=== PATIENT | female | born 1935 | race Caucasian/White ===

== ENCOUNTER → 2016-05-18 | Outpatient (REF) | payer MEDICARE ==
[~2016-05-18] MED LIST: ACET500T2; ACET65TA; AFRI0.65; AMLO10TA; AMLO10TA2 PO; ASPI1TAB24 PO; ASPI81TA63; BABY81CH; BENETAB; BISA5TA; CARB1TAB20 PO; COLA100C2; COUM2.5T11 PO; DIOV80TA; DRIS50002 PO; FERR325T3 PO; MAALOX; MILKSUS; MYLICON; NORV5TAB; OMEP40CA2 PO; PRIL20CA; PROBCAP4 PO; SENOKOT; TEGR200T; TRAM50TA2; TUMS500C; TYLE325T5 PO; ULTR50TA PO; VALS160T PO; VIACTIN; VITAMIN D50000 UNT; [UNRECOGNIZED DRUG - OTHER]; lactaid OR; vitamin B12 INJ
[2016-05-18 12:56] LABS: CARBAMAZEPINE (TEGRETOL) LEVEL 6.3 UG/ML (4.0-10.0)
== END ==
LOC: M LAB REF 11:51
PROVIDERS: ATTEND Family Medicine
DX: G50.0 Trigeminal neuralgia (principal); D51.9 Vitamin B12 deficiency anemia, unspecified

== ENCOUNTER → 2016-08-23 | Outpatient (CLI) | payer MEDICARE ==
--- NOTE | 2016-08-23 10:19 | REPMRS ---
Patient History The patient states she had a clinical breast exam in 12/25 Patient is postmenopausal and has history of other cancer. No known family history of cancer. Took hormonal contraceptives for 1 year. Digital Woman Screen Mammo: August 23, 2016 - Exam #: [id number] Bilateral CC and MLO view(s) were taken. Technologist: Kimmy mAes, Technologist Prior study comparison: August 14, 2015, digital woman screen mammo performed at [facility]. July 29, 2014, digital woman screen mammo performed at [facility]. July 26, 2013, bilateral bilat screen digital mammo, performed at [facility] ([facility]). FINDINGS: There are scattered fibroglandular densities. There has been no change in the appearance of the mammogram from the prior studies. There is a mild amount of scattered fibroglandular density which is fairly symmetric. There is no interval development of dominant mass, architectural distortion, or clustered microcalcification suggestive of malignancy. ASSESSMENT: BI-RADS/ACR category 1 mammogram. Negative. Recommendation Routine screening mammogram in 1 year (for women over age 40). This mammogram was interpreted with the aid of an FDA-approved computer-aided dectection system. Electronically Signed By: Shiv Guerra MD 08/23/16 [id number]
== END ==
LOC: M WHC 09:09
PROVIDERS: ATTEND Family Medicine
DX: Z12.31 Encounter for screening mammogram for malignant neoplasm of breast (principal)

== ENCOUNTER → 2016-08-31 | Outpatient (REF) | payer MEDICARE | LOC: M LAB REF 12:52 | PROVIDERS: ATTEND Physician Assistant | DX: J02.9 Acute pharyngitis, unspecified (principal) ==

== ENCOUNTER → 2016-10-08 | Outpatient (RCR) | payer MEDICARE ==
[~2016-10-08] MED LIST changes: +ASPI-161 PO; -ASPI1TAB24 PO; -COUM2.5T11 PO; +COUM2.5T17 PO; -ULTR50TA PO; +ULTR50TA8 PO
== END | disposition home or self-care (01) ==
LOC: M PT 09-29 08:16 → M OT 10-06 07:18 → M PT 08:15
PROVIDERS: ATTEND Physician Assistant
DX: Z51.89 Encounter for other specified aftercare (principal); M76.829 Posterior tibial tendinitis, unspecified leg
CPT/HCPCS: 97110; 97161; 97165; G8978; G8979; G8984; G8985; G8986

== ENCOUNTER 2016-10-13 08:01 | Outpatient (RCR) | payer MEDICARE | END 2016-11-08 | LOC: M OT 08:01 | PROVIDERS: ATTEND Physician Assistant | DX: M76.821 Posterior tibial tendinitis, right leg (principal); M19.031 Primary osteoarthritis, right wrist | CPT/HCPCS: 97110; 97112; 97162; 97530; G8978; G8979; G8980; G8990; G8991 ==

== ENCOUNTER 2016-11-01 08:05 | Outpatient (RCR) | payer MEDICARE | END 2016-11-08 | LOC: M PT 08:05 | PROVIDERS: ATTEND Physician Assistant | DX: H81.13 Benign paroxysmal vertigo, bilateral (principal) ==

== ENCOUNTER 2016-11-16 08:09 | Outpatient (RCR) | payer MEDICARE | END 2016-12-09 | disposition home or self-care (01) | LOC: M PT 08:09 | PROVIDERS: ATTEND Physician Assistant | DX: Z51.89 Encounter for other specified aftercare (principal); H81.13 Benign paroxysmal vertigo, bilateral | CPT/HCPCS: 97530; G8978; G8979 ==

== ENCOUNTER → 2016-11-25 | Outpatient (REF) | payer MEDICARE ==
[2016-11-30 14:14] LABS: HEMOGLOBIN A 89.6 % (94.0-98.0); HEMOGLOBIN F (FETAL) 8.3 % (0.0-2.0)
== END ==
LOC: M LAB REF 15:32
PROVIDERS: ATTEND Family Medicine
DX: D64.9 Anemia, unspecified (principal); G50.0 Trigeminal neuralgia; Z51.81 Encounter for therapeutic drug level monitoring

== ENCOUNTER → 2017-03-07 | Outpatient (REF) | payer MEDICARE | LOC: M LAB REF 13:20 | PROVIDERS: ATTEND Physician Assistant | DX: J02.9 Acute pharyngitis, unspecified (principal) ==

== ENCOUNTER 2017-05-02 11:12 | Outpatient (RCR) | payer MEDICARE | END 2017-05-11 | LOC: M PT 11:12 | DX: Z51.89 Encounter for other specified aftercare (principal); R42 Dizziness and giddiness | CPT/HCPCS: 97162 ==

== ENCOUNTER 2017-05-17 08:13 | Outpatient (RCR) | payer MEDICARE | END 2017-06-08 | LOC: M PT 08:13 | DX: Z51.89 Encounter for other specified aftercare (principal); H81.13 Benign paroxysmal vertigo, bilateral | CPT/HCPCS: 97112 ==

== ENCOUNTER → 2017-06-07 | Outpatient (REF) | payer MEDICARE ==
[2017-06-07 13:22] LABS: VITAMIN B12 LEVEL 374 PG/ML (247-911)
[2017-06-07 13:25] LABS: CARBAMAZEPINE (TEGRETOL) LEVEL 6.9 UG/ML (4.0-10.0)
== END ==
LOC: M LAB REF 12:19
DX: G50.0 Trigeminal neuralgia (principal); D51.9 Vitamin B12 deficiency anemia, unspecified; Z51.81 Encounter for therapeutic drug level monitoring
CPT/HCPCS: 82607

== ENCOUNTER 2017-06-14 08:18 | Outpatient (RCR) | payer MEDICARE | END 2017-07-09 | LOC: M PT 08:18 | DX: Z51.89 Encounter for other specified aftercare (principal); R42 Dizziness and giddiness | CPT/HCPCS: 97112 ==

== ENCOUNTER → 2017-08-16 | Outpatient (CLI) | payer MEDICARE | LOC: M WHC 09:01 | DX: Z12.31 Encounter for screening mammogram for malignant neoplasm of breast (principal); M85.80 Other specified disorders of bone density and structure, unspecified site | CPT/HCPCS: 77067 ==

== ENCOUNTER → 2017-12-14 | Outpatient (CLI) | payer MEDICARE | LOC: M WUC 09:56 | DX: R06.02 Shortness of breath (principal) | CPT/HCPCS: 71046 ==

== ENCOUNTER → 2018-01-19 | Outpatient (REF) | payer MEDICARE ==
[2018-01-19 14:53] LABS: ALBUMIN 3.2 GM/DL (3.2-5.2); ALBUMIN/GLOBULIN RATIO 0.82 (1.00-1.93); ALKALINE PHOSPHATASE 103 U/L (45-117); ALT/SGPT 11 U/L (12-78); ANION GAP 6 MEQ/L (8-16); AST/SGOT 14 U/L (7-37); BILIRUBIN,TOTAL 0.4 MG/DL (0.2-1.0); BLOOD UREA NITROGEN 20 MG/DL (7-18); CALCIUM LEVEL 9.1 MG/DL (8.8-10.2); CARBON DIOXIDE LEVEL 32 MEQ/L (21-32); CHLORIDE LEVEL 103 MEQ/L (98-107); CREATININE FOR GFR 0.56 MG/DL (0.55-1.30); GLOMERULAR FILTRATION RATE > 60.0 (>32); GLUCOSE, FASTING 98 MG/DL (70-100); POTASSIUM SERUM 4.2 MEQ/L (3.5-5.1); RHEUMATOID FACTOR QUANT < 10.0 IU/ML (<15.0); SODIUM LEVEL 141 MEQ/L (136-145); TOTAL PROTEIN 7.1 GM/DL (6.4-8.2)
[2018-01-19 14:59] LABS: FOLATE > 24.0 NG/ML
[2018-01-19 15:00] LABS: ESTIMATED AVERAGE GLUCOSE 100 MG/DL (60-110); HEMOGLOBIN A1c 5.1 %
[2018-01-19 15:24] LABS: BASO # 0.1 10^3/uL (0.0-0.2); BASO % 0.9 % (0.0-1.0); EOS # 0.3 10^3/uL (0.0-0.50); EOS % 3.6 % (0.0-3.0); HEMATOCRIT 34.7 % (36.0-47.0); HEMOGLOBIN 10.6 g/dl (12.0-15.5); IMMATURE GRANULOCYTE % 0.3 % (0-3.0); LYMPH # 1.5 10^3/uL (1.5-4.5); MEAN CORPUSCULAR HEMOGLOBIN 21.1 pg (27.0-33.0); MEAN CORPUSCULAR HGB CONC 30.5 g/dl (32.0-36.5); MEAN CORPUSCULAR VOLUME 69.1 fl (80.0-96.0); MONO # 0.9 10^3/uL (0.0-0.8); MONO % 10.3 % (0.0-5.0); NEUTROPHILS # 5.9 10^3/uL (1.8-7.7); NEUTROPHILS % 67.9 % (36.0-66.0); PLATELET COUNT, AUTOMATED 203 10^3/uL (150-450); RED BLOOD COUNT 5.02 10^6/uL (4.00-5.40); RED CELL DISTRIBUTION WIDTH 20.1 % (11.5-14.5); WHITE BLOOD COUNT 8.6 10^3/uL (4.0-10.0)
[2018-01-19 16:05] LABS: ERYTHROCYTE SEDIMENTATION RATE 30 mm/hr (0-30)
[2018-01-23 00:07] LABS: ANTI DOUBLE STRAND-DNA AB 12 IU/mL (0-9); ANTINUCLEAR ANTIBODIES DIRECT Positive (Negative); RNP ANTIBODIES <0.2 AI (0.0-0.9); SJOGREN'S ANTI SS-A <0.2 AI (0.0-0.9); SJOGREN'S ANTI SS-B <0.2 AI (0.0-0.9); SMITH ANTIBODIES <0.2 AI (0.0-0.9); VITAMIN B1 LEVEL WHOLE BLOOD 139.2 nmol/L (66.5-200.0); VITAMIN B6,PYRIDOXAL PHOSPHATE 5.9 ug/L (2.0-32.8); VITAMIN E(ALPHA TOCOPHEROL) 30.8 mg/L (9.0-29.0); VITAMIN E(GAMMA TOCOPHEROL) 0.8 mg/L (0.5-4.9)
[2018-01-24 10:27] LABS: DRVV SCREEN 38.8 SEC
[2018-01-24 10:33] LABS: PTT LUPUS TYPE ANTICOAG SCREEN 0.9 (0-1.2)
[2018-01-24 12:33] LABS: ALBUMIN 3.48 GM/DL (3.29-5.55); ALPHA-1-GLOBULIN % 5.1 % (2.9-4.9); ALPHA-1-GLOBULINS 0.36 GM/DL (0.17-0.41); ALPHA-2-GLOBULINS 0.78 GM/DL (0.42-0.99); BETA-1-GLOBULINS 0.45 GM/DL (0.28-0.60); BETA-1-GLOBULINS % 6.4 % (4.7-7.2); BETA-2-GLOBULINS % 7.2 % (3.2-6.5); GAMMA GLOBULIN % 21.3 % (11.1-18.8)
[2018-01-24 12:34] LABS: BETA-2-GLOBULINS 0.51 GM/DL (0.19-0.55); GAMMA GLOBULINS 1.51 GM/DL (0.65-1.58)
== END ==
LOC: M LABNEURO 10:26
DX: R42 Dizziness and giddiness (principal); G62.9 Polyneuropathy, unspecified
CPT/HCPCS: 82746

== ENCOUNTER → 2018-07-03 | Outpatient (REF) | payer MEDICARE ==
[~2018-07-03] MED LIST changes: -AMLO10TA2 PO; +AMLO10TA5 PO; -DRIS50002 PO; +DRIS50003 PO
[2018-07-03 18:20] LABS: FERRITIN 38 NG/ML (8-252)
[2018-07-03 18:28] LABS: FOLATE > 24.0 NG/ML; VITAMIN B12 LEVEL 477 PG/ML
== END ==
LOC: M LAB REF 16:45
PROVIDERS: ATTEND Family Medicine
DX: D56.8 Other thalassemias (principal)

== ENCOUNTER → 2018-08-23 | Outpatient (CLI) | payer MEDICARE ==
--- NOTE | 2018-08-23 11:36 | REPMRS ---
Patient History The patient states she has not had a clinical breast exam in over a year. No known family history of cancer. Took hormonal contraceptives for 1 year. Digital Woman Screen Mammo: August 23, 2018 - Exam #: [id number] Bilateral CC and MLO view(s) were taken. Technologist: Kimmy Ames, Technologist Prior study comparison: August 16, 2017, digital woman screen mammo performed at [facility]. August 23, 2016, digital woman screen mammo performed at [facility]. August 14, 2015, digital woman screen mammo performed at [facility]. FINDINGS: There are scattered fibroglandular densities. There has been no change in the appearance of the mammogram from the prior studies. There is a mild amount of scattered fibroglandular density which is fairly symmetric. There is no interval development of dominant mass, architectural distortion, or clustered microcalcification suggestive of malignancy. 3-D tomosynthesis shows no additional findings. Assessment: BI-RADS/ACR category 1 mammogram. Negative Mammogram. Recommendation Routine screening mammogram of both breasts in 1 year (for women over age 40). This patient's Lifetime Breast Cancer RIsk is estimated at 0.7 %. This mammogram was interpreted with the aid of an FDA-approved computer-aided dectection system. Electronically Signed By: Shiv Guerra MD 08/23/18 [id number]
== END ==
LOC: M WHC 08:44
PROVIDERS: ATTEND Family Medicine
DX: Z12.31 Encounter for screening mammogram for malignant neoplasm of breast (principal); Z78.0 Asymptomatic menopausal state

== ENCOUNTER → 2018-10-20 | Outpatient (CLI) | payer MEDICARE ==
--- NOTE | 2018-10-20 10:03 | REP ---
CHEST, TWO VIEWS: Two views of the chest are performed and compared to a prior study of 12/14/2017. There is mild cardiomegaly. There is mild bibasilar fibroatelectatic change. There is mild elevation of the right hemidiaphragm. No new infiltrate is seen. There is calcification and tortuosity of the thoracic aorta. The mediastinal silhouette is unchanged. There are mild degenerative changes of the spine. IMPRESSION: Mild cardiomegaly and stable chronic findings. No evidence of acute infiltrate. Electronically Signed by Justyn Tamayo MD 10/21/2018 10:49 A
== END ==
LOC: M WUC 09:12
PROVIDERS: ATTEND Physician Assistant
DX: I51.7 Cardiomegaly (principal); R05 Cough

== ENCOUNTER → 2018-12-15 | Outpatient (REF) | payer MEDICARE | LOC: M LAB REF 16:36 | PROVIDERS: ATTEND Family Medicine | DX: G50.0 Trigeminal neuralgia (principal) ==

== ENCOUNTER → 2019-11-01 | Outpatient (CLI) | payer MEDICARE ==
[~2019-11-01] MED LIST changes: +ACET-683 PO; +ACET1TAB55 PO; -AMLO10TA5 PO; +AMLO1TAB25 PO; +ASPI-312 PO; +ASPI81TA86 PO; +ASPI81TAEC PO; +CARB20TA PO; +GABA-843 PO; +IBUP1TAB6 PO; -OMEP40CA2 PO; +OMEP40CA97 PO; +TRAM50TA2 PO; -VALS160T PO; +VALS160T2 PO; +VITA50005 PO; +VITMTA PO; +XARE10TA PO
--- NOTE | 2020-01-15 12:03 | DEXA ---
AP SPINE L1 - L4 1.018 -1.4 0.5 LT FEMUR TOTAL 0.753 -2.0 0.2 LT NECK 0.689 -2.5 -0.2 RT FEMUR TOTAL 0.752 -2.0 0.2 RT NECK 0.660 -2.7 -0.4 TOTAL BODY TOTAL OTHER COMMENTS: There is low bone density of the spine. 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 The density of the spine is increased 7.3% since the initial exam on 04/14/2000. The increased 3.7% since most recent exam on 08/16/2017. The density of the left hip has decreased 20.3% since the initial exam on 05/24/2002. The density of the left hip has decreased 2.5% since the most recent exam on 08/16/2017. The density of the right hip has decreased 19.8% since the initial exam on 04/14/2000. The density of the right hip has increased 1.6% since the most recent exam on 08/16/2017. FOLLOW-UP: Recommendation for the next bone density exam: 2 years. BRYANT
== END ==
LOC: M WHC 13:16
PROVIDERS: ATTEND Family Medicine
DX: Z13.820 Encounter for screening for osteoporosis (principal); M85.88 Other specified disorders of bone density and structure, other site; M81.0 Age-related osteoporosis without current pathological fracture

== ENCOUNTER → 2019-11-27 | Outpatient (CLI) | payer MEDICARE ==
--- NOTE | 2020-01-04 07:44 | REP ---
CHEST X-RAY: 2-VIEWS COMPARISON: 10/20/2018. HISTORY: Shortness of breath. FINDINGS: There is elevation of the right hemidiaphragm unchanged due to a large anterior eventration. There is chronic atelectasis versus linear fibrosis in the right middle lobe above the elevated right hemidiaphragm also unchanged. The lung romero are otherwise clear. Pleural angles are sharp. Heart size is borderline unchanged. The thoracic aorta is somewhat tortuous. Pulmonary vasculature is not increased. No acute bony abnormality is seen. There are clips in the right hemidiaphragm. IMPRESSION: Large eventration elevating right hemidiaphragm. Plate-like atelectasis versus scarring right base. Otherwise, no acute disease. MTDD
== END ==
LOC: M WUC 10:17
PROVIDERS: ATTEND Family Medicine
DX: J98.6 Disorders of diaphragm (principal)

== ENCOUNTER 2019-12-25 08:33 | Inpatient (IN) | payer MEDICARE ==
[~2019-12-25] VITALS: Ht 157.5 cm; Wt 73.6 kg
[~2019-12-25 08:33] MED LIST changes: -ACET-683 PO; -ACET1TAB55 PO; -ASPI-312 PO; -ASPI81TA86 PO; -ASPI81TAEC PO; -CARB20TA PO; -GABA-843 PO; -IBUP1TAB6 PO; -TRAM50TA2 PO; -VITA50005 PO; -VITMTA PO; -XARE10TA PO
[2019-12-25] MEDS ORDERED: MORPHINE 4 MG/ML 1ML VIAL/SYRINGE (J2270) IV ONE (09:00)
[2019-12-25] MEDS ORDERED: NS 1,000 ML IV SCH (09:00)
[2019-12-25] MEDS ORDERED: ONDANSETRON 4MG/2ML VIAL IV ONE (09:00)
[2019-12-25 09:29] LABS: BASO # 0.1 10^3/uL (0.0-0.2); BASO % 0.9 % (0.0-1.0); EOS # 0.3 10^3/uL (0.0-0.5); EOS % 3.3 % (0.0-3.0); HEMOGLOBIN 10.5 g/dl (12.0-15.5); LYMPH # 1.1 10^3/uL (1.5-5.0); LYMPH % 12.2 % (24.0-44.0); MEAN CORPUSCULAR HGB CONC 30.9 g/dl (32.0-36.5); MONO # 0.6 10^3/uL (0.0-0.8); MONO % 7.1 % (0.0-5.0); NEUTROPHILS # 6.6 10^3/uL (1.5-8.5); NEUTROPHILS % 75.6 % (36.0-66.0); PLATELET COUNT, AUTOMATED 270 10^3/uL (150-450); WHITE BLOOD COUNT 8.7 10^3/uL (4.0-10.0)
[2019-12-25 09:44] LABS: INR 0.95; PROTHROMBIN TIME 12.9 SECONDS (11.8-14.0)
[2019-12-25 10:19] LABS: BLOOD UREA NITROGEN 19 MG/DL (7-18); CALCIUM LEVEL 8.4 MG/DL (8.8-10.2); CARBON DIOXIDE LEVEL 32 MEQ/L (21-32); CHLORIDE LEVEL 105 MEQ/L (98-107); CK-MB VALUE MASS 1.9 NG/ML (<3.6); CPK CREATINE PHOSPHOKINASE 74 U/L (26-192); GLOMERULAR FILTRATION RATE > 60.0 (>32); GLUCOSE, FASTING 105 MG/DL (70-100); MB/CK RELATIVE INDEX 2.57 (< OR =4); POTASSIUM SERUM 4.1 MEQ/L (3.5-5.1); SODIUM LEVEL 141 MEQ/L (136-145)
--- NOTE | 2019-12-25 10:35 | REPVR ---
PROCEDURE INFORMATION: Exam: XR Chest, 1 View Exam date and time: 12/25/2019 10:16 AM Age: 84 years old Clinical indication: Pain; Other: Broken hip; Additional info: Preop TECHNIQUE: Imaging protocol: XR of the chest Views: 1 view. COMPARISON: CR CHEST 2 VIEW 11/27/2019 10:17 AM (report not provided) FINDINGS: Tubes, catheters and devices: Surgical clips again overlie the right upper quadrant. Lungs: There is mild atelectasis/scarring at the right base. The lungs are otherwise clear. Pleural space: Unremarkable. No pleural effusion. No pneumothorax. Heart/Mediastinum: The cardiomediastinal silhouette is fairly stable in appearance, allowing for differences in technique. Diaphragm: The right hemidiaphragm is again elevated. Bones/joints: Degenerative changes again involve the spine and shoulders. IMPRESSION: No evidence for acute pulmonary disease. Electronically signed by: Juan Francisco Obrien On 12/25/2019 10:35:56 AM
--- NOTE | 2019-12-25 10:38 | REPVR ---
PROCEDURE INFORMATION: Exam: XR Left Hip with Pelvis when Performed Exam date and time: 12/25/2019 10:16 AM Age: 84 years old Clinical indication: Pain and injury or trauma; Fall; Initial encounter; Fracture of pelvis & hip; Not specified; Neck of femur; Hip pain and pelvic pain; Left hip; Patient HX: PT fell; Additional info: Include pelvis trauma TECHNIQUE: Imaging protocol: XR Left hip with pelvis when performed. Views: 2 or 3 views. COMPARISON: No relevant prior studies available. FINDINGS: Bones/joints: There is an acute, comminuted fracture through the intertrochanteric left femur, with fracture lines extending between the greater and lesser trochanters. The lesser trochanter is fractured and displaced in a comminuted fashion, with individual fragments measuring up to 3.6 cm. No fracture is identified elsewhere. The left hip joint is normally aligned. Right hip joint alignment cannot be confirmed without a lateral view. The femoral head articular contours are maintained, and the femoral heads appear to be of normal density. There is very mild osteophyte formation about the bilateral hip and sacroiliac joints. Lower lumbar spondylosis is noted. Mild productive change is present along the greater trochanter on the right. No focal lytic or blastic lesion is identified. Soft tissues: The soft tissues appear grossly unremarkable. IMPRESSION: 1. Acute proximal left femoral fracture. 2. Degenerative changes as described. Electronically signed by: Juan Francisco Obrien On 12/25/2019 10:37:34 AM
[2019-12-25] MEDS ORDERED: ACETAMINOPHEN TAB 650MG DOSE (2X325MG) PO PRN ×2 (11:00→19:30)
[2019-12-25] MEDS ORDERED: IBUP1TAB6 PO (11:11)
[2019-12-25] MEDS ORDERED: VITA50005 PO (11:11)
[2019-12-25] MEDS ORDERED: ASPI81TA86 PO (11:11)
[2019-12-25] MEDS ORDERED: ACET1TAB55 PO (11:11)
[2019-12-25] MEDS ORDERED: VITMTA PO (11:11)
[2019-12-25] MEDS ORDERED: MORPHINE 2 MG/ML 1ML VIAL (J2270) IV PRN (11:15)
--- NOTE | 2019-12-25 11:18 | HPEPDOC ---
General Date of Admission Dec 25, 2019 at 11:00 Date of Service: Dec 25, 2019 Chief Complaint The patient is a 84-year-old female admitted with a reason for visit of Closed Intertrochanteric Fx Of Left Femur. Source: Patient Exam Limitations: No limitations Timing/Duration: 4-6 hours Severity: Moderate History of Present Illness Patient is 84 years old female with past history of hypertension, vitamin D de ficiency, hyperlipidemia, trigeminal neuralgia, aortic stenosis presented hospital with left hip pain. Patient stated that she developed mechanical fall when she moved furniture. In ER patient was found to have Acute proximal left femoral fracture on the x-ray. Orthopedic surgeon Dr. Garcia was contacted by phone, he will evaluate patient today. Home Medications Scheduled Amlodipine Besylate (Amlodipine Besylate) 10 Mg Tab, 10 MG PO DAILY, (Reported) Carbamazepine (Carbamazepine) 200 Mg Tab, 200 MG PO DAILY, (Reported) Ergocalciferol (Vitamin D2) (Drisdol) 50,000 Unit Cap, 50,000 UNIT PO QWEEK, (Reported) Ferrous Sulfate (Ferrous Sulfate) 325 Mg Tab, 325 MG PO BID, (Reported) Lactobacillus Acidophilus (Probiotic) 1 Cap Cap, 1 CAP PO DAILY, (Reported) Omeprazole (Omeprazole) 40 Mg Cap, 40 MG PO DAILY, (Reported) Valsartan/Hydrochlorothiazide (Valsartan-Hctz 160-12.5 mg Tab) 1 Tab Tab, 1 TAB PO DAILY, (Reported) Warfarin Sodium (Coumadin) 2.5 Mg Tab, 2.5 MG PO 1T, (Reported) [lactaid] , OR PRN, (Reported) [vitamin B12] , INJ QMONTH, (Reported) Scheduled PRN Acetaminophen (Tylenol) 325 Mg Tab, 650 MG PO Q4HP PRN for TEMP > 100, (Reported) Tramadol HCl (Ultram) 50 Mg Tab, 50 MG PO Q4HP PRN for MODERATE PAIN (PS 5-7), (Reported) Allergies Coded Allergies: Penicillins (Verified Allergy, Unknown, 12/25/19) Quinolones (Verified Allergy, Unknown, 12/25/19) codeine (Verified Allergy, Unknown, 12/25/19) Past Medical History Medical History Osteoarthritis Hypertension Vitamin D deficiency Dyslipidemia Lactose intolerance Trigeminal neuralgia Gastroesophageal reflux disease De Quervain's tenosynovitis Aortic stenosis. Surgical History Right total knee replacement Family History I personally reviewed family history and found not pertinent Social History * Smoker: Denies Alcohol: Denies Drugs: denies A-FIB/CHADSVASC A-FIB History Current/History of A-Fib/PAF?: No Current PO Anticoag Therapy: No Review of Systems Constitutional: Denies: Chills Eyes: Denies: Pain ENT: Denies: Head Aches Skin: Denies: Rash, Lesions Pulmonary: Denies: Dyspnea Cardiovascular: Denies: Chest Pain, Palpitations Gastrointestinal: Denies: Nausea Hematologic: Denies: Bruising Endocrine: Denies: Polydipsia Musculoskeletal: Reports: Leg Pain Neurological: Denies: Weakness, Numbness Psych: Reports: Mood Normal Physical Examination General Exam: Positive: Alert Eye Exam: Positive: PERRLA ENT Exam: Positive: Atraumatic Neck Exam: Positive: Supple; Negative: JVD Chest Exam: Positive: Clear to auscultation Heart Exam: Positive: Rate Normal Telemetry: Positive: No significant arrhythmia Abdomen Exam: Positive: Normal bowel sounds Extremity Exam: Positive: Tenderness ( left hip); Negative: Clubbing, Cyanosis Skin Exam: Positive: Nl turgor and temperature Neuro Exam: Positive: Strength at 5/5 X4 ext, Cranial Nerves 3-12 NL Psych Exam: Positive: Mental status NL Vital Signs Vital Signs Date Time Temp Pulse Resp B/P (MAP) Pulse Ox O2 Delivery O2 Flow Rate FiO2 12/25/19 09:23 18 Room Air 12/25/19 08:44 97.3 67 133/63 (86) 95 Laboratory Data Labs 24H Laboratory Tests 2 12/25/19 08:15: Anion Gap 4L, Glomerular Filtration Rate > 60.0, Calcium Level 8.4L, Total Creatine Kinase 74, Creatine Kinase MB 1.9, Creatine Kinase MB Relative Index 2.57 12/25/19 08:51: Immature Granulocyte % (Auto) 0.9, Neutrophils (%) (Auto) 75.6H, Lymphocytes (%) (Auto) 12.2L, Monocytes (%) (Auto) 7.1H, Eosinophils (%) (Auto) 3.3H, Basophils (%) (Auto) 0.9, Neutrophils # (Auto) 6.6, Lymphocytes # (Auto) 1.1L, Monocytes # (Auto) 0.6, Eosinophils # (Auto) 0.3, Basophils # (Auto) 0.1, Nucleated Red Blood Cells % (auto) 0.0, Prothrombin Time 12.9, Prothromb Time International Ratio 0.95, Activated Partial Thromboplast Time 23.0L CBC/BMP Laboratory Tests 12/25/19 08:15 12/25/19 08:51 Assessment/Plan Patient is 84 years old female with past history of hypertension, vitamin D deficiency, hyperlipidemia, trigeminal neuralgia, aortic stenosis presented hospital with left hip pain. Patient stated that she developed mechanical fall when she moved furniture. In ER patient was found to have Acute proximal left femoral fracture on the x-ray. Orthopedic surgeon Dr. Garcia was contacted by phone, he will evaluate patient today. Problems (1) Closed intertrochanteric fracture of left femur Status: Acute Problem Text: Appreciate/agree with orthopedic team consult patient medically clear for surgery Pain management (2) GERD (gastroesophageal reflux disease) Status: Chronic Problem Text: Continue PPI (3) Hyperlipidemia Status: Chronic Problem Text: Continue statin (4) Hypertension Status: Chronic Problem Text: Blood pressures under control continue home meds Plan / VTE VTE Prophylaxis Ordered?: Yes RODRIGUEZ GARCIA DO Dec 25, 2019 11:17
[2019-12-25] MEDS ORDERED: hydroCHLOROthiazide 12.5 MG CAPSULE PO ONE (11:30)
[2019-12-25] MEDS ORDERED: VALSARTAN 80 MG TAB (DIOVAN) PO ONE (11:30)
[2019-12-25] MEDS ORDERED: IBUPROFEN 600MG TAB PO PRN (11:30)
[2019-12-25 11:45] VITALS: BP 112/57
[2019-12-25] MEDS ORDERED: fentaNYL 100 MCG/2 ML INJECTION (J3010) As Ordered ONE ×2 (16:32→19:18)
[2019-12-25] MEDS ORDERED: propofoL 200 MG/20 ML VIAL As Ordered ONE ×2 (16:33→17:00)
[2019-12-25] MEDS ORDERED: ONDANSETRON 4MG/2ML VIAL As Ordered ONE (16:34)
[2019-12-25] MEDS ORDERED: TRANEXAMIC ACID 100 MG/ML 10ML VIAL As Ordered ONE (16:50)
[2019-12-25] MEDS ORDERED: CLINDAMYCIN 600 MG/50 ML PREMIX BAG As Ordered ONE (16:50)
[2019-12-25] MEDS ORDERED: CLINDAMYCIN INJ 900MG/6ML VIAL As Ordered ONE (16:52)
[2019-12-25] MEDS ORDERED: MIDAZOLAM INJ 2MG/2ML VIAL (J2250 PER 1MG) As Ordered ONE (16:59)
[2019-12-25] MEDS ORDERED: GLYCOPYRROLATE INJ 0.2 MG/ML 2 ML VIAL As Ordered ONE (17:53)
[2019-12-25] MEDS ORDERED: PHENYLephrine HCL 500 MCG/5 ML (100MCG/ML) SYRINGE (J2370) As Ordered ONE (17:53)
[2019-12-25] MEDS ORDERED: ePHEDrine SULFATE 25 MG/5 ML(5MG/ML) SYRINGE As Ordered ONE (17:53)
[2019-12-25] MEDS ORDERED: NORCO, ANEXSIA 5/325MG TABLET (HYDROcodone/ACETAMINOPHEN) As Ordered ONE ×2 (19:19→19:55)
[2019-12-25] MEDS: fentaNYL 100 MCG/2 ML INJECTION (J3010) IV PRN ×3 (19:20→20:00)
[2019-12-25] MEDS: NORCO, ANEXSIA 5/325MG TABLET (HYDROcodone/ACETAMINOPHEN) PO PRN ×2 (19:20→19:55)
[2019-12-25] MEDS ORDERED: PERCOCET 5MG/325MG TAB PO PRN (19:30)
[2019-12-25] MEDS ORDERED: LR 1,000 ML IV SCH ×2 (19:30→19:45)
[2019-12-25] MEDS ORDERED: ONDANSETRON 4MG/2ML VIAL IV PRN (19:45)
[2019-12-25] MEDS ORDERED: METOCLOPRAMIDE INJ 10MG/2ML VIAL (J2765 PER 1) IV PRN (19:45)
[2019-12-25 20:50] VITALS: BP 108/61
[2019-12-25] MEDS: MULTIVITAMINS/MINERALS THERAP 1 TAB PO SCH (21:00)
[2019-12-25] MEDS ORDERED: HEPARIN SOD (PORCINE) 5000UNITS/ML 1ML VIAL/SYRINGE SC SCH (21:00)
[2019-12-25] MEDS: MORPHINE 2 MG/ML 1ML VIAL (J2270) IV PRN (21:07)
[2019-12-25 21:20] VITALS: BP 110/56
[2019-12-25 21:50] VITALS: BP 108/51
[2019-12-25 22:50] VITALS: BP 113/53
[2019-12-26] VITALS (10 sets, daily range): BP systolic 93–129; BP diastolic 46–58
[2019-12-26] MEDS: MORPHINE 2 MG/ML 1ML VIAL (J2270) IV PRN (04:52)
[2019-12-26] MEDS: ACETAMINOPHEN 500 MG TAB PO SCH ×3 (06:00→21:45)
[2019-12-26 07:40] LABS: HEMATOCRIT 25.5 % (36.0-47.0); MEAN CORPUSCULAR HEMOGLOBIN 20.5 pg (27.0-33.0); MEAN CORPUSCULAR HGB CONC 29.8 g/dl (32.0-36.5); MEAN CORPUSCULAR VOLUME 68.9 fl (80.0-96.0); PLATELET COUNT, AUTOMATED 218 10^3/uL (150-450)
[2019-12-26 07:46] LABS: HEMOGLOBIN 7.6 g/dl (12.0-15.5)
[2019-12-26 08:00] LABS: CALCIUM LEVEL 7.9 MG/DL (8.8-10.2); CREATININE FOR GFR 1.1 MG/DL (0.55-1.30); GLOMERULAR FILTRATION RATE 50.5 (>32); MAGNESIUM LEVEL 1.9 MG/DL (1.8-2.4); POTASSIUM SERUM 4.9 MEQ/L (3.5-5.1)
[2019-12-26] MEDS: OMEPRAZOLE 20 MG CAP PO SCH (08:09)
[2019-12-26] MEDS: carBAMazepine 200 MG TAB PO SCH (08:09)
[2019-12-26] MEDS: traMADol 50 MG TAB PO PRN ×2 (08:12→21:46)
--- NOTE | 2019-12-26 08:18 | CR ---
DATE OF CONSULTATION: 12/25/2019 CHIEF COMPLAINT: Left hip fracture. HISTORY OF PRESENT ILLNESS: This is an 84-year-old female who had a mechanical fall at home. She was in the basement. She tripped over a 2 x 4 that was underneath the freezer. She had a mechanical fall, no head injury. She was unable to ambulate afterwards. She has left hip pain. She had prior, what sounds like, pubic rami fracture treated nonoperatively. She has had a right total knee arthroplasty. I was called by the Emergency Department, Dr. Almaraz, to assess the patient. PAST MEDICAL HISTORY: Per the Hospitalist report, Dr. Fagan. This includes: 1. Osteoarthritis. 2. Hypertension. 3. Vitamin D deficiency. 4. Dyslipidemia. 5. Lactose intolerance. 6. Trigeminal neuralgia. 7. Gastroesophageal reflux disease. 8. De Quervain tenosynovitis. 9. Aortic stenosis. MEDICATIONS: - Amlodipine. - Carbamazepine. - Vitamin D2. - Ferrous sulfate. - Probiotic. - Omeprazole. - Valsartan. - Coumadin 2.5 mg. ALLERGIES: PENICILLIN, QUINOLONES, CODEINE. SURGICAL HISTORY: Right total knee arthroplasty. SOCIAL HISTORY: She lives alone. She has good family supports. Her son is a surgical rep at [employer]. She is here with Kristen today. She uses a walker outside the house, nothing inside the house. No cigarettes or tobacco use. PHYSICAL EXAMINATION: This is a well-appearing fit 84-year-old female in no acute distress. The left lower extremity is closed, neurologically intact. Vital signs are stable. She is alert and oriented x3. Normal sensation and motor function in her foot. The foot is warm and well perfused. Strong dorsalis pedis pulses. She can wiggle her toes, dorsiflex and plantarflex the foot. LABORATORY: White blood cell count 8.7, hemoglobin 10.5. PT 12.9, INR 0.958, PTT 23. Chemistries overall are normal. IMAGING DATA: Radiographs were taken of the left hip. This shows an at least three part comminuted intratrochanteric hip fracture on the left side. There are mild degenerative changes to the left hip. No other obvious abnormalities. ASSESSMENT AND PLAN: This 84-year-old female has a left-sided intertrochanteric hip fracture. The treatment for this is a TFN-A open reduction and internal fixation with intramedullary nail. She has been cleared by the Hospitalist. However, upon speaking with anesthesiologist time motion analyst, Dr. Stone, due to the history of aortic stenosis and likely preference for spinal anesthetic, we are trying to track down an echocardiogram that was performed as recent as two years ago. The patient states that this is extremely mild aortic stenosis; however, anesthesia is wishing to put the case on hold until either the report can be obtained or a new echocardiogram can be obtained. I have let the patient, as well as Kristen her next of kin, know about this. However, I did consent them for the left hip open reduction and internal fixation after a discussion of the pros, cons, risks, benefits, and nonsurgical risks of surgical intervention for her left hip fracture. Specific surgical risks include, but are not limited to infection, pain, stiffness, damage to surrounding structures, bleeding, weakness, limp, delayed malunion or nonunion, anesthetic complications, blood clots, , other risks, and need for further surgery. She signed the consent form for the surgery, as well as the possible need for blood products and I joaquina the left lower extremity. I asked her to remain fasting in preparation for the case either tonight or tomorrow if the echocardiogram is not able to be obtained. BRYANT
[2019-12-26] MEDS: MIRALAX *UNIT DOSE* 17GM PACKET PO SCH (09:00)
[2019-12-26] MEDS: amLODIPine 10 MG TAB PO SCH (09:00)
[2019-12-26] MEDS ORDERED: ASPIRIN 81 MG ENTERIC TAB PO SCH (09:00)
[2019-12-26] MEDS: MOM 30ML SUSPENSION UDC PO SCH (09:00)
--- NOTE | 2019-12-26 14:31 | IPNPDOC ---
Text Note Date of Service The patient was seen on 12/26/19. NOTE Subjective: Patient developed lightheadedness in the morning with hypotension. Patient denies fever, chills, nausea, vomiting, diarrhea or dysuria Objective: GENERAL APPEARANCE: NAD HEENT: no scleral icterus, no JVD, EOMI CARDIOVASCULAR: S1S2 LUNGS: CTA ABDOMEN: soft & not tender w palpitation MUSCULOSKELETAL: no cyanosis, no swelling, tenderness over left hip INTEGUMENT: no generalized palor NEUROLOGICAL: cranial nerve function from 2-12 intact intact, follows commands, speech not dysarthric Assessment/Plan Patient is 84 years old female with past history of hypertension, vitamin D deficiency, hyperlipidemia, trigeminal neuralgia, aortic stenosis presented hospital with left hip pain. Patient stated that she developed mechanical fall when she moved furniture. In ER patient was found to have Acute proximal left femoral fracture on the x-ray. Orthopedic surgeon Dr. Garcia was contacted by phone, he will evaluate patient today. Problems (1) Closed intertrochanteric fracture of left femur orthopedic team follows patient Patient tolerated surgery well Pain management (2) GERD (gastroesophageal reflux disease) Continue PPI (3) Hyperlipidemia Continue statin (4) Hypertension Blood pressures under control continue home meds Acute blood loss anemia Due to surgery 2 units of blood transfusion H&H every 6 hours VS,Fishbone, I+O VS, Fishbone, I+O Laboratory Tests 12/26/19 06:49 Vital Signs Date Time Temp Pulse Resp B/P (MAP) Pulse Ox O2 Delivery O2 Flow Rate FiO2 12/26/19 12:55 98.3 81 16 104/49 95 Nasal Cannula 2.0 I&O- Last 24 Hours up to 6 AM 12/26/19 06:00 Intake Total 1920 ml Output Total 375 ml Balance 1545 ml RODRIGUEZ GARCIA DO Dec 26, 2019 14:31
[2019-12-26] MEDS: POLYVINYL ALCOHOL OPHTH SOLN 15 ML(LIQUITEARS) OU SCH ×2 (17:00→21:44)
[2019-12-26] MEDS ORDERED: RIVAROXABAN 10 MG TAB (XARELTO) PO SCH (18:00)
[2019-12-26 19:19] LABS: HEMATOCRIT 27.6 % (36.0-47.0); HEMOGLOBIN 8.8 g/dl (12.0-15.5)
[2019-12-26] MEDS: MULTIVITAMINS/MINERALS THERAP 1 TAB PO SCH (21:00)
[2019-12-27 02:09] LABS: HEMATOCRIT 29.1 % (36.0-47.0); HEMOGLOBIN 9.2 g/dl (12.0-15.5)
[2019-12-27] MEDS: traMADol 50 MG TAB PO PRN ×2 (04:55→11:39)
[2019-12-27 06:00] VITALS: BP 142/54
[2019-12-27] MEDS: ACETAMINOPHEN 500 MG TAB PO SCH ×2 (06:14→14:24)
[2019-12-27] MEDS ORDERED: NS 1,000 ML IV SCH (08:15)
[2019-12-27 08:35] LABS: HEMATOCRIT 29.6 % (36.0-47.0); HEMOGLOBIN 9.5 g/dl (12.0-15.5)
[2019-12-27 09:00] VITALS: BP 106/45
[2019-12-27] MEDS: MOM 30ML SUSPENSION UDC PO SCH ×3 (09:00→10:19)
[2019-12-27] MEDS: MIRALAX *UNIT DOSE* 17GM PACKET PO SCH (09:00)
[2019-12-27] MEDS: amLODIPine 10 MG TAB PO SCH ×2 (09:00→10:08)
[2019-12-27] MEDS ORDERED: FLUBLOK(EGG FREE)(QUAD)INFLUENZA VACC 0.5ML SYRINGE 18YRS & OLDER IM ONE (09:00)
[2019-12-27 10:00] VITALS: BP 106/45
[2019-12-27] MEDS: OMEPRAZOLE 20 MG CAP PO SCH (10:08)
[2019-12-27] MEDS: carBAMazepine 200 MG TAB PO SCH (10:08)
[2019-12-27] MEDS: POLYVINYL ALCOHOL OPHTH SOLN 15 ML(LIQUITEARS) OU SCH ×2 (10:10→12:58)
[2019-12-27] MEDS ORDERED: XARE10TA PO (12:08)
[2019-12-27 14:00] VITALS: BP 124/70
--- NOTE | 2019-12-27 16:41 | DS.PDOC ---
Discharge Summary General Date of Admission Dec 25, 2019 at 11:00 Date of Discharge 12/27/19 Discharge Summary PROCEDURES PERFORMED DURING STAY: Left hip fixation ADMITTING DIAGNOSES: Closed intertrochanteric fracture of left femur GERD (gastroesophageal reflux disease) Hyperlipidemia Hypertension Acute blood loss anemia DISCHARGE DIAGNOSES: Closed intertrochanteric fracture of left femur GERD (gastroesophageal reflux disease) Hyperlipidemia Hypertension Acute blood loss anemia COMPLICATIONS/CHIEF COMPLAINT: Closed Intertrochanteric Fx Of Left Femur. HISTORY OF PRESENT ILLNESS: Patient is 84 years old female with past history of hypertension, vitamin D deficiency, hyperlipidemia, trigeminal neuralgia, aortic stenosis presented hospital with left hip pain. Patient stated that she developed mechanical fall when she moved furniture. In ER patient was found to have Acute proximal left femoral fracture on the x-ray. Orthopedic surgeon Dr. Garcia was contacted by phone, he will evaluate patient today. HOSPITAL COURSE: During hospital stay following issue addressed (1) Closed intertrochanteric fracture of left femur orthopedic team follows patient Patient tolerated surgery well Pain management (2) GERD (gastroesophageal reflux disease) Continue PPI (3) Hyperlipidemia Continue statin (4) Hypertension Blood pressures under control continue home meds Acute blood loss anemia Due to surgery 2 units of blood transfusion H&H every 6 hours DISCHARGE MEDICATIONS: Please see below. ALLERGIES: Please see below. PHYSICAL EXAMINATION ON DISCHARGE: VITAL SIGNS: Please see below. GENERAL APPEARANCE: NAD HEENT: no scleral icterus, no JVD, EOMI CARDIOVASCULAR: S1S2 LUNGS: CTA ABDOMEN: soft & not tender w palpitation MUSCULOSKELETAL: no cyanosis, no swelling, tenderness over left hip INTEGUMENT: no generalized palor NEUROLOGICAL: cranial nerve function from 2-12 intact intact, follows commands, speech not dysarthric LABORATORY DATA: Please see below. IMAGING: [facility] NAME: SUE RIVAS DATE OF : 1935 BUSINESS NUMBER: [id number] AGE: 84 SEX: F REPORT #: [id number] ROOM: M ED TECHNOLOGIST: GLORIA DOCTOR: Clark Almaraz M.D. Ordered for Date&Time: 12/25/19 0851 cc: [~ rep ct ivnm] Service Date&Time: 12/25/19 1016 This report is in Signed status. Interpretation performed by [facility]. Thank you for having your radiology procedures performed at [facility] RADIOLOGY REPORT Date&Time printed: [~ rep prt dt last] [~ rep prt tm last] Page 2 of 2 [place] [id number] RADIOLOGY REPORT This report is in Signed status. Interpretation performed by [facility]. Thank you for having your radiology procedures performed at [facility] RADIOLOGY REPORT Date&Time printed: [~ rep prt dt last] [~ rep prt tm last] Page 1 of 1 PROCEDURE INFORMATION: Exam: XR Left Hip with Pelvis when Performed Exam date and time: 12/25/2019 10:16 AM Age: 84 years old Clinical indication: Pain and injury or trauma; Fall; Initial encounter; Fracture of pelvis & hip; Not specified; Neck of femur; Hip pain and pelvic pain; Left hip; Patient HX: PT fell; Additional info: Include pelvis trauma TECHNIQUE: Imaging protocol: XR Left hip with pelvis when performed. Views: 2 or 3 views. COMPARISON: No relevant prior studies available. FINDINGS: Bones/joints: There is an acute, comminuted fracture through the intertrochanteric left femur, with fracture lines extending between the greater and lesser trochanters. The lesser trochanter is fractured and displaced in a comminuted fashion, with individual fragments measuring up to 3.6 cm. No fracture is identified elsewhere. The left hip joint is normally aligned. Right hip joint alignment cannot be confirmed without a lateral view. The femoral head articular contours are maintained, and the femoral heads appear to be of normal density. There is very mild osteophyte formation about the bilateral hip and sacroiliac joints. Lower lumbar spondylosis is noted. Mild productive change is present along the greater trochanter on the right. No focal lytic or blastic lesion is identified. Soft tissues: The soft tissues appear grossly unremarkable. IMPRESSION: 1. Acute proximal left femoral fracture. 2. Degenerative changes as described. Electronically signed by: Juan Francisco Finn On 12/25/2019 10:37:34 AM DD: JUAN FRANCISCO FINN MD 12/25/19 1016 DT: MACARENA 12/25/19 1037 DS: SERGIO 12/25/19 1037 [~ rep ct labl] PROGNOSIS: Fair ACTIVITY: [As tolerated]. DIET: cardiac DISPOSITION: 62 D/T Rehab Facility. ITEMS TO FOLLOWUP ON ON OUTPATIENT: f/u with orthopedic team DISCHARGE CONDITION: [Stable]. TIME SPENT ON DISCHARGE: Greater than 20 minutes. Vital Signs/I&Os Vital Signs Date Time Temp Pulse Resp B/P (MAP) Pulse Ox O2 Delivery O2 Flow Rate FiO2 12/27/19 15:10 98.9 12/27/19 14:00 93 17 124/70 (88) 94 Nasal Cannula 1.0 I&O- Last 24 Hours up to 6 AM 12/27/19 06:00 Intake Total 1010 ml Output Total 300 ml Balance 710 ml Laboratory Data CBC/BMP Laboratory Tests 12/26/19 19:02 12/27/19 01:47 12/27/19 08:12 Microbiology Microbiology 12/25/19 Respiratory Virus Panel (PCR) (CHANTE) - Final, Complete Discharge Medications Scheduled Amlodipine Besylate (Amlodipine Besylate) 10 Mg Tab, 10 MG PO DAILY, (Reported) Aspirin (Aspir 81) 81 Mg Tablet.dr, 81 MG PO DAILY, (Reported) Carbamazepine (Carbamazepine) 200 Mg Tab, 200 MG PO DAILY, (Reported) Ergocalciferol (Vitamin D2) (Vitamin D2) 50,000 Units Cap, 50,000 UNITS PO QWEEK, (Reported) FRIDAYS Multivitamins (Thera M Plus Tablet) 1 Each Tablet, 1 TAB PO QHS, (Reported) Omeprazole (Omeprazole) 40 Mg Cap, 40 MG PO DAILY, (Reported) Rivaroxaban (Xarelto) 10 Mg Tablet, 10 MG PO DAILY@18 Valsartan/Hydrochlorothiazide (Valsartan-Hctz 160-12.5 mg Tab) 1 Tab Tab, 1 TAB PO DAILY, (Reported) Scheduled PRN Acetaminophen (Acetaminophen) 325 Mg Tablet, 650 MG PO Q4H PRN for PAIN, (Reported) Ibuprofen (Ibuprofen) 600 Mg Tablet, 600 MG PO Q8H PRN for PAIN, (Reported) Allergies Coded Allergies: Penicillins (Verified Allergy, Severe, TONGUE SWELLING, DIZINESS, 12/25/19) Quinolones (Verified Allergy, Severe, TONGUE SWELLING,DIZINESS, 12/25/19) codeine (Verified Adverse Reaction, Mild, N/V, 12/25/19) oxycodone (Verified Adverse Reaction, Mild, "KNOCKED OUT", 12/25/19) RODRIGUEZ GARCIA DO Dec 27, 2019 16:41
--- NOTE | 2019-12-29 09:48 | ECGEPIP ---
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
--- NOTE | 2020-01-07 14:01 | RO ---
DATE OF OPERATION: PREOPERATIVE DIAGNOSIS: Left hip intertrochanteric fracture. POSTOPERATIVE DIAGNOSIS: Left hip intertrochanteric fracture. PLANNED PROCEDURE: Left hip open reduction and internal fixation (TFN-A Synthes). PROCEDURE PERFORMED: Left hip open reduction and internal fixation (TFN-A Synthes). SURGEON: Dr. Fernando Garcia ASSIST: Dr. Susan Esteban TYPE OF ANESTHETIC: Spinal anesthetic. OPERATIVE PREAMBLE: This 84-year-old female had a mechanical fall. She sustained a left comminuted intertrochanteric hip fracture. We talked about the pros and cons, risks and benefits of going ahead with left hip intramedullary nailing. Surgical risks were discussed with her as well as Kristen, her next-of-kin and her grandson. These ere reiterated in preoperative holding and the left lower extremity was marked and we proceeded to surgery after ensuring that an echocardiogram simply showed aortic sclerosis rather than aortic stenosis. OPERATIVE REPORT: The patient was brought to the operating theater. She was administered 600 mg IV Clindamycin due to Penicillin allergy. She was administered 2 gm tranexamic acid. Spinal anesthetic was placed by anesthesia team. The patient was placed in the traction setup with left leg in traction and internal rotation, the right leg scissoring down attached to the mid post of the bed and peroneal nerve appropriately padded. Bear hugger was used; right arm was positioned across the body on the left side. Left lower extremity was prepped and draped in usual sterile fashion with Chlorhexidine based prep solution, allowed to thoroughly dry for 3 minutes prior to application of iodine based prep shower curtain style drape. Preoperative time out was performed confirming site, patient and surgery. I began by making a small incision centered 3 fingersbreadth proximal to the level of the greater trochanter. I carried the dissection down through skin and subcutaneous tissue, achieving meticulous hemostasis. I then inserted the 3.2 mm partially threaded guidewire at the greater trochanter aiming to the lesser trochanter on both AP and lateral radiographs. I used the entry reamer with soft tissue protecting device. I then inserted the ball-tip guidewire down from appropriate lengths centered on both AP and lateral radiographs distally. This measured 340 mm and as such this was the length of the nail that was chosen. I used the radiopaque guide; this neck-shaft angle appeared to be 125 degrees appropriate. I reamed down to 12.5 and inserted the 340 mm long 125 degree neck shaft angle, Synthes TFN-8 implant, size 11 mm in diameter. In inserted this to appropriate depth. This slightly now reduced the fracture. As such I made an accessory percutaneous incision using bone hook to fix slight amount of valgus of the fracture site and reduce the fracture. I held this in place. I used a drop down 125 degree guide with percutaneous technique again to insert the 3.2 mm guidewire after removing the ball-tipped guidewire. I inserted this to the center of femoral head and neck on both AP and lateral radiographs to the subchondral bone. This measured 103 mm. The guide was slightly off the bone and as such I downsized by 1 size to 95 reamer and 95 mm helical blade. I impacted this into place and then used gentle compression with the nail system. The nail was locked proximally. The nail compressed nicely. The tip to apex distance I estimated at 20 mm. I removed the drop down guide. I took AP and lateral radiographs to ensure no penetration as well as live fluoroscopy near-far technique to ensure no subchondral penetration of the helical blade. I turned my attention distally. I used perfect grand traverse technique to insert two percutaneous 5.0 mm screws in the oblong hole in the proximal distal locking hole. Final radiographs, AP and lateral radiographs were saved onto the system proximally and distally. The guide was removed. The wounds were thoroughly irrigated with normal saline. The subcutaneous tissue was closed with interrupted 2-0 Vicryl sutures and skin leena. Skin was cleaned with wet-to-dry dressing followed by application of Adaptic, 4 x 8 gauze and cloth tape dressing, ABD pads. The patient was transferred off the operating table and taken to the postanesthesia care unit in stable condition. All sponge, needle, clamps and instrument counts were correct. No complications. Estimated blood loss: 100 cc. Plan for the patient is to be weightbearing as tolerated. She will be under Hospitalist Service. Follow up in the office in two weeks' time to discontinue the leena. She will have OT/PT as soon as possible to ensure safety for mobilization upon discharge home. DVT prophylaxis will be achieved with Xarelto 10 mg PO once daily for the next 35 days starting postoperative day one. Did communicate these findings to Ms. Brayan Broderick and asked to communicate to Kristen as well. BRYANT
--- NOTE | 2020-01-10 12:38 | REP ---
LEFT FEMUR: 5-VIEWS INTRAOPERATIVE IMAGING HISTORY: Left hip fracture. FLUOROSCOPY TIME: Reported at 4 minutes 13 seconds. FINDINGS: A sequence of five [id number] fluoroscopically obtained spot radiographs of the left hip and femur document open reduction internal fixation for intertrochanteric fracture. BRYANT
== END 2019-12-27 15:25 | DRG 481 ==
LOC: EDBD 08:33 → M ED 08:33 → M ED INP 11:00 → M MS5PR 11:40 → M PM&R 12-27 15:10
PROVIDERS: ADMIT Internal Medicine; ATTEND Internal Medicine
PROC: 0QS706Z Reposition Left Upper Femur with Intramedullary Internal Fixation Device, Open Approach (ICD-10-PCS; principal; 2019-12-25 13:54)
PROC: 30233N1 Transfusion of Nonautologous Red Blood Cells into Peripheral Vein, Percutaneous Approach (ICD-10-PCS; 2019-12-26)
DX: S72.142A Displaced intertrochanteric fracture of left femur, initial encounter for closed fracture (principal); D62 Acute posthemorrhagic anemia; I10 Essential (primary) hypertension; K21.9 Gastro-esophageal reflux disease without esophagitis; E78.5 Hyperlipidemia, unspecified; E55.9 Vitamin D deficiency, unspecified; G50.0 Trigeminal neuralgia; I35.0 Nonrheumatic aortic (valve) stenosis; W18.30XA Fall on same level, unspecified, initial encounter; Y92.009 Unspecified place in unspecified non-institutional (private) residence as the place of occurrence of the external cause; Z79.899 Other long term (current) drug therapy; Z79.82 Long term (current) use of aspirin; Z88.0 Allergy status to penicillin; Z88.8 Allergy status to other drugs, medicaments and biological substances; Z88.5 Allergy status to narcotic agent

== ENCOUNTER 2019-12-27 12:03 | Inpatient (IN) | payer MEDICARE ==
[~2019-12-27] VITALS: Ht 157.5 cm; Wt 70.5 kg
[~2019-12-27 12:03] MED LIST changes: +ACET1TAB55 PO; +ASPI81TA86 PO; +IBUP1TAB6 PO; +VITA50005 PO; +VITMTA PO
[2019-12-27] MEDS ORDERED: XARE10TA PO (12:08)
[2019-12-27] MEDS ORDERED: traMADol 50 MG TAB PO PRN (12:30)
--- NOTE | 2019-12-27 13:10 | HPEPDOC ---
Research Quality Assurance Specialist Note DATE OF ADMISSION: 12-27-19 DATE OF SERVICE: 12-27-19 TIME OF ADMISSION: Please refer to physician's admission order. SOURCE OF ADMISSION INFORMATION: [facility] record and patient CHIEF COMPLAINT: left hip fracture HISTORY OF PRESENT ILLNESS: 84F pmh OA, HTN, HLD, trigeminal neuralgia, Aortic stenosis, GERD who fell at home without syncopal symptom and presented to [facility] ED on 12-25-19 complaining of pain and difficulty walking. Hip Xray showed, Acute proximal left femoral fracture for which she was evaluated by orthopedics who performed an ORIF on 12-26-19 complicated by post-op anemia requiring 2 prbc blood transfusion. She also had soft BPs requiring IVF and difficulty with pain control. She was evaluated by therapy, found to have significant impairments in mobility and ADLs deemed to be medically appropriate for discharge to ARU on 12-27-19. On initial eval patient reports she has a prolapsed rectum and blader and that she has the urge to urinate often and wants to be able to use the bedpan. She was encouraged to begin working on bedside transfers to a commode in therapy in order improve her safety and efficiency for toileting. REVIEW OF SYSTEMS: The following is a completed review of systems and has been reviewed. Review of systems otherwise unremarkable. PAIN: Patient self reports left hip pain EYES: No recent vision changes EARS, NOSE, & THROAT: No throat pain, or dysphagia, or rhinorrhea CARDIOVASCULAR: Denies chest pain or palpitations PULMONARY: Denies shortness of breath GASTROINTESTINAL: Denies constipation/diarrhea GENITOURINARY: +urinary incontinence (chronic) MUSCULOSKELETAL: left hip fracture NEUROLOGICAL:denies tremor or paresthesias HEMATOLOGICAL: +anemia SKIN: left hip incision PSYCHIATRIC: Unremarkable All other review of systems found to be negative. PAST MEDICAL HISTORY: as per HPI PAST SURGICAL HISTORY: Right TKR ALLERGIES: Please see below. MEDICATIONS: Please see below. SOCIAL HISTORY:No etoh/illicit drugs/smoking DIET: low sodium PHYSICAL EXAMINATION: VITAL SIGNS: Please see below. GENERAL: Pleasant and cooperative. No acute distress. HEENT: PERRL. Extraocular movements intact. Clear conjunctiva CARDIOVASCULAR: Regular rate and rhythm. No murmurs, rubs, or gallops LUNGS: Clear to auscultation bilaterally. No wheezes. No rhonchi ABDOMEN: Soft, nontender, nondistended. Positive bowel sounds. Normal active bowel sounds NEUROLOGICAL: Alert and oriented times three. Cranial nerves II through XII grossly intact. Sensation grossly intact including 1st web space left foot EXTREMITIES: 5\\5 strength bilateral upper extremities. 5\\5 strength right lower extremity. 5/5 strength in left ankle DF/EHL/PF (limited due to surgery) (-) Mane's SKIN: left hip incision with mild swelling/erythema, no induration, scant serous drainage LABORATORY DATA: Please see below. IMAGING:Imaging documentation personally reviewed by record. FUNCTIONAL STATUS: Premorbid: Mod-Independent with all activities of daily life as well as mobility with RW On Admission: Min-Mod assist for functional mobility, ambulation, dressing, toileting GOALS: Mod-I for ambulation community distances, dressing, toileting, functional transfers ASSESSMENT:84-year-old F with past medical history of htn and aortic stenosis who presents status post left hip fracture PLAN: 1. Rehab- PT/OT advance agit and ADLs, strengthen/stretch/maintain ROM all 4 limbs 2. Cardiac- hx of aortic stenosis and HTN, will c/u to hold home Valsartan-HCTZ due to recent soft BPs, c/u Amlodipine and ASA -medicine consulted to assist in overall management 3. Ortho- s/p let hip fracture with ORIF, ortho consulted, WBAT 4. Resp- encourage incentive spirometry, monitor for infection 5. Neuro- hx of trigeminal neural c/u Tegretol 6. Heme- s/p 2 units prbc for post-op anemia, will c/u to monitor and transfuse if Hgb <8 or if becomes symptomatic 7. Pain- Tylenol and tramadol, gabapentin 200mg qHS 8. GI ppx- omeprazole 9. DVT ppx- Xarelto 10. - monitor PVRs, will consider bladder relaxant to help relieve incontinence 11. Dispo- TBD POST ADMISSION PHYSICIAN EVALUATION: Medical and functional status: Description of medical status, medical assessment: As above. Rehabilitation diagnosis and current and prior cold morbid medical conditions as above. Risk of complications and plans to mitigate them as above. Description of functional status current status is as above. Prior status as above. Status compared to preadmission: There are no clinically significant differences between the patient's current status and the information described on the preadmission screening document. Treatment plan anticipated: Treatment plan is as described above. Required disciplines including physical therapy, occupational therapy, others as noted above. Intensity of services: 3 hours a day, 6 days a week. Special considerations: There are no specific special or safety considerations that would likely preclude immediate implementation of an intensive rehabilitation program or subsequently influence the plan of care. ATTESTATION: Considering all the information above, it is my best judgment that this patient requires intensive rehabilitation therapy as described above and an inpatient hospital environment due to the complexity of nursing, medical, and rehabilitation needs required by the patient. Furthermore, this patient can reasonably be expected to participate in an benefit from an inpatient rehabilitation stay with an interdisciplinary team approach to the delivery of rehabilitation care under the direction and supervision of rehabilitation physician. PROGNOSIS: Excellent ESTIMATED LENGTH OF STAY:12-14 days. PROJECTED DISCHARGE DESTINATION: Home with family support and any durable medical equipment required to increase functional safety and mobility. TIME SPENT COUNSELING AND COORDINATING INITIAL CARE: Greater than 70 minutes. Vital Signs Vital Signs Date Time Temp Pulse Resp B/P (MAP) Pulse Ox O2 Delivery O2 Flow Rate FiO2 12/27/19 15:15 99.0 88 20 130/61 (84) 91 Room Air 1.0 Home Medications Scheduled Amlodipine Besylate (Amlodipine Besylate) 10 Mg Tab, 10 MG PO DAILY, (Reported) Aspirin (Aspir 81) 81 Mg Tablet.dr, 81 MG PO DAILY, (Reported) Carbamazepine (Carbamazepine) 200 Mg Tab, 200 MG PO DAILY, (Reported) Ergocalciferol (Vitamin D2) (Vitamin D2) 50,000 Units Cap, 50,000 UNITS PO QWEEK, (Reported) FRIDAYS Multivitamins (Thera M Plus Tablet) 1 Each Tablet, 1 TAB PO QHS, (Reported) Omeprazole (Omeprazole) 40 Mg Cap, 40 MG PO DAILY, (Reported) Rivaroxaban (Xarelto) 10 Mg Tablet, 10 MG PO DAILY@18 Valsartan/Hydrochlorothiazide (Valsartan-Hctz 160-12.5 mg Tab) 1 Tab Tab, 1 TAB PO DAILY, (Reported) Scheduled PRN Acetaminophen (Acetaminophen) 325 Mg Tablet, 650 MG PO Q4H PRN for PAIN, (Reported) Ibuprofen (Ibuprofen) 600 Mg Tablet, 600 MG PO Q8H PRN for PAIN, (Reported) Allergies Coded Allergies: Penicillins (Verified Allergy, Severe, TONGUE SWELLING, DIZINESS, 12/25/19) Quinolones (Verified Allergy, Severe, TONGUE SWELLING,DIZINESS, 12/25/19) codeine (Verified Adverse Reaction, Mild, N/V, 12/25/19) oxycodone (Verified Adverse Reaction, Mild, "KNOCKED OUT", 12/25/19) A-FIB/CHADSVASC A-FIB History Current/History of A-Fib/PAF?: No DESIRAE BRUCE MD Dec 27, 2019 13:10
[2019-12-27 15:15] VITALS: BP 130/61
[2019-12-27] MEDS: REMEDY PHYTOPLEX Z-GUARD PASTE 113GM TUBE (FROM STOREROOM PRODUCT) TOP SCH ×2 (16:00→19:51)
[2019-12-27] MEDS: POLYVINYL ALCOHOL OPHTH SOLN 15 ML(LIQUITEARS) OU SCH ×2 (17:00→20:02)
[2019-12-27] MEDS: RIVAROXABAN 10 MG TAB (XARELTO) PO SCH (18:15)
[2019-12-27] MEDS: SENNA 8.6 MG TAB (SENOKOT) PO SCH (19:51)
[2019-12-27] MEDS: FERROUS GLUCONATE 324 MG TAB PO SCH (19:52)
[2019-12-27 20:00] VITALS: BP 140/66
[2019-12-27] MEDS: DOCUSATE SODIUM 100 MG CAP PO SCH (20:01)
[2019-12-27] MEDS: ACETAMINOPHEN 500 MG TAB PO SCH (20:02)
[2019-12-27] MEDS: ONDANSETRON 4 MG ORAL DISINTEGRATING TAB PO PRN (20:38)
[2019-12-27] MEDS ORDERED: GABAPENTIN 100 MG CAP PO SCH (21:00)
[2019-12-28 06:00] VITALS: BP 138/63
[2019-12-28 07:00] LABS: BASO # 0.1 10^3/uL (0.0-0.2); BASO % 0.4 % (0.0-1.0); EOS # 0.3 10^3/uL (0.0-0.5); EOS % 2.9 % (0.0-3.0); HEMATOCRIT 28.4 % (36.0-47.0); HEMOGLOBIN 8.8 g/dl (12.0-15.5); LYMPH # 1.1 10^3/uL (1.5-5.0); LYMPH % 9.1 % (24.0-44.0); MEAN CORPUSCULAR HEMOGLOBIN 22.7 pg (27.0-33.0); MEAN CORPUSCULAR VOLUME 73.4 fl (80.0-96.0); MONO # 1.2 10^3/uL (0.0-0.8); MONO % 9.9 % (0.0-5.0); NEUTROPHILS % 77.4 % (36.0-66.0); PLATELET COUNT, AUTOMATED 188 10^3/uL (150-450); RED BLOOD COUNT 3.87 10^6/uL (4.00-5.40); WHITE BLOOD COUNT 11.6 10^3/uL (4.0-10.0)
[2019-12-28 07:25] LABS: ALT/SGPT 14 U/L (12-78); BILIRUBIN,TOTAL 0.8 MG/DL (0.2-1.0); BLOOD UREA NITROGEN 20 MG/DL (7-18); CALCIUM LEVEL 8.4 MG/DL (8.8-10.2); CARBON DIOXIDE LEVEL 30 MEQ/L (21-32); CHLORIDE LEVEL 105 MEQ/L (98-107); CREATININE FOR GFR 0.55 MG/DL (0.55-1.30); GLOMERULAR FILTRATION RATE > 60.0 (>32); GLUCOSE, FASTING 95 MG/DL (70-100); POTASSIUM SERUM 4.2 MEQ/L (3.5-5.1); SODIUM LEVEL 137 MEQ/L (136-145)
[2019-12-28] MEDS: ACETAMINOPHEN 500 MG TAB PO SCH ×3 (07:47→20:35)
[2019-12-28] MEDS: OMEPRAZOLE 20 MG CAP PO SCH (07:47)
[2019-12-28] MEDS: ASPIRIN 81 MG ENTERIC TAB PO SCH (07:47)
[2019-12-28] MEDS: POLYVINYL ALCOHOL OPHTH SOLN 15 ML(LIQUITEARS) OU SCH ×4 (07:48→20:37)
[2019-12-28] MEDS: carBAMazepine 200 MG TAB PO SCH (07:48)
[2019-12-28] MEDS: DOCUSATE SODIUM 100 MG CAP PO SCH ×2 (07:48→20:34)
[2019-12-28] MEDS: REMEDY PHYTOPLEX Z-GUARD PASTE 113GM TUBE (FROM STOREROOM PRODUCT) TOP SCH ×3 (07:48→20:38)
[2019-12-28] MEDS: MULTIVITAMINS/MINERALS THERAP 1 TAB PO SCH (07:48)
[2019-12-28] MEDS: FERROUS GLUCONATE 324 MG TAB PO SCH ×2 (07:49→20:35)
[2019-12-28] MEDS ORDERED: amLODIPine 5 MG TAB PO SCH (09:00)
[2019-12-28] MEDS ORDERED: amLODIPine 10 MG TAB PO SCH (09:00)
--- NOTE | 2019-12-28 11:07 | IPNPDOC ---
PM&R Progress Note DATE OF SERVICE: Dec 28, 2019 Physician/Ophthalmologist Progress Note Subjective: Patient reporting she feels well today and is interested in trying the nerve pain medication during the day to to help with her overall pain. 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 SHe reports she does not feel short of breath and that she has had low oxygen levels for years and has been worked up by her PMD. REVIEW OF SYSTEMS: The following is a completed review of systems and has been reviewed. Review of systems otherwise unremarkable. PAIN: Patient self reports left hip pain EYES: No recent vision changes EARS, NOSE, & THROAT: No throat pain, or dysphagia, or rhinorrhea CARDIOVASCULAR: Denies chest pain or palpitations PULMONARY: Denies shortness of breath GASTROINTESTINAL: Denies constipation/diarrhea GENITOURINARY: +urinary incontinence (chronic) MUSCULOSKELETAL: left hip fracture NEUROLOGICAL:denies tremor or paresthesias HEMATOLOGICAL: +anemia SKIN: left hip incision PSYCHIATRIC: Unremarkable All other review of systems found to be negative. PHYSICAL EXAMINATION: VITAL SIGNS: Please see below. GENERAL: Pleasant and cooperative. No acute distress. HEENT: PERRL. Extraocular movements intact. Clear conjunctiva CARDIOVASCULAR: Regular rate and rhythm. No murmurs, rubs, or gallops LUNGS: Clear to auscultation bilaterally. No wheezes. No rhonchi ABDOMEN: Soft, nontender, nondistended. Positive bowel sounds. Normal active bowel sounds NEUROLOGICAL: Alert and oriented times three. Cranial nerves II through XII grossly intact. Sensation grossly intact including 1st web space left foot EXTREMITIES: 5\\5 strength bilateral upper extremities. 5\\5 strength right lower extremity. 5/5 strength in left ankle DF/EHL/PF (limited due to surgery) (-) Mane's SKIN: left hip incision with mild swelling/erythema, no induration, scant serous drainage ASSESSMENT:84-year-old F with past medical history of htn and aortic stenosis who presents status post left hip fracture PLAN: 1. Rehab- PT/OT advance agit and ADLs, strengthen/stretch/maintain ROM all 4 limbs 2. Cardiac- hx of aortic stenosis and HTN, will c/u to hold home Valsartan-HCTZ due to recent soft BPs, c/u Amlodipine and ASA -medicine consulted to assist in overall management 3. Ortho- s/p let hip fracture with ORIF, ortho consulted, WBAT 4. Resp- encourage incentive spirometry, monitor for infection 5. Neuro- hx of trigeminal neural c/u Tegretol 6. Heme- s/p 2 units prbc for post-op anemia, will c/u to monitor and transfuse if Hgb <8 or if becomes symptomatic 7. Pain- Tylenol and tramadol, gabapentin 200mg TID 8. GI ppx- omeprazole 9. DVT ppx- Xarelto -Dopplers negative 10. - monitor PVRs, will consider bladder relaxant to help relieve incontinence 11. Dispo- TBD Allergies Coded Allergies: Penicillins (Verified Allergy, Severe, TONGUE SWELLING, DIZINESS, 12/25/19) Quinolones (Verified Allergy, Severe, TONGUE SWELLING,DIZINESS, 12/25/19) codeine (Verified Adverse Reaction, Mild, N/V, 12/25/19) oxycodone (Verified Adverse Reaction, Mild, "KNOCKED OUT", 12/25/19) Vital Signs Vital Signs Date Time Temp Pulse Resp B/P (MAP) Pulse Ox O2 Delivery O2 Flow Rate FiO2 12/28/19 08:00 1.0 12/28/19 07:47 91 138/63 12/28/19 06:00 98.6 18 93 Room Air Laboratory Data CBC/BMP Laboratory Tests 12/28/19 06:22 Labs 24H Laboratory Tests 2 12/28/19 06:22: Immature Granulocyte % (Auto) 0.3, Neutrophils (%) (Auto) 77.4H, Lymphocytes (%) (Auto) 9.1L, Monocytes (%) (Auto) 9.9H, Eosinophils (%) (Auto) 2.9, Basophils (%) (Auto) 0.4, Neutrophils # (Auto) 9.0H, Lymphocytes # (Auto) 1.1L, Monocytes # (Auto) 1.2H, Eosinophils # (Auto) 0.3, Basophils # (Auto) 0.1, Nucleated Red Blood Cells % (auto) 0.3H, Anion Gap 2L, Glomerular Filtration Rate > 60.0, Calcium Level 8.4L, Total Bilirubin 0.8, Aspartate Amino Transf (AST/SGOT) 23, Alanine Aminotransferase (ALT/SGPT) 14, Alkaline Phosphatase 63, Total Protein 6.0L, Albumin 2.0L, Albumin/Globulin Ratio 0.5L Current Medications Current Medications Current Medications Medications (Trade) Dose Ordered Sig/Kareem Route PRN Reason Start Time Stop Time Status Last Admin Dose Admin Acetaminophen (Tylenol Tab) 1,000 mg TID PO 12/27/19 21:00 12/28/19 07:47 Amlodipine Besylate (Norvasc) 5 mg DAILY PO 12/28/19 09:00 12/28/19 07:47 Amlodipine Besylate (Norvasc) 10 mg DAILY PO 12/28/19 09:00 12/27/19 16:45 DC Artificial Tears (Akwa Tears) 2 drop QID OU 12/27/19 17:00 12/28/19 07:48 Aspirin (Ecotrin) 81 mg DAILY PO 12/28/19 09:00 12/28/19 07:47 Carbamazepine (TEGretol) 200 mg DAILY PO 12/28/19 09:00 12/28/19 07:48 Docusate Sodium (Colace) 100 mg BID PO 12/27/19 21:00 12/28/19 07:48 Ferrous Gluconate (Fergon) 324 mg BID PO 12/27/19 21:00 Gabapentin (Neurontin) 200 mg QHS PO 12/27/19 21:00 12/27/19 20:02 Multivitamins (Theragram-M) 1 tab DAILY PO 12/28/19 09:00 12/28/19 07:48 Omeprazole (PriLOSEC) 40 mg DAILY PO 12/28/19 09:00 12/28/19 07:47 Ondansetron HCl (Zofran Odt) 4 mg Q6HP PRN PO NAUSEA OR VOMITING 12/27/19 20:30 12/27/19 20:38 Rivaroxaban (Xarelto) 10 mg DAILY@1800 PO 12/27/19 18:00 12/27/19 18:15 Senna (Senokot) 1 tab QHS PO 12/27/19 21:00 Tramadol HCl (Ultram) 50 mg Q4HP PRN PO MODERATE PAIN (PS 5-7) 12/27/19 12:30 DESIRAE BRUCE MD Dec 28, 2019 11:07
--- NOTE | 2019-12-28 11:51 | REPVR ---
PROCEDURE INFORMATION: Exam: US Duplex Lower Extremity Veins, Bilateral Exam date and time: 12/28/2019 11:32 AM Age: 84 years old Clinical indication: Screening exam; Immobility, R/O dct; Prior surgery; Surgery date: 3-7 days post-operative; Surgery type: Left hip surgery; Additional info: R/O dvt, immobility TECHNIQUE: Imaging protocol: Real-time duplex ultrasound of the extremities with 2-D talbot scale, color Doppler flow and spectral waveform analysis with image documentation. Complete exam focused on the bilateral lower extremity veins. COMPARISON: No relevant prior studies available. FINDINGS: Right deep veins: The right common femoral, femoral, proximal profunda femoral and popliteal veins are patent without thrombus. Normal Doppler waveforms. Normal compressibility and/or augmentation response. Right superficial veins: Saphenofemoral junction is patent without thrombus. Left deep veins: The left common femoral, femoral, proximal profunda femoral and popliteal veins are patent without thrombus. Normal Doppler waveforms. Normal compressibility and/or augmentation response. Left superficial veins: Saphenofemoral junction is patent without thrombus. Soft tissues: Unremarkable. IMPRESSION: No evidence of deep vein thrombosis. Electronically signed by: Sami Mitchell On 12/28/2019 11:50:53 AM
[2019-12-28] MEDS: IPRATROPIUM 0.5MG/ALBUTEROL 2.5MG INH SOL UD 3ML (DUONEB) NEB SCH ×2 (13:17→20:44)
[2019-12-28] MEDS: GABAPENTIN 100 MG CAP PO SCH ×2 (13:57→20:36)
[2019-12-28 14:00] VITALS: BP 133/61
[2019-12-28] MEDS: traMADol 50 MG TAB PO SCH (16:06)
[2019-12-28] MEDS: RIVAROXABAN 10 MG TAB (XARELTO) PO SCH (17:07)
[2019-12-28 20:00] VITALS: BP 121/59
[2019-12-28] MEDS: SENNA 8.6 MG TAB (SENOKOT) PO SCH (20:34)
[2019-12-28] MEDS: ONDANSETRON 4 MG ORAL DISINTEGRATING TAB PO PRN (20:54)
[2019-12-29 06:31] VITALS: BP 150/68
[2019-12-29] MEDS: IPRATROPIUM 0.5MG/ALBUTEROL 2.5MG INH SOL UD 3ML (DUONEB) NEB SCH ×3 (07:27→19:36)
[2019-12-29] MEDS: GABAPENTIN 100 MG CAP PO SCH ×3 (08:14→20:05)
[2019-12-29] MEDS: traMADol 50 MG TAB PO SCH ×3 (08:14→16:54)
[2019-12-29] MEDS: carBAMazepine 200 MG TAB PO SCH (08:15)
[2019-12-29] MEDS: OMEPRAZOLE 20 MG CAP PO SCH (08:15)
[2019-12-29] MEDS: ACETAMINOPHEN 500 MG TAB PO SCH ×3 (08:15→20:05)
[2019-12-29] MEDS: amLODIPine 10 MG TAB PO SCH (08:15)
[2019-12-29] MEDS: ASPIRIN 81 MG ENTERIC TAB PO SCH (08:15)
[2019-12-29] MEDS: DOCUSATE SODIUM 100 MG CAP PO SCH ×2 (08:15→20:06)
[2019-12-29] MEDS: POLYVINYL ALCOHOL OPHTH SOLN 15 ML(LIQUITEARS) OU SCH ×4 (08:16→20:06)
[2019-12-29] MEDS: MULTIVITAMINS/MINERALS THERAP 1 TAB PO SCH (08:16)
[2019-12-29] MEDS: REMEDY PHYTOPLEX Z-GUARD PASTE 113GM TUBE (FROM STOREROOM PRODUCT) TOP SCH ×3 (08:16→20:06)
[2019-12-29] MEDS: FERROUS GLUCONATE 324 MG TAB PO SCH ×2 (08:16→20:38)
[2019-12-29 08:34] LABS: BASO # 0.1 10^3/uL (0.0-0.2); BASO % 0.5 % (0.0-1.0); EOS # 0.4 10^3/uL (0.0-0.5); EOS % 3.7 % (0.0-3.0); HEMATOCRIT 26.3 % (36.0-47.0); HEMOGLOBIN 8.1 g/dl (12.0-15.5); LYMPH # 0.8 10^3/uL (1.5-5.0); LYMPH % 7.7 % (24.0-44.0); MEAN CORPUSCULAR HEMOGLOBIN 23.1 pg (27.0-33.0); MEAN CORPUSCULAR HGB CONC 30.8 g/dl (32.0-36.5); MEAN CORPUSCULAR VOLUME 74.9 fl (80.0-96.0); MONO # 0.9 10^3/uL (0.0-0.8); MONO % 8.3 % (0.0-5.0); NEUTROPHILS # 8.2 10^3/uL (1.5-8.5); NEUTROPHILS % 79.3 % (36.0-66.0); PLATELET COUNT, AUTOMATED 187 10^3/uL (150-450); RED BLOOD COUNT 3.51 10^6/uL (4.00-5.40); WHITE BLOOD COUNT 10.3 10^3/uL (4.0-10.0)
[2019-12-29 08:50] LABS: BLOOD UREA NITROGEN 26 MG/DL (7-18); CALCIUM LEVEL 8.2 MG/DL (8.8-10.2); CARBON DIOXIDE LEVEL 31 MEQ/L (21-32); CHLORIDE LEVEL 105 MEQ/L (98-107); CREATININE FOR GFR 0.73 MG/DL (0.55-1.30); GLOMERULAR FILTRATION RATE > 60.0 (>32); GLUCOSE, FASTING 135 MG/DL (70-100); SODIUM LEVEL 140 MEQ/L (136-145)
[2019-12-29 14:00] VITALS: BP 126/58
[2019-12-29] MEDS: RIVAROXABAN 10 MG TAB (XARELTO) PO SCH (16:54)
[2019-12-29] MEDS: ONDANSETRON 4 MG ORAL DISINTEGRATING TAB PO PRN (20:06)
[2019-12-29] MEDS: SENNA 8.6 MG TAB (SENOKOT) PO SCH (20:38)
[2019-12-29 21:14] VITALS: BP 149/65
[2019-12-30 05:41] VITALS: BP 139/64
[2019-12-30] MEDS: IPRATROPIUM 0.5MG/ALBUTEROL 2.5MG INH SOL UD 3ML (DUONEB) NEB SCH ×3 (07:44→18:02)
[2019-12-30] MEDS: DOCUSATE SODIUM 100 MG CAP PO SCH ×2 (08:09→21:54)
[2019-12-30] MEDS: ASPIRIN 81 MG ENTERIC TAB PO SCH (08:10)
[2019-12-30] MEDS: GABAPENTIN 100 MG CAP PO SCH ×3 (08:10→21:54)
[2019-12-30] MEDS: amLODIPine 10 MG TAB PO SCH (08:10)
[2019-12-30] MEDS: traMADol 50 MG TAB PO SCH ×4 (08:10→21:57)
[2019-12-30] MEDS: OMEPRAZOLE 20 MG CAP PO SCH (08:10)
[2019-12-30] MEDS: ACETAMINOPHEN 500 MG TAB PO SCH ×3 (08:10→21:58)
[2019-12-30] MEDS: POLYVINYL ALCOHOL OPHTH SOLN 15 ML(LIQUITEARS) OU SCH ×4 (08:11→21:58)
[2019-12-30] MEDS: MULTIVITAMINS/MINERALS THERAP 1 TAB PO SCH (08:11)
[2019-12-30] MEDS: FERROUS GLUCONATE 324 MG TAB PO SCH ×2 (08:11→21:00)
[2019-12-30] MEDS: REMEDY PHYTOPLEX Z-GUARD PASTE 113GM TUBE (FROM STOREROOM PRODUCT) TOP SCH ×3 (08:11→21:00)
[2019-12-30] MEDS: carBAMazepine 200 MG TAB PO SCH (08:11)
[2019-12-30 14:00] VITALS: BP 112/56
[2019-12-30] MEDS: RIVAROXABAN 10 MG TAB (XARELTO) PO SCH (17:19)
[2019-12-30 19:50] VITALS: BP 122/58
[2019-12-30] MEDS: SENNA 8.6 MG TAB (SENOKOT) PO SCH (21:54)
[2019-12-31 06:00] VITALS: BP 129/58
[2019-12-31 07:07] LABS: BASO # 0.1 10^3/uL (0.0-0.2); BASO % 0.6 % (0.0-1.0); EOS # 0.6 10^3/uL (0.0-0.5); EOS % 6.6 % (0.0-3.0); HEMATOCRIT 26.2 % (36.0-47.0); HEMOGLOBIN 8.3 g/dl (12.0-15.5); LYMPH % 11.2 % (24.0-44.0); MEAN CORPUSCULAR HEMOGLOBIN 23.3 pg (27.0-33.0); MEAN CORPUSCULAR HGB CONC 31.7 g/dl (32.0-36.5); MEAN CORPUSCULAR VOLUME 73.6 fl (80.0-96.0); MONO # 0.9 10^3/uL (0.0-0.8); MONO % 10.7 % (0.0-5.0); NEUTROPHILS # 6.1 10^3/uL (1.5-8.5); NEUTROPHILS % 70.2 % (36.0-66.0); PLATELET COUNT, AUTOMATED 239 10^3/uL (150-450); RED BLOOD COUNT 3.56 10^6/uL (4.00-5.40); WHITE BLOOD COUNT 8.6 10^3/uL (4.0-10.0)
[2019-12-31] MEDS: traMADol 50 MG TAB PO SCH ×2 (07:20→18:16)
[2019-12-31 07:37] LABS: BLOOD UREA NITROGEN 31 MG/DL (7-18); CARBON DIOXIDE LEVEL 31 MEQ/L (21-32); CHLORIDE LEVEL 107 MEQ/L (98-107); CREATININE FOR GFR 0.61 MG/DL (0.55-1.30); GLOMERULAR FILTRATION RATE > 60.0 (>32); GLUCOSE, FASTING 102 MG/DL (70-100); SODIUM LEVEL 141 MEQ/L (136-145)
[2019-12-31] MEDS: carBAMazepine 200 MG TAB PO SCH (07:45)
[2019-12-31] MEDS: ASPIRIN 81 MG ENTERIC TAB PO SCH (07:45)
[2019-12-31] MEDS: DOCUSATE SODIUM 100 MG CAP PO SCH ×2 (07:45→21:53)
[2019-12-31] MEDS: ACETAMINOPHEN 500 MG TAB PO SCH ×3 (07:46→21:54)
[2019-12-31] MEDS: OMEPRAZOLE 20 MG CAP PO SCH (07:46)
[2019-12-31] MEDS: amLODIPine 10 MG TAB PO SCH (07:46)
[2019-12-31] MEDS: FERROUS GLUCONATE 324 MG TAB PO SCH (07:47)
[2019-12-31] MEDS: GABAPENTIN 100 MG CAP PO SCH (07:47)
[2019-12-31] MEDS: POLYVINYL ALCOHOL OPHTH SOLN 15 ML(LIQUITEARS) OU SCH ×4 (07:47→21:56)
[2019-12-31] MEDS: MULTIVITAMINS/MINERALS THERAP 1 TAB PO SCH (07:47)
[2019-12-31] MEDS: REMEDY PHYTOPLEX Z-GUARD PASTE 113GM TUBE (FROM STOREROOM PRODUCT) TOP SCH ×3 (07:48→21:00)
[2019-12-31] MEDS: IPRATROPIUM 0.5MG/ALBUTEROL 2.5MG INH SOL UD 3ML (DUONEB) NEB SCH (08:00)
[2019-12-31] MEDS ORDERED: traMADol 50 MG TAB PO PRN ×2 (11:00→13:30)
--- NOTE | 2019-12-31 11:01 | IPNPDOC ---
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 REVIEW OF SYSTEMS: The following is a completed review of systems and has been reviewed. Review of systems otherwise unremarkable. PAIN: Patient self reports left hip pain EYES: No recent vision changes EARS, NOSE, & THROAT: No throat pain, or dysphagia, or rhinorrhea CARDIOVASCULAR: Denies chest pain or palpitations PULMONARY: Denies shortness of breath GASTROINTESTINAL: Denies constipation/diarrhea GENITOURINARY: +urinary incontinence (chronic) MUSCULOSKELETAL: left hip fracture NEUROLOGICAL:denies tremor or paresthesias HEMATOLOGICAL: +anemia SKIN: left hip incision PSYCHIATRIC: Unremarkable All other review of systems found to be negative. PHYSICAL EXAMINATION: VITAL SIGNS: Please see below. GENERAL: Pleasant and cooperative. No acute distress. HEENT: PERRL. Extraocular movements intact. Clear conjunctiva CARDIOVASCULAR: Regular rate and rhythm. No murmurs, rubs, or gallops LUNGS: Clear to auscultation bilaterally. No wheezes. No rhonchi ABDOMEN: Soft, nontender, nondistended. Positive bowel sounds. Normal active bowel sounds NEUROLOGICAL: Alert and oriented times three. Cranial nerves II through XII gr ossly intact. Sensation grossly intact including 1st web space left foot EXTREMITIES: 5\\5 strength bilateral upper extremities. 5\\5 strength right lower extremity. 5/5 strength in left ankle DF/EHL/PF (limited due to surgery) (-) Mane's SKIN: left hip incision with mild swelling/erythema, no induration, scant serous drainage ASSESSMENT:84-year-old F with past medical history of htn and aortic stenosis who presents status post left hip fracture PLAN: 1. Rehab- PT/OT advance agit and ADLs, strengthen/stretch/maintain ROM all 4 limbs, ambulating with RW 2. Cardiac- hx of aortic stenosis and HTN, will c/u to hold home Valsartan-HCTZ due to recent soft BPs, c/u Amlodipine and ASA -medicine consulted to assist in overall management 3. Ortho- s/p let hip fracture with ORIF, ortho consulted, WBAT 4. Resp- encourage incentive spirometry, monitor for infection -patient does not feel DUonebs are helpful and would like to discontinue breathing treatments, she states she does not feel more short of breath than usual. 5. Neuro- hx of trigeminal neural c/u Tegretol 6. Heme- s/p 2 units prbc for post-op anemia, will c/u to monitor and transfuse if Hgb <8 or if becomes symptomatic 7. Pain- Tylenol and tramadol, will increase daytime gabapentin dosing to 300mg BID and evening dose to 600mg- additional prn tramadol dosing ordered as well 8. GI ppx- omeprazole 9. DVT ppx- Xarelto -Dopplers negative 10. - voiding well with some chronic incontinence will consider bladder relaxant to help relieve incontinence at later date 11. Dispo- TBD Allergies Coded Allergies: Penicillins (Verified Allergy, Severe, TONGUE SWELLING, DIZINESS, 12/25/19) Quinolones (Verified Allergy, Severe, TONGUE SWELLING,DIZINESS, 12/25/19) codeine (Verified Adverse Reaction, Mild, N/V, 12/25/19) oxycodone (Verified Adverse Reaction, Mild, "KNOCKED OUT", 12/25/19) Vital Signs Vital Signs Date Time Temp Pulse Resp B/P (MAP) Pulse Ox O2 Delivery O2 Flow Rate FiO2 12/31/19 08:43 1.0 12/31/19 07:46 75 129/58 12/31/19 07:20 20 Nasal Cannula 12/31/19 06:00 97.8 97 Laboratory Data CBC/BMP Laboratory Tests 12/31/19 06:50 Labs 24H Laboratory Tests 2 12/31/19 06:50: Immature Granulocyte % (Auto) 0.7, Neutrophils (%) (Auto) 70.2H, Lymphocytes (%) (Auto) 11.2L, Monocytes (%) (Auto) 10.7H, Eosinophils (%) (Auto) 6.6H, Basophils (%) (Auto) 0.6, Neutrophils # (Auto) 6.1, Lymphocytes # (Auto) 1.0L, Monocytes # (Auto) 0.9H, Eosinophils # (Auto) 0.6H, Basophils # (Auto) 0.1, Nucleated Red Blood Cells % (auto) 0.0, Anion Gap 3L, Glomerular Filtration Rate > 60.0, Calcium Level 8.0L Current Medications Current Medications Current Medications Medications (Trade) Dose Ordered Sig/Kareem Route PRN Reason Start Time Stop Time Status Last Admin Dose Admin Acetaminophen (Tylenol Tab) 1,000 mg TID PO 12/27/19 21:00 12/31/19 07:46 Albuterol/ Ipratropium (Duoneb (Ipr 0.5mg/Alb 2.5mg)) 3 ml RTID NEB 12/28/19 14:00 12/30/19 18:02 Amlodipine Besylate (Norvasc) 5 mg DAILY PO 12/28/19 09:00 12/28/19 13:47 DC 12/28/19 07:47 Amlodipine Besylate (Norvasc) 10 mg DAILY PO 12/28/19 09:00 12/27/19 16:45 DC Amlodipine Besylate (Norvasc) 10 mg DAILY PO 12/29/19 09:00 12/31/19 07:46 Artificial Tears (Akwa Tears) 2 drop QID OU 12/27/19 17:00 12/31/19 07:47 Aspirin (Ecotrin) 81 mg DAILY PO 12/28/19 09:00 12/31/19 07:45 Carbamazepine (TEGretol) 200 mg DAILY PO 12/28/19 09:00 12/31/19 07:45 Docusate Sodium (Colace) 100 mg BID PO 12/27/19 21:00 12/31/19 07:45 Ferrous Gluconate (Fergon) 324 mg BID PO 12/27/19 21:00 Gabapentin (Neurontin) 200 mg QHS PO 12/27/19 21:00 12/28/19 13:47 DC 12/27/19 20:02 Gabapentin (Neurontin) 200 mg TID PO 12/28/19 14:00 12/31/19 07:47 Multivitamins (Theragram-M) 1 tab DAILY PO 12/28/19 09:00 12/28/19 07:48 Omeprazole (PriLOSEC) 40 mg DAILY PO 12/28/19 09:00 12/31/19 07:46 Ondansetron HCl (Zofran Odt) 4 mg Q6HP PRN PO NAUSEA OR VOMITING 12/27/19 20:30 12/29/19 20:06 Rivaroxaban (Xarelto) 10 mg DAILY@1800 PO 12/27/19 18:00 12/30/19 17:19 Senna (Senokot) 1 tab QHS PO 12/27/19 21:00 12/30/19 21:54 Tramadol HCl (Ultram) 50 mg 0800,1200,1600,2100 PO 12/30/19 21:00 12/31/19 07:20 Tramadol HCl (Ultram) 50 mg Q4HP PRN PO MODERATE PAIN (PS 5-7) 12/27/19 12:30 12/28/19 13:47 DC Tramadol HCl (Ultram) 50 mg TID@0800,1200,1600 PO 12/28/19 16:00 12/30/19 18:06 DC 12/30/19 17:20 DSEIRAE BRUCE MD Dec 31, 2019 11:01
[2019-12-31] MEDS: SODIUM CHLORIDE NASAL 0.65% SPRAY BTL (OCEAN) SCH ×3 (11:57→21:56)
[2019-12-31] MEDS: GABAPENTIN 300 MG CAP PO SCH ×2 (13:13→21:53)
[2019-12-31 14:00] VITALS: BP 127/58
[2019-12-31] MEDS ORDERED: traMADol 50 MG TAB PO ONE (14:00)
[2019-12-31] MEDS ORDERED: CALCIUM CARBONATE 500 MG CHEW U/D PO PRN (15:00)
[2019-12-31] MEDS: RIVAROXABAN 10 MG TAB (XARELTO) PO SCH (16:51)
[2019-12-31 20:00] VITALS: BP 153/68
[2019-12-31] MEDS: SENNA 8.6 MG TAB (SENOKOT) PO SCH (21:53)
[2020-01-01 06:00] VITALS: BP 140/64
[2020-01-01] MEDS: traMADol 50 MG TAB PO SCH ×2 (07:42→12:25)
[2020-01-01] MEDS: DOCUSATE SODIUM 100 MG CAP PO SCH ×2 (09:00→20:22)
[2020-01-01] MEDS: MULTIVITAMINS/MINERALS THERAP 1 TAB PO SCH (09:00)
[2020-01-01] MEDS: REMEDY PHYTOPLEX Z-GUARD PASTE 113GM TUBE (FROM STOREROOM PRODUCT) TOP SCH ×3 (09:00→20:22)
[2020-01-01] MEDS: OMEPRAZOLE 20 MG CAP PO SCH (09:47)
[2020-01-01] MEDS: carBAMazepine 200 MG TAB PO SCH (09:47)
[2020-01-01] MEDS: ASPIRIN 81 MG ENTERIC TAB PO SCH (09:47)
[2020-01-01] MEDS: ACETAMINOPHEN 500 MG TAB PO SCH ×3 (09:48→20:21)
[2020-01-01] MEDS: GABAPENTIN 300 MG CAP PO SCH ×3 (09:49→20:21)
[2020-01-01] MEDS: POLYVINYL ALCOHOL OPHTH SOLN 15 ML(LIQUITEARS) OU SCH ×4 (09:50→20:22)
[2020-01-01] MEDS: SODIUM CHLORIDE NASAL 0.65% SPRAY BTL (OCEAN) SCH ×3 (09:50→20:22)
[2020-01-01] MEDS: amLODIPine 10 MG TAB PO SCH (09:52)
[2020-01-01] MEDS ORDERED: LOPERAMIDE 2 MG CAPLET PO PRN (11:00)
[2020-01-01] MEDS ORDERED: LOPERAMIDE 2 MG CAPLET PO ONE (11:00)
[2020-01-01 14:00] VITALS: BP 132/70
--- NOTE | 2020-01-01 14:56 | IPNPDOC ---
PM&R Progress Note DATE OF SERVICE: Jan 01, 2020 Entry Level Administrative Assistant Progress Note Subjective: Patient seen in her room with her son present, asking about being able ot take tramadol later than 3 o'clock am because she woke up just after3 in pain last night and was not able to take pain medication. REVIEW OF SYSTEMS: The following is a completed review of systems and has been reviewed. Review of systems otherwise unremarkable. PAIN: Patient self reports left hip pain EYES: No recent vision changes EARS, NOSE, & THROAT: No throat pain, or dysphagia, or rhinorrhea CARDIOVASCULAR: Denies chest pain or palpitations PULMONARY: Denies shortness of breath GASTROINTESTINAL: Denies constipation/diarrhea GENITOURINARY: +urinary incontinence (chronic) MUSCULOSKELETAL: left hip fracture NEUROLOGICAL:denies tremor or paresthesias HEMATOLOGICAL: +anemia SKIN: left hip incision PSYCHIATRIC: Unremarkable All other review of systems found to be negative. PHYSICAL EXAMINATION: VITAL SIGNS: Please see below. GENERAL: Pleasant and cooperative. No acute distress. HEENT: PERRL. Extraocular movements intact. Clear conjunctiva CARDIOVASCULAR: Regular rate and rhythm. No murmurs, rubs, or gallops LUNGS: Clear to auscultation bilaterally. No wheezes. No rhonchi ABDOMEN: Soft, nontender, nondistended. Positive bowel sounds. Normal active bowel sounds NEUROLOGICAL: Alert and oriented times three. Cranial nerves II through XII grossly intact. Sensation grossly intact including 1st web space left foot EXTREMITIES: 5\\5 strength bilateral upper extremities. 5\\5 strength right lower extremity. 5/5 strength in left ankle DF/EHL/PF (limited due to surgery) (-) Mane's SKIN: left hip incision (not examined today) ASSESSMENT:84-year-old F with past medical history of htn and aortic stenosis who presents status post left hip fracture PLAN: 1. Rehab- PT/OT advance agit and ADLs, strengthen/stretch/maintain ROM all 4 limbs, ambulating with RW, beginning to work on stairs 2. Cardiac- hx of aortic stenosis and HTN, will c/u to hold home Valsartan-HCTZ due to recent soft BPs, c/u Amlodipine and ASA-BPs well controlled -medicine consulted to assist in overall management 3. Ortho- s/p let hip fracture with ORIF, ortho consulted, WBAT 4. Resp- encourage incentive spirometry, monitor for infection 5. Neuro- hx of trigeminal neural c/u Tegretol 6. Heme- s/p 2 units prbc for post-op anemia, will c/u to monitor and transfuse if Hgb <8 or if becomes symptomatic 7. Pain- Tylenol and tramadol- patient reporting she has minimal pain during the day, but would like to be nuris to take tramadol between 3-4 am will adjust order, c/u increased daytime gabapentin dosing to 300mg BID and evening dose to 600mg- 8. GI ppx- omeprazole 9. DVT ppx- Xarelto -Dopplers negative 10. - voiding well with some chronic incontinence 11. Dispo- 01/11/20 Allergies Coded Allergies: Penicillins (Verified Allergy, Severe, TONGUE SWELLING, DIZINESS, 12/25/19) Quinolones (Verified Allergy, Severe, TONGUE SWELLING,DIZINESS, 12/25/19) codeine (Verified Adverse Reaction, Mild, N/V, 12/25/19) oxycodone (Verified Adverse Reaction, Mild, "KNOCKED OUT", 12/25/19) Vital Signs Vital Signs Date Time Temp Pulse Resp B/P (MAP) Pulse Ox O2 Delivery O2 Flow Rate FiO2 01/01/20 14:00 98.9 76 18 132/70 (90) 93 Room Air 01/01/20 06:00 1.0 Current Medications Current Medications Current Medications Medications (Trade) Dose Ordered Sig/Kareem Route PRN Reason Start Time Stop Time Status Last Admin Dose Admin Acetaminophen (Tylenol Tab) 1,000 mg TID PO 12/27/19 21:00 01/01/20 09:48 Albuterol/ Ipratropium (Duoneb (Ipr 0.5mg/Alb 2.5mg)) 3 ml RTID NEB 12/28/19 14:00 12/31/19 10:54 DC 12/30/19 18:02 Amlodipine Besylate (Norvasc) 5 mg DAILY PO 12/28/19 09:00 12/28/19 13:47 DC 12/28/19 07:47 Amlodipine Besylate (Norvasc) 10 mg DAILY PO 12/28/19 09:00 12/27/19 16:45 DC Amlodipine Besylate (Norvasc) 10 mg DAILY PO 12/29/19 09:00 01/01/20 09:52 Artificial Tears (Akwa Tears) 2 drop QID OU 12/27/19 17:00 01/01/20 13:07 Aspirin (Ecotrin) 81 mg DAILY PO 12/28/19 09:00 01/01/20 09:47 Calcium Carbonate (Tums) 500 mg BID PRN PO INDIGESTION 12/31/19 15:00 Carbamazepine (TEGretol) 200 mg DAILY PO 12/28/19 09:00 01/01/20 09:47 Docusate Sodium (Colace) 100 mg BID PO 12/27/19 21:00 12/31/19 21:53 Ferrous Gluconate (Fergon) 324 mg BID PO 12/27/19 21:00 12/31/19 10:56 DC Gabapentin (Neurontin) 200 mg QHS PO 12/27/19 21:00 12/28/19 13:47 DC 12/27/19 20:02 Gabapentin (Neurontin) 200 mg TID PO 12/28/19 14:00 12/31/19 10:54 DC 12/31/19 07:47 Gabapentin (Neurontin) 300 mg BID@0800,1400 PO 12/31/19 14:00 01/01/20 13:07 Gabapentin (Neurontin) 600 mg QHS PO 12/31/19 21:00 12/31/19 21:53 Loperamide HCl (Imodium) 2 mg ASDIRECTED PRN PO DIARRHEA 01/01/20 11:00 Multivitamins (Theragram-M) 1 tab DAILY PO 12/28/19 09:00 12/28/19 07:48 Omeprazole (PriLOSEC) 40 mg DAILY PO 12/28/19 09:00 01/01/20 09:47 Ondansetron HCl (Zofran Odt) 4 mg Q6HP PRN PO NAUSEA OR VOMITING 12/27/19 20:30 12/29/19 20:06 Rivaroxaban (Xarelto) 10 mg DAILY@1800 PO 12/27/19 18:00 12/31/19 16:51 Senna (Senokot) 1 tab QHS PO 12/27/19 21:00 12/31/19 21:53 Sodium Chloride ([place] Nasal [place]) 2 spray TID NA 12/31/19 09:00 01/01/20 09:50 Tramadol HCl (Ultram) 50 mg 0800,1200,1600,2100 PO 12/30/19 21:00 12/31/19 10:54 DC 12/31/19 07:20 Tramadol HCl (Ultram) 50 mg DAILY PRN PO X 1 DOSE BETWEEN 12AM - 3AM 12/31/19 13:30 Tramadol HCl (Ultram) 50 mg Q12HP PRN PO PAIN 12/31/19 11:00 12/31/19 13:22 DC Tramadol HCl (Ultram) 50 mg Q4HP PRN PO MODERATE PAIN (PS 5-7) 12/27/19 12:30 12/28/19 13:47 DC Tramadol HCl (Ultram) 50 mg TID@0800,1200,1600 PO 12/28/19 16:00 12/30/19 18:06 DC 12/30/19 17:20 Tramadol HCl (Ultram) 50 mg TID@0800,1300,1900 PO 12/31/19 19:00 01/01/20 12:25 DESIRAE BRUCE MD Jan 01, 2020 14:56
--- NOTE | 2020-01-01 15:05 | HPEPDOC ---
[facility] Medical History & Physical Date of Admission Jan 01, 2020 Date of Service: Jan 01, 2020 History and Physical Chief complaint: Transferred to acute rehabilitation unit after she had sustained a left hip fracture Hospital service was consulted for medical co-management History of present illness: Patient is an 84-year-old female with a PMHx of HTN, DLP, Trigeminal Neuralgia, Aortic stenosis, Thalassemia and GERD who recently presented to [facility]. on 12/25/19 after she had fallen while at home. The emergency room, patient was found to have a left hip fracture and was admitted to hospital service for further evaluation. Orthopedic surgery was consulted and the patient was taken to the OR for ORIF on 12/25/19. Patient continue with physical therapy and was eventually transitioned to acute rehabilitation unit on 12/27/19. I was officially notified of consultation on 01/01/20 morning. Currently patient denies any nausea, vomiting, chest pain, changes in shortness of breath palpitations, abdominal pain, constipation, or urinary discomfort. Patient reports that she did experience diarrhea this morning that has now resolved. R eports that she is taking her own Imodium medication. She reports that physical therapy is going well and she has been progressing. 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 Review of Systems: [10 point review of systems complete, all negative otherwise stated in HPI] Physical exam: - Vitals: BP [141/62], HR [78], RR [20], Sat [94%RA], Temp [98.7F] - General: Sitting up in chair, No acute distress, Speaking in full sentences, AAOx3 - HEENT: NC, AT, PERRLA - CVS: RRR, +S1S2 - Lungs: Fair air entry bilaterally, No appreciable wheezing / rales / rhonchi - Abdomen: Soft, Non-distended, Non-tender - Extremities: No lower extremity edema, No calf tenderness - Neuro: No focal motor or sensory deficit - Skin: No visible rashes Assessment and Plan: Left hip fracture - Pain control and anticoagulation at the direction of orthopedic surgery - Currently on Tramadol - Physical therapy at the direction of operator cavity pump HTN - BP well controlled - c/w Amlodipine with holding parameters DLP - c/w ASA Trigeminal Neuralgia - c/w Carbamazepine and Gabapentin Aortic stenosis - c/w Thalassemia - c/w Multivitamins GERD - c/w Omeprazole DVT prophylaxis - Anticoagulation as per Vital Signs Vital Signs Date Time Temp Pulse Resp B/P (MAP) Pulse Ox O2 Delivery O2 Flow Rate FiO2 01/01/20 14:00 98.9 76 18 132/70 (90) 93 Room Air 01/01/20 06:00 1.0 Home Medications Scheduled Amlodipine Besylate (Amlodipine Besylate) 10 Mg Tab, 10 MG PO DAILY Aspirin (Aspir 81) 81 Mg Tablet.dr, 81 MG PO DAILY Carbamazepine (Carbamazepine) 200 Mg Tab, 200 MG PO DAILY Ergocalciferol (Vitamin D2) (Vitamin D2) 50,000 Units Cap, 50,000 UNITS PO QWEEK FRIDAYS Multivitamins (Thera M Plus Tablet) 1 Each Tablet, 1 TAB PO QHS Omeprazole (Omeprazole) 40 Mg Cap, 40 MG PO DAILY Rivaroxaban (Xarelto) 10 Mg Tablet, 10 MG PO DAILY@18 Valsartan/Hydrochlorothiazide (Valsartan-Hctz 160-12.5 mg Tab) 1 Tab Tab, 1 TAB PO DAILY Scheduled PRN Acetaminophen (Acetaminophen) 325 Mg Tablet, 650 MG PO Q4H PRN for PAIN Ibuprofen (Ibuprofen) 600 Mg Tablet, 600 MG PO Q8H PRN for PAIN Allergies Coded Allergies: Penicillins (Verified Allergy, Severe, TONGUE SWELLING, DIZINESS, 12/25/19) Quinolones (Verified Allergy, Severe, TONGUE SWELLING,DIZINESS, 12/25/19) codeine (Verified Adverse Reaction, Mild, N/V, 12/25/19) oxycodone (Verified Adverse Reaction, Mild, "KNOCKED OUT", 12/25/19) FLASH SARAH MD Jan 01, 2020 15:05
[2020-01-01] MEDS: RIVAROXABAN 10 MG TAB (XARELTO) PO SCH (18:38)
[2020-01-01 20:00] VITALS: BP 151/65
[2020-01-01] MEDS: SENNA 8.6 MG TAB (SENOKOT) PO SCH (20:22)
[2020-01-02 06:19] VITALS: BP 137/67
[2020-01-02 07:34] LABS: BASO # 0.1 10^3/uL (0.0-0.2); BASO % 0.5 % (0.0-1.0); EOS # 0.5 10^3/uL (0.0-0.5); EOS % 4.7 % (0.0-3.0); HEMATOCRIT 28.4 % (36.0-47.0); HEMOGLOBIN 8.8 g/dl (12.0-15.5); LYMPH # 1.2 10^3/uL (1.5-5.0); LYMPH % 12.4 % (24.0-44.0); MEAN CORPUSCULAR HEMOGLOBIN 22.8 pg (27.0-33.0); MEAN CORPUSCULAR VOLUME 73.6 fl (80.0-96.0); MONO # 0.8 10^3/uL (0.0-0.8); MONO % 8.5 % (0.0-5.0); NEUTROPHILS # 7.1 10^3/uL (1.5-8.5); NEUTROPHILS % 73.2 % (36.0-66.0); PLATELET COUNT, AUTOMATED 331 10^3/uL (150-450); RED BLOOD COUNT 3.86 10^6/uL (4.00-5.40); WHITE BLOOD COUNT 9.7 10^3/uL (4.0-10.0)
[2020-01-02] MEDS ORDERED: XARE10TA PO (07:42)
[2020-01-02] MEDS: GABAPENTIN 300 MG CAP PO SCH ×3 (07:52→20:35)
[2020-01-02 07:53] LABS: BLOOD UREA NITROGEN 23 MG/DL (7-18); CALCIUM LEVEL 8.4 MG/DL (8.8-10.2); CARBON DIOXIDE LEVEL 30 MEQ/L (21-32); CHLORIDE LEVEL 105 MEQ/L (98-107); CREATININE FOR GFR 0.56 MG/DL (0.55-1.30); GLOMERULAR FILTRATION RATE > 60.0 (>32); GLUCOSE, FASTING 99 MG/DL (70-100); POTASSIUM SERUM 4.2 MEQ/L (3.5-5.1); SODIUM LEVEL 141 MEQ/L (136-145)
[2020-01-02] MEDS: ASPIRIN 81 MG ENTERIC TAB PO SCH (07:53)
[2020-01-02] MEDS: ACETAMINOPHEN 500 MG TAB PO SCH ×3 (07:53→20:36)
[2020-01-02] MEDS: DOCUSATE SODIUM 100 MG CAP PO SCH ×2 (07:53→20:35)
[2020-01-02] MEDS: MULTIVITAMINS/MINERALS THERAP 1 TAB PO SCH ×2 (07:54→07:59)
[2020-01-02] MEDS: amLODIPine 10 MG TAB PO SCH (07:54)
[2020-01-02] MEDS: OMEPRAZOLE 20 MG CAP PO SCH (07:54)
[2020-01-02] MEDS: carBAMazepine 200 MG TAB PO SCH (07:54)
[2020-01-02] MEDS: REMEDY PHYTOPLEX Z-GUARD PASTE 113GM TUBE (FROM STOREROOM PRODUCT) TOP SCH ×3 (07:55→20:36)
[2020-01-02] MEDS: POLYVINYL ALCOHOL OPHTH SOLN 15 ML(LIQUITEARS) OU SCH ×4 (07:55→20:36)
[2020-01-02] MEDS: SODIUM CHLORIDE NASAL 0.65% SPRAY BTL (OCEAN) SCH ×3 (07:55→20:36)
[2020-01-02] MEDS ORDERED: traMADol 50 MG TAB PO SCH (08:00)
--- NOTE | 2020-01-02 13:38 | IPNPDOC ---
PM&R Progress Note DATE OF SERVICE: Jan 02, 2020 Sales Team Manager Progress Note Subjective: Patient seen in her room stating she asked the nurse to wake her overnight to take tramadol and then when she asked for it again at 7am her dose was delayed. She is agreeable to changing her scheduled tramadol doses to prn so that she has more control over when she gets it. She states her pain during the day is minimal, but worse in the early mornings. REVIEW OF SYSTEMS: The following is a completed review of systems and has been reviewed. Review of systems otherwise unremarkable. PAIN: Patient self reports left hip pain EYES: No recent vision changes EARS, NOSE, & THROAT: No throat pain, or dysphagia, or rhinorrhea CARDIOVASCULAR: Denies chest pain or palpitations PULMONARY: Denies shortness of breath GASTROINTESTINAL: Denies constipation/diarrhea GENITOURINARY: +urinary incontinence (chronic) MUSCULOSKELETAL: left hip fracture NEUROLOGICAL:denies tremor or paresthesias HEMATOLOGICAL: +anemia SKIN: left hip incision PSYCHIATRIC: Unremarkable All other review of systems found to be negative. PHYSICAL EXAMINATION: VITAL SIGNS: Please see below. GENERAL: Pleasant and cooperative. No acute distress. HEENT: PERRL. Extraocular movements intact. Clear conjunctiva CARDIOVASCULAR: Regular rate and rhythm. No murmurs, rubs, or gallops LUNGS: Clear to auscultation bilaterally. No wheezes. No rhonchi ABDOMEN: Soft, nontender, nondistended. Positive bowel sounds. Normal active bowel sounds NEUROLOGICAL: Alert and oriented times three. Cranial nerves II through XII grossly intact. Sensation grossly intact including 1st web space left foot EXTREMITIES: 5\\5 strength bilateral upper extremities. 5\\5 strength right lower extremity. 5/5 strength in left ankle DF/EHL/PF (limited due to surgery) (-) Mane's SKIN: left hip incision (not examined today) ASSESSMENT:84-year-old F with past medical history of htn and aortic stenosis wh o presents status post left hip fracture PLAN: 1. Rehab- PT/OT advance agit and ADLs, strengthen/stretch/maintain ROM all 4 limbs, ambulating with RW, beginning to work on stairs 2. Cardiac- hx of aortic stenosis and HTN, will c/u to hold home Valsartan-HCTZ due to recent soft BPs, c/u Amlodipine and ASA-BPs well controlled -medicine consulted to assist in overall management 3. Ortho- s/p let hip fracture with ORIF, ortho consulted, WBAT 4. Resp- encourage incentive spirometry, monitor for infection 5. Neuro- hx of trigeminal neural c/u Tegretol 6. Heme- s/p 2 units prbc for post-op anemia, will c/u to monitor and transfuse if Hgb <8 or if becomes symptomatic 7. Pain- Tylenol and gabapentin- will change tramadol dosing to q4h prn so that patient can take it twice at night if needed, she was encouraged to only take it if she has pain >6 or right before therapy for anticipated pain, but not to take when is not in pain-plan discussed as well with daughter Kristen over the phone -patient c/u to report minimal pain during the day and c/u to progress very well in therapy 8. GI ppx- omeprazole 9. DVT ppx- Xarelto -Dopplers negative 10. - voiding well with some chronic incontinence 11. Dispo- 01/11/20, progressing towards goals Allergies Coded Allergies: Penicillins (Verified Allergy, Severe, TONGUE SWELLING, DIZINESS, 12/25/19) Quinolones (Verified Allergy, Severe, TONGUE SWELLING,DIZINESS, 12/25/19) codeine (Verified Adverse Reaction, Mild, N/V, 12/25/19) oxycodone (Verified Adverse Reaction, Mild, "KNOCKED OUT", 12/25/19) Vital Signs Vital Signs Date Time Temp Pulse Resp B/P (MAP) Pulse Ox O2 Delivery O2 Flow Rate FiO2 01/02/20 07:54 82 137/67 01/02/20 07:53 20 01/02/20 06:19 97.2 94 Room Air 01/01/20 20:00 0.0 Laboratory Data CBC/BMP Laboratory Tests 01/02/20 06:55 Labs 24H Laboratory Tests 2 01/02/20 06:55: Immature Granulocyte % (Auto) 0.7, Neutrophils (%) (Auto) 73.2H, Lymphocytes (%) (Auto) 12.4L, Monocytes (%) (Auto) 8.5H, Eosinophils (%) (Auto) 4.7H, Basophils (%) (Auto) 0.5, Neutrophils # (Auto) 7.1, Lymphocytes # (Auto) 1.2L, Monocytes # (Auto) 0.8, Eosinophils # (Auto) 0.5, Basophils # (Auto) 0.1, Nucleated Red Blood Cells % (auto) 0.2H, Anion Gap 6L, Glomerular Filtration Rate > 60.0, Calcium Level 8.4L Current Medications Current Medications Current Medications Medications (Trade) Dose Ordered Sig/Kareem Route PRN Reason Start Time Stop Time Status Last Admin Dose Admin Acetaminophen (Tylenol Tab) 1,000 mg TID PO 12/27/19 21:00 01/02/20 07:53 Albuterol/ Ipratropium (Duoneb (Ipr 0.5mg/Alb 2.5mg)) 3 ml RTID NEB 12/28/19 14:00 12/31/19 10:54 DC 12/30/19 18:02 Amlodipine Besylate (Norvasc) 5 mg DAILY PO 12/28/19 09:00 12/28/19 13:47 DC 12/28/19 07:47 Amlodipine Besylate (Norvasc) 10 mg DAILY PO 12/28/19 09:00 12/27/19 16:45 DC Amlodipine Besylate (Norvasc) 10 mg DAILY PO 12/29/19 09:00 01/02/20 07:54 Artificial Tears (Akwa Tears) 2 drop QID OU 12/27/19 17:00 01/02/20 07:55 Aspirin (Ecotrin) 81 mg DAILY PO 12/28/19 09:00 01/02/20 07:53 Calcium Carbonate (Tums) 500 mg BID PRN PO INDIGESTION 12/31/19 15:00 Carbamazepine (TEGretol) 200 mg DAILY PO 12/28/19 09:00 01/02/20 07:54 Docusate Sodium (Colace) 100 mg BID PO 12/27/19 21:00 01/02/20 07:53 Ferrous Gluconate (Fergon) 324 mg BID PO 12/27/19 21:00 12/31/19 10:56 DC Gabapentin (Neurontin) 200 mg QHS PO 12/27/19 21:00 12/28/19 13:47 DC 12/27/19 20:02 Gabapentin (Neurontin) 200 mg TID PO 12/28/19 14:00 12/31/19 10:54 DC 12/31/19 07:47 Gabapentin (Neurontin) 300 mg BID@0800,1400 PO 12/31/19 14:00 01/02/20 07:52 Gabapentin (Neurontin) 600 mg QHS PO 12/31/19 21:00 01/01/20 20:21 Loperamide HCl (Imodium) 2 mg ASDIRECTED PRN PO DIARRHEA 01/01/20 11:00 Multivitamins (Theragram-M) 1 tab DAILY PO 12/28/19 09:00 12/28/19 07:48 Omeprazole (PriLOSEC) 40 mg DAILY PO 12/28/19 09:00 01/02/20 07:54 Ondansetron HCl (Zofran Odt) 4 mg Q6HP PRN PO NAUSEA OR VOMITING 12/27/19 20:30 12/29/19 20:06 Rivaroxaban (Xarelto) 10 mg DAILY@1800 PO 12/27/19 18:00 01/01/20 18:38 Senna (Senokot) 1 tab QHS PO 12/27/19 21:00 12/31/19 21:53 Sodium Chloride ([place] Nasal [place]) 2 spray TID NA 12/31/19 09:00 01/02/20 07:55 Tramadol HCl (Ultram) 50 mg 0800,1200,1600,2100 PO 12/30/19 21:00 12/31/19 10:54 DC 12/31/19 07:20 Tramadol HCl (Ultram) 50 mg BID@0800,1300 PO 01/02/20 08:00 01/02/20 12:32 DC 01/02/20 07:53 Tramadol HCl (Ultram) 50 mg DAILY PRN PO X 1 DOSE BETWEEN 12AM - 4AM 12/31/19 13:30 01/02/20 12:32 DC 01/02/20 02:09 Tramadol HCl (Ultram) 50 mg Q12HP PRN PO PAIN 12/31/19 11:00 12/31/19 13:22 DC Tramadol HCl (Ultram) 50 mg Q4HP PRN PO MODERATE PAIN (PS 5-7) 12/27/19 12:30 12/28/19 13:47 DC Tramadol HCl (Ultram) 50 mg Q4HP PRN PO MODERATE PAIN >6/10 01/02/20 12:30 Tramadol HCl (Ultram) 50 mg TID@0800,1200,1600 PO 12/28/19 16:00 12/30/19 18:06 DC 12/30/19 17:20 Tramadol HCl (Ultram) 50 mg TID@0800,1300,1900 PO 12/31/19 19:00 01/01/20 17:58 DC 01/01/20 12:25 DESIRAE BRUCE MD Jan 02, 2020 13:37
[2020-01-02 14:00] VITALS: BP 156/75
[2020-01-02] MEDS: RIVAROXABAN 10 MG TAB (XARELTO) PO SCH (17:24)
[2020-01-02 20:00] VITALS: BP 149/68
[2020-01-02] MEDS: SENNA 8.6 MG TAB (SENOKOT) PO SCH (20:36)
[2020-01-03] MEDS: traMADol 50 MG TAB PO PRN ×2 (02:05→06:17)
[2020-01-03 05:20] VITALS: BP 141/63
[2020-01-03] MEDS: GABAPENTIN 300 MG CAP PO SCH ×3 (08:33→20:34)
[2020-01-03] MEDS: ASPIRIN 81 MG ENTERIC TAB PO SCH (08:33)
[2020-01-03] MEDS: DOCUSATE SODIUM 100 MG CAP PO SCH ×2 (08:33→20:34)
[2020-01-03] MEDS: amLODIPine 10 MG TAB PO SCH (08:33)
[2020-01-03] MEDS: SODIUM CHLORIDE NASAL 0.65% SPRAY BTL (OCEAN) SCH ×3 (08:34→20:35)
[2020-01-03] MEDS: OMEPRAZOLE 20 MG CAP PO SCH (08:34)
[2020-01-03] MEDS: carBAMazepine 200 MG TAB PO SCH (08:34)
[2020-01-03] MEDS: ACETAMINOPHEN 500 MG TAB PO SCH ×3 (08:34→20:34)
[2020-01-03] MEDS: MULTIVITAMINS/MINERALS THERAP 1 TAB PO SCH (08:34)
[2020-01-03] MEDS: POLYVINYL ALCOHOL OPHTH SOLN 15 ML(LIQUITEARS) OU SCH ×4 (08:34→20:34)
[2020-01-03] MEDS: REMEDY PHYTOPLEX Z-GUARD PASTE 113GM TUBE (FROM STOREROOM PRODUCT) TOP SCH ×3 (08:35→20:35)
--- NOTE | 2020-01-03 10:49 | IPNPDOC ---
PM&R Progress Note DATE OF SERVICE: Jan 03, 2020 [employer] Progress Note Subjective: Patient reporting she did better overnight with her pain and would like to be able to walk a little after dinner so that her hip doesn't stiffen up. REVIEW OF SYSTEMS: The following is a completed review of systems and has been reviewed. Review of systems otherwise unremarkable. PAIN: Patient self reports left hip pain EYES: No recent vision changes EARS, NOSE, & THROAT: No throat pain, or dysphagia, or rhinorrhea CARDIOVASCULAR: Denies chest pain or palpitations PULMONARY: Denies shortness of breath GASTROINTESTINAL: Denies constipation/diarrhea GENITOURINARY: +urinary incontinence (chronic) MUSCULOSKELETAL: left hip fracture NEUROLOGICAL:denies tremor or paresthesias HEMATOLOGICAL: +anemia SKIN: left hip incision PSYCHIATRIC: Unremarkable All other review of systems found to be negative. PHYSICAL EXAMINATION: VITAL SIGNS: Please see below. GENERAL: Pleasant and cooperative. No acute distress. HEENT: PERRL. Extraocular movements intact. Clear conjunctiva CARDIOVASCULAR: Regular rate and rhythm. No murmurs, rubs, or gallops LUNGS: Clear to auscultation bilaterally. No wheezes. No rhonchi ABDOMEN: Soft, nontender, nondistended. Positive bowel sounds. Normal active bowel sounds NEUROLOGICAL: Alert and oriented times three. Cranial nerves II through XII grossly intact. Sensation grossly intact including 1st web space left foot EXTREMITIES: 5\\5 strength bilateral upper extremities. 5\\5 strength right lower extremity. 5/5 strength in left ankle DF/EHL/PF (limited due to surgery) (-) Mane's SKIN: left hip incision c/d/i ASSESSMENT:84-year-old F with past medical history of htn and aortic stenosis who presents status post left hip fracture PLAN: 1. Rehab- PT/OT advance agit and ADLs, strengthen/stretch/maintain ROM all 4 limbs, ambulating with RW, beginning to work on stairs 2. Cardiac- hx of aortic stenosis and HTN, will c/u to hold home Valsartan-HCTZ due to recent soft BPs, c/u Amlodipine and ASA-BPs well controlled -medicine consulted to assist in overall management 3. Ortho- s/p let hip fracture with ORIF, ortho consulted, WBAT 4. Resp- encourage incentive spirometry, monitor for infection 5. Neuro- hx of trigeminal neural c/u Tegretol 6. Heme- s/p 2 units prbc for post-op anemia, will c/u to monitor and transfuse if Hgb <8 or if becomes symptomatic 7. Pain- Tylenol and gabapentin- c/u tramadol dosing q4h prn -patient c/u to report minimal pain during the day and c/u to progress very well in therapy, will add lidoderm patch to left groin qHS and request patient to be walked with nursing prior to bedtime 8. GI ppx- omeprazole 9. DVT ppx- Xarelto -Dopplers negative 10. - voiding well with some chronic incontinence 11. Dispo- 01/11/20, progressing towards goals Allergies Coded Allergies: Penicillins (Verified Allergy, Severe, TONGUE SWELLING, DIZINESS, 12/25/19) Quinolones (Verified Allergy, Severe, TONGUE SWELLING,DIZINESS, 12/25/19) codeine (Verified Adverse Reaction, Mild, N/V, 12/25/19) oxycodone (Verified Adverse Reaction, Mild, "KNOCKED OUT", 12/25/19) Vital Signs Vital Signs Date Time Temp Pulse Resp B/P (MAP) Pulse Ox O2 Delivery O2 Flow Rate FiO2 01/03/20 08:33 75 138/67 01/03/20 06:47 18 01/03/20 05:20 97.9 90 Room Air 01/01/20 20:00 0.0 Current Medications Current Medications Current Medications Medications (Trade) Dose Ordered Sig/Kareem Route PRN Reason Start Time Stop Time Status Last Admin Dose Admin Acetaminophen (Tylenol Tab) 1,000 mg TID PO 12/27/19 21:00 01/03/20 08:34 Albuterol/ Ipratropium (Duoneb (Ipr 0.5mg/Alb 2.5mg)) 3 ml RTID NEB 12/28/19 14:00 12/31/19 10:54 DC 12/30/19 18:02 Amlodipine Besylate (Norvasc) 5 mg DAILY PO 12/28/19 09:00 12/28/19 13:47 DC 12/28/19 07:47 Amlodipine Besylate (Norvasc) 10 mg DAILY PO 12/28/19 09:00 12/27/19 16:45 DC Amlodipine Besylate (Norvasc) 10 mg DAILY PO 12/29/19 09:00 01/03/20 08:33 Artificial Tears (Akwa Tears) 2 drop QID OU 12/27/19 17:00 01/03/20 08:34 Aspirin (Ecotrin) 81 mg DAILY PO 12/28/19 09:00 01/03/20 08:33 Calcium Carbonate (Tums) 500 mg BID PRN PO INDIGESTION 12/31/19 15:00 Carbamazepine (TEGretol) 200 mg DAILY PO 12/28/19 09:00 01/03/20 08:34 Docusate Sodium (Colace) 100 mg BID PO 12/27/19 21:00 01/03/20 08:33 Ferrous Gluconate (Fergon) 324 mg BID PO 12/27/19 21:00 12/31/19 10:56 DC Gabapentin (Neurontin) 200 mg QHS PO 12/27/19 21:00 12/28/19 13:47 DC 12/27/19 20:02 Gabapentin (Neurontin) 200 mg TID PO 12/28/19 14:00 12/31/19 10:54 DC 12/31/19 07:47 Gabapentin (Neurontin) 300 mg BID@0800,1400 PO 12/31/19 14:00 01/03/20 08:33 Gabapentin (Neurontin) 600 mg QHS PO 12/31/19 21:00 01/02/20 20:35 Loperamide HCl (Imodium) 2 mg ASDIRECTED PRN PO DIARRHEA 01/01/20 11:00 Multivitamins (Theragram-M) 1 tab DAILY PO 12/28/19 09:00 12/28/19 07:48 Omeprazole (PriLOSEC) 40 mg DAILY PO 12/28/19 09:00 01/03/20 08:34 Ondansetron HCl (Zofran Odt) 4 mg Q6HP PRN PO NAUSEA OR VOMITING 12/27/19 20:30 12/29/19 20:06 Rivaroxaban (Xarelto) 10 mg DAILY@1800 PO 12/27/19 18:00 01/02/20 17:24 Senna (Senokot) 1 tab QHS PO 12/27/19 21:00 01/02/20 20:36 Sodium Chloride ([place] Nasal [place]) 2 spray TID NA 12/31/19 09:00 01/03/20 08:34 Tramadol HCl (Ultram) 50 mg 0800,1200,1600,2100 PO 12/30/19 21:00 12/31/19 10:54 DC 12/31/19 07:20 Tramadol HCl (Ultram) 50 mg BID@0800,1300 PO 01/02/20 08:00 01/02/20 12:32 DC 01/02/20 07:53 Tramadol HCl (Ultram) 50 mg DAILY PRN PO X 1 DOSE BETWEEN 12AM - 4AM 12/31/19 13:30 01/02/20 12:32 DC 01/02/20 02:09 Tramadol HCl (Ultram) 50 mg Q12HP PRN PO PAIN 12/31/19 11:00 12/31/19 13:22 DC Tramadol HCl (Ultram) 50 mg Q4HP PRN PO MODERATE PAIN (PS 5-7) 12/27/19 12:30 12/28/19 13:47 DC Tramadol HCl (Ultram) 50 mg Q4HP PRN PO MODERATE PAIN >6/10 01/02/20 12:30 01/03/20 06:17 Tramadol HCl (Ultram) 50 mg TID@0800,1200,1600 PO 12/28/19 16:00 12/30/19 18:06 DC 12/30/19 17:20 Tramadol HCl (Ultram) 50 mg TID@0800,1300,1900 PO 12/31/19 19:00 01/01/20 17:58 DC 01/01/20 12:25 DESIRAE BRUCE MD Jan 03, 2020 10:49
[2020-01-03 14:00] VITALS: BP 138/81
[2020-01-03] MEDS: RIVAROXABAN 10 MG TAB (XARELTO) PO SCH (16:42)
[2020-01-03 20:00] VITALS: BP 150/67
[2020-01-03] MEDS: SENNA 8.6 MG TAB (SENOKOT) PO SCH (20:34)
[2020-01-03] MEDS: LIDOCAINE 5% (LIDODERM) PATCH TD SCH (20:35)
[2020-01-04] MEDS: traMADol 50 MG TAB PO PRN ×2 (02:34→06:33)
[2020-01-04 06:00] VITALS: BP 149/78
[2020-01-04 07:13] LABS: BASO # 0.1 10^3/uL (0.0-0.2); BASO % 0.7 % (0.0-1.0); EOS # 0.5 10^3/uL (0.0-0.5); EOS % 5.4 % (0.0-3.0); HEMATOCRIT 26.6 % (36.0-47.0); HEMOGLOBIN 8.2 g/dl (12.0-15.5); LYMPH # 1.4 10^3/uL (1.5-5.0); MEAN CORPUSCULAR HEMOGLOBIN 22.6 pg (27.0-33.0); MEAN CORPUSCULAR HGB CONC 30.8 g/dl (32.0-36.5); MEAN CORPUSCULAR VOLUME 73.3 fl (80.0-96.0); MONO # 0.9 10^3/uL (0.0-0.8); MONO % 9.4 % (0.0-5.0); NEUTROPHILS # 6.2 10^3/uL (1.5-8.5); NEUTROPHILS % 68.6 % (36.0-66.0); PLATELET COUNT, AUTOMATED 331 10^3/uL (150-450); RED BLOOD COUNT 3.63 10^6/uL (4.00-5.40)
[2020-01-04 07:31] LABS: BLOOD UREA NITROGEN 19 MG/DL (7-18); CALCIUM LEVEL 8.2 MG/DL (8.8-10.2); CARBON DIOXIDE LEVEL 31 MEQ/L (21-32); CHLORIDE LEVEL 107 MEQ/L (98-107); CREATININE FOR GFR 0.56 MG/DL (0.55-1.30); GLOMERULAR FILTRATION RATE > 60.0 (>32); GLUCOSE, FASTING 97 MG/DL (70-100); POTASSIUM SERUM 4.1 MEQ/L (3.5-5.1); SODIUM LEVEL 144 MEQ/L (136-145)
[2020-01-04] MEDS: OMEPRAZOLE 20 MG CAP PO SCH (08:37)
[2020-01-04] MEDS: carBAMazepine 200 MG TAB PO SCH (08:37)
[2020-01-04] MEDS: ASPIRIN 81 MG ENTERIC TAB PO SCH (08:37)
[2020-01-04] MEDS: amLODIPine 10 MG TAB PO SCH (08:37)
[2020-01-04] MEDS: GABAPENTIN 300 MG CAP PO SCH ×3 (08:37→20:45)
[2020-01-04] MEDS: ACETAMINOPHEN 500 MG TAB PO SCH ×3 (08:38→20:45)
[2020-01-04] MEDS: DOCUSATE SODIUM 100 MG CAP PO SCH ×2 (08:38→20:45)
[2020-01-04] MEDS: SODIUM CHLORIDE NASAL 0.65% SPRAY BTL (OCEAN) SCH ×3 (08:38→20:43)
[2020-01-04] MEDS: MULTIVITAMINS/MINERALS THERAP 1 TAB PO SCH ×2 (08:38→08:44)
[2020-01-04] MEDS: REMEDY PHYTOPLEX Z-GUARD PASTE 113GM TUBE (FROM STOREROOM PRODUCT) TOP SCH ×3 (08:39→20:43)
[2020-01-04] MEDS: POLYVINYL ALCOHOL OPHTH SOLN 15 ML(LIQUITEARS) OU SCH ×4 (08:39→20:43)
[2020-01-04] MEDS: **NOTE PATIENT COMMENT** MISC XX SCH (08:40)
[2020-01-04] MEDS: hydroCHLOROthiazide 12.5 MG CAPSULE PO SCH (11:10)
--- NOTE | 2020-01-04 11:24 | IPNPDOC ---
PM&R Progress Note DATE OF SERVICE: Jan 04, 2020 [employer] Progress Note Subjective: Patient stating she has been walking further and that her hip feels stiff at first, but seems to loosen up with ambulation. REVIEW OF SYSTEMS: The following is a completed review of systems and has been reviewed. Review of systems otherwise unremarkable. PAIN: Patient self reports left hip pain EYES: No recent vision changes EARS, NOSE, & THROAT: No throat pain, or dysphagia, or rhinorrhea CARDIOVASCULAR: Denies chest pain or palpitations PULMONARY: Denies shortness of breath GASTROINTESTINAL: Denies constipation/diarrhea GENITOURINARY: +urinary incontinence (chronic) MUSCULOSKELETAL: left hip fracture NEUROLOGICAL:denies tremor or paresthesias HEMATOLOGICAL: +anemia SKIN: left hip incision PSYCHIATRIC: Unremarkable All other review of systems found to be negative. PHYSICAL EXAMINATION: VITAL SIGNS: Please see below. GENERAL: Pleasant and cooperative. No acute distress. HEENT: PERRL. Extraocular movements intact. Clear conjunctiva CARDIOVASCULAR: Regular rate and rhythm. No murmurs, rubs, or gallops LUNGS: Clear to auscultation bilaterally. No wheezes. No rhonchi ABDOMEN: Soft, nontender, nondistended. Positive bowel sounds. Normal active bowel sounds NEUROLOGICAL: Alert and oriented times three. Cranial nerves II through XII gr ossly intact. Sensation grossly intact including 1st web space left foot EXTREMITIES: 5\\5 strength bilateral upper extremities. 5\\5 strength right lower extremity. 5/5 strength in left ankle DF/EHL/PF (limited due to surgery) (-) Mane's SKIN: left hip incision c/d/i ASSESSMENT:84-year-old F with past medical history of htn and aortic stenosis who presents status post left hip fracture PLAN: 1. Rehab- PT/OT advance agit and ADLs, strengthen/stretch/maintain ROM all 4 limbs, ambulating with RW, beginning to work on stairs 2. Cardiac- hx of aortic stenosis and HTN, c/u Amlodipine and ASA, will add back HCTZ due to mild elevation in BPs and hold ARB for now, c/u to monitor -medicine consulted to assist in overall management 3. Ortho- s/p let hip fracture with ORIF, ortho consulted, WBAT 4. Resp- encourage incentive spirometry, monitor for infection 5. Neuro- hx of trigeminal neural c/u Tegretol 6. Heme- s/p 2 units prbc for post-op anemia, will c/u to monitor and transfuse if Hgb <8 or if becomes symptomatic 7. Pain- Tylenol and gabapentin- c/u tramadol dosing q4h prn and lidoderm patch 8. GI ppx- omeprazole 9. DVT ppx- Xarelto -Dopplers negative 10. - voiding well with some chronic incontinence 11. Dispo- 01/11/20, progressing towards goals Allergies Coded Allergies: Penicillins (Verified Allergy, Severe, TONGUE SWELLING, DIZINESS, 12/25/19) Quinolones (Verified Allergy, Severe, TONGUE SWELLING,DIZINESS, 12/25/19) codeine (Verified Adverse Reaction, Mild, N/V, 12/25/19) oxycodone (Verified Adverse Reaction, Mild, "KNOCKED OUT", 12/25/19) Vital Signs Vital Signs Date Time Temp Pulse Resp B/P (MAP) Pulse Ox O2 Delivery O2 Flow Rate FiO2 01/04/20 08:37 82 149/78 01/04/20 07:22 18 01/04/20 06:00 97.7 93 Room Air 01/01/20 20:00 0.0 Laboratory Data CBC/BMP Laboratory Tests 01/04/20 06:22 Labs 24H Laboratory Tests 2 01/04/20 06:22: Immature Granulocyte % (Auto) 0.9, Neutrophils (%) (Auto) 68.6H, Lymphocytes (%) (Auto) 15.0L, Monocytes (%) (Auto) 9.4H, Eosinophils (%) (Auto) 5.4H, Basophils (%) (Auto) 0.7, Neutrophils # (Auto) 6.2, Lymphocytes # (Auto) 1.4L, Monocytes # (Auto) 0.9H, Eosinophils # (Auto) 0.5, Basophils # (Auto) 0.1, Nucleated Red Blood Cells % (auto) 0.2H, Anion Gap 6L, Glomerular Filtration Rate > 60.0, Calcium Level 8.2L Current Medications Current Medications Current Medications Medications (Trade) Dose Ordered Sig/Kareem Route PRN Reason Start Time Stop Time Status Last Admin Dose Admin Acetaminophen (Tylenol Tab) 1,000 mg TID PO 12/27/19 21:00 01/04/20 08:38 Albuterol/ Ipratropium (Duoneb (Ipr 0.5mg/Alb 2.5mg)) 3 ml RTID NEB 12/28/19 14:00 12/31/19 10:54 DC 12/30/19 18:02 Amlodipine Besylate (Norvasc) 5 mg DAILY PO 12/28/19 09:00 12/28/19 13:47 DC 12/28/19 07:47 Amlodipine Besylate (Norvasc) 10 mg DAILY PO 12/28/19 09:00 12/27/19 16:45 DC Amlodipine Besylate (Norvasc) 10 mg DAILY PO 12/29/19 09:00 01/04/20 08:37 Artificial Tears ([place]wa Tears) 2 drop QID OU 12/27/19 17:00 01/04/20 08:39 Aspirin (Ecotrin) 81 mg DAILY PO 12/28/19 09:00 01/04/20 08:37 Calcium Carbonate (Tums) 500 mg BID PRN PO INDIGESTION 12/31/19 15:00 Carbamazepine (TEGretol) 200 mg DAILY PO 12/28/19 09:00 01/04/20 08:37 Docusate Sodium (Colace) 100 mg BID PO 12/27/19 21:00 01/04/20 08:38 Ferrous Gluconate (Fergon) 324 mg BID PO 12/27/19 21:00 12/31/19 10:56 DC Gabapentin (Neurontin) 200 mg QHS PO 12/27/19 21:00 12/28/19 13:47 DC 12/27/19 20:02 Gabapentin (Neurontin) 200 mg TID PO 12/28/19 14:00 12/31/19 10:54 DC 12/31/19 07:47 Gabapentin (Neurontin) 300 mg BID@0800,1400 PO 12/31/19 14:00 01/04/20 08:37 Gabapentin (Neurontin) 600 mg QHS PO 12/31/19 21:00 01/03/20 20:34 Hydrochlorothiazide (Hydrodiuril) 12.5 mg DAILY PO 01/04/20 10:30 01/04/20 11:10 Lidocaine (Lidoderm Patch) 1 patch QHS TD 01/03/20 21:00 01/03/20 20:35 Loperamide HCl (Imodium) 2 mg ASDIRECTED PRN PO DIARRHEA 01/01/20 11:00 Multivitamins (Theragram-M) 1 tab DAILY PO 12/28/19 09:00 12/28/19 07:48 Non-Formulary Medication ( See Comment Field Below ) REMOVE LIDODERM PATCH DAILY XX 01/04/20 09:00 01/04/20 08:40 Omeprazole (PriLOSEC) 40 mg DAILY PO 12/28/19 09:00 01/04/20 08:37 Ondansetron HCl (Zofran Odt) 4 mg Q6HP PRN PO NAUSEA OR VOMITING 12/27/19 20:30 12/29/19 20:06 Rivaroxaban (Xarelto) 10 mg DAILY@1800 PO 12/27/19 18:00 01/03/20 16:42 Senna (Senokot) 1 tab QHS PO 12/27/19 21:00 01/03/20 20:34 Sodium Chloride ([place] Nasal [place]) 2 spray TID NA 12/31/19 09:00 01/04/20 08:38 Tramadol HCl (Ultram) 50 mg 0800,1200,1600,2100 PO 12/30/19 21:00 12/31/19 10:54 DC 12/31/19 07:20 Tramadol HCl (Ultram) 50 mg BID@0800,1300 PO 01/02/20 08:00 01/02/20 12:32 DC 01/02/20 07:53 Tramadol HCl (Ultram) 50 mg DAILY PRN PO X 1 DOSE BETWEEN 12AM - 4AM 12/31/19 13:30 01/02/20 12:32 DC 01/02/20 02:09 Tramadol HCl (Ultram) 50 mg Q12HP PRN PO PAIN 12/31/19 11:00 12/31/19 13:22 DC Tramadol HCl (Ultram) 50 mg Q4HP PRN PO MODERATE PAIN (PS 5-7) 12/27/19 12:30 12/28/19 13:47 DC Tramadol HCl (Ultram) 50 mg Q4HP PRN PO MODERATE PAIN >6/10 01/02/20 12:30 01/04/20 06:33 Tramadol HCl (Ultram) 50 mg TID@0800,1200,1600 PO 12/28/19 16:00 12/30/19 18:06 DC 12/30/19 17:20 Tramadol HCl (Ultram) 50 mg TID@0800,1300,1900 PO 12/31/19 19:00 01/01/20 17:58 DC 01/01/20 12:25 DESIRAE BRUCE MD Jan 04, 2020 11:24
[2020-01-04 14:00] VITALS: BP 148/68
[2020-01-04] MEDS: RIVAROXABAN 10 MG TAB (XARELTO) PO SCH (17:02)
[2020-01-04 20:00] VITALS: BP 153/70
[2020-01-04] MEDS: SENNA 8.6 MG TAB (SENOKOT) PO SCH (20:45)
[2020-01-04] MEDS: LIDOCAINE 5% (LIDODERM) PATCH TD SCH (20:46)
[2020-01-05] MEDS: traMADol 50 MG TAB PO PRN ×2 (02:18→06:24)
[2020-01-05 06:47] VITALS: BP 160/64
[2020-01-05] MEDS: ASPIRIN 81 MG ENTERIC TAB PO SCH (08:45)
[2020-01-05] MEDS: GABAPENTIN 300 MG CAP PO SCH ×3 (08:45→22:53)
[2020-01-05] MEDS: hydroCHLOROthiazide 12.5 MG CAPSULE PO SCH (08:45)
[2020-01-05] MEDS: amLODIPine 10 MG TAB PO SCH (08:46)
[2020-01-05] MEDS: MULTIVITAMINS/MINERALS THERAP 1 TAB PO SCH (08:46)
[2020-01-05] MEDS: carBAMazepine 200 MG TAB PO SCH (08:46)
[2020-01-05] MEDS: DOCUSATE SODIUM 100 MG CAP PO SCH ×2 (08:47→22:54)
[2020-01-05] MEDS: ACETAMINOPHEN 500 MG TAB PO SCH ×3 (08:47→22:55)
[2020-01-05] MEDS: REMEDY PHYTOPLEX Z-GUARD PASTE 113GM TUBE (FROM STOREROOM PRODUCT) TOP SCH ×3 (08:47→22:57)
[2020-01-05] MEDS: OMEPRAZOLE 20 MG CAP PO SCH (08:47)
[2020-01-05] MEDS: POLYVINYL ALCOHOL OPHTH SOLN 15 ML(LIQUITEARS) OU SCH ×4 (08:48→22:55)
[2020-01-05] MEDS: SODIUM CHLORIDE NASAL 0.65% SPRAY BTL (OCEAN) SCH ×3 (08:48→22:56)
[2020-01-05] MEDS: **NOTE PATIENT COMMENT** MISC XX SCH (08:48)
[2020-01-05 14:00] VITALS: BP 124/64
[2020-01-05] MEDS: RIVAROXABAN 10 MG TAB (XARELTO) PO SCH (17:13)
[2020-01-05 20:00] VITALS: BP 140/66
[2020-01-05] MEDS: SENNA 8.6 MG TAB (SENOKOT) PO SCH (22:54)
[2020-01-05] MEDS: LIDOCAINE 5% (LIDODERM) PATCH TD SCH (22:56)
[2020-01-06] MEDS: traMADol 50 MG TAB PO PRN (04:37)
[2020-01-06 06:49] VITALS: BP 159/70
[2020-01-06] MEDS: GABAPENTIN 300 MG CAP PO SCH ×3 (07:52→22:02)
[2020-01-06] MEDS: ASPIRIN 81 MG ENTERIC TAB PO SCH (07:53)
[2020-01-06] MEDS: hydroCHLOROthiazide 12.5 MG CAPSULE PO SCH (07:53)
[2020-01-06] MEDS: MULTIVITAMINS/MINERALS THERAP 1 TAB PO SCH (07:53)
[2020-01-06] MEDS: DOCUSATE SODIUM 100 MG CAP PO SCH ×2 (07:53→22:02)
[2020-01-06] MEDS: ACETAMINOPHEN 500 MG TAB PO SCH ×3 (07:55→22:03)
[2020-01-06] MEDS: OMEPRAZOLE 20 MG CAP PO SCH (07:55)
[2020-01-06] MEDS: carBAMazepine 200 MG TAB PO SCH (07:56)
[2020-01-06] MEDS: SODIUM CHLORIDE NASAL 0.65% SPRAY BTL (OCEAN) SCH ×3 (08:00→22:05)
[2020-01-06] MEDS: POLYVINYL ALCOHOL OPHTH SOLN 15 ML(LIQUITEARS) OU SCH ×4 (08:00→22:05)
[2020-01-06] MEDS: REMEDY PHYTOPLEX Z-GUARD PASTE 113GM TUBE (FROM STOREROOM PRODUCT) TOP SCH ×3 (08:00→21:00)
[2020-01-06] MEDS: **NOTE PATIENT COMMENT** MISC XX SCH (08:01)
[2020-01-06] MEDS ORDERED: VALSARTAN 80 MG TAB (DIOVAN) PO SCH (09:00)
[2020-01-06 14:00] VITALS: BP 120/58
[2020-01-06] MEDS: RIVAROXABAN 10 MG TAB (XARELTO) PO SCH (17:12)
[2020-01-06] MEDS: SENNA 8.6 MG TAB (SENOKOT) PO SCH (22:02)
[2020-01-06] MEDS: LIDOCAINE 5% (LIDODERM) PATCH TD SCH (22:03)
[2020-01-06 22:50] VITALS: BP 137/63
[2020-01-07] MEDS: traMADol 50 MG TAB PO PRN (04:54)
[2020-01-07 05:12] VITALS: BP 130/61
[2020-01-07 06:54] LABS: BASO # 0.1 10^3/uL (0.0-0.2); BASO % 0.9 % (0.0-1.0); EOS # 0.5 10^3/uL (0.0-0.5); HEMOGLOBIN 8.4 g/dl (12.0-15.5); LYMPH # 1.4 10^3/uL (1.5-5.0); LYMPH % 15.9 % (24.0-44.0); MEAN CORPUSCULAR VOLUME 73.5 fl (80.0-96.0); MONO # 0.8 10^3/uL (0.0-0.8); MONO % 8.7 % (0.0-5.0); NEUTROPHILS % 67.9 % (36.0-66.0); PLATELET COUNT, AUTOMATED 401 10^3/uL (150-450); RED BLOOD COUNT 3.81 10^6/uL (4.00-5.40); WHITE BLOOD COUNT 8.8 10^3/uL (4.0-10.0)
[2020-01-07 07:22] LABS: BLOOD UREA NITROGEN 12 MG/DL (7-18); CALCIUM LEVEL 8.2 MG/DL (8.8-10.2); CARBON DIOXIDE LEVEL 32 MEQ/L (21-32); CHLORIDE LEVEL 105 MEQ/L (98-107); CREATININE FOR GFR 0.56 MG/DL (0.55-1.30); GLOMERULAR FILTRATION RATE > 60.0 (>32); GLUCOSE, FASTING 97 MG/DL (70-100); POTASSIUM SERUM 3.8 MEQ/L (3.5-5.1); SODIUM LEVEL 141 MEQ/L (136-145)
[2020-01-07] MEDS: GABAPENTIN 300 MG CAP PO SCH ×3 (08:33→20:27)
[2020-01-07] MEDS: ASPIRIN 81 MG ENTERIC TAB PO SCH (08:33)
[2020-01-07] MEDS: VALSARTAN 80 MG TAB (DIOVAN) PO SCH (08:34)
[2020-01-07] MEDS: OMEPRAZOLE 20 MG CAP PO SCH (08:34)
[2020-01-07] MEDS: DOCUSATE SODIUM 100 MG CAP PO SCH ×2 (08:34→20:27)
[2020-01-07] MEDS: ACETAMINOPHEN 500 MG TAB PO SCH ×3 (08:34→20:28)
[2020-01-07] MEDS: carBAMazepine 200 MG TAB PO SCH (08:35)
[2020-01-07] MEDS: MULTIVITAMINS/MINERALS THERAP 1 TAB PO SCH (08:35)
[2020-01-07] MEDS: hydroCHLOROthiazide 12.5 MG CAPSULE PO SCH (08:35)
[2020-01-07] MEDS: SODIUM CHLORIDE NASAL 0.65% SPRAY BTL (OCEAN) SCH ×3 (08:36→20:29)
[2020-01-07] MEDS: REMEDY PHYTOPLEX Z-GUARD PASTE 113GM TUBE (FROM STOREROOM PRODUCT) TOP SCH ×3 (08:36→20:29)
[2020-01-07] MEDS: POLYVINYL ALCOHOL OPHTH SOLN 15 ML(LIQUITEARS) OU SCH ×4 (08:36→20:29)
[2020-01-07] MEDS: **NOTE PATIENT COMMENT** MISC XX SCH (08:36)
--- NOTE | 2020-01-07 11:53 | IPNPDOC ---
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 She states that sitting in the recliner for too long causes left hip pain. She was encouraged to librarian special collections around every 2 hours. REVIEW OF SYSTEMS: The following is a completed review of systems and has been reviewed. Review of systems otherwise unremarkable. PAIN: Patient self reports left hip pain EYES: No recent vision changes EARS, NOSE, & THROAT: No throat pain, or dysphagia, or rhinorrhea CARDIOVASCULAR: Denies chest pain or palpitations PULMONARY: Denies shortness of breath GASTROINTESTINAL: Denies constipation/diarrhea GENITOURINARY: +urinary incontinence (chronic) MUSCULOSKELETAL: left hip fracture NEUROLOGICAL:denies tremor or paresthesias HEMATOLOGICAL: +anemia SKIN: left hip incision PSYCHIATRIC: Unremarkable All other review of systems found to be negative. PHYSICAL EXAMINATION: VITAL SIGNS: Please see below. GENERAL: Pleasant and cooperative. No acute distress. HEENT: PERRL. Extraocular movements intact. Clear conjunctiva CARDIOVASCULAR: Regular rate and rhythm. No murmurs, rubs, or gallops LUNGS: Clear to auscultation bilaterally. No wheezes. No rhonchi ABDOMEN: Soft, nontender, nondistended. Positive bowel sounds. Normal active bowel sounds NEUROLOGICAL: Alert and oriented times three. Cranial nerves II through XII grossly intact. Sensation grossly intact including 1st web space left foot EXTREMITIES: 5\\5 strength bilateral upper extremities. 5\\5 strength right lower extremity. 5/5 strength in left ankle DF/EHL/PF (limited due to surgery) (-) Mane's SKIN: left hip incision c/d/i ASSESSMENT:84-year-old F with past medical history of htn and aortic stenosis who presents status post left hip fracture PLAN: 1. Rehab- PT/OT advance agit and ADLs, strengthen/stretch/maintain ROM all 4 limbs, ambulating with RW, c/u to work on stairs 2. Cardiac- hx of aortic stenosis and HTN, c/u Amlodipine and ASA,, HCTZ and ARB added back, BPs reasonably well controlled -medicine consulted to assist in overall management 3. Ortho- s/p let hip fracture with ORIF, ortho consulted, WBAT 4. Resp- encourage incentive spirometry, monitor for infection 5. Neuro- hx of trigeminal neural c/u Tegretol 6. Heme- s/p 2 units prbc for post-op anemia, will c/u to monitor and transfuse if Hgb <8 or if becomes symptomatic 7. Pain- Tylenol and gabapentin- c/u tramadol dosing q4h prn, and lidoderm patch 8. GI ppx- omeprazole 9. DVT ppx- Xarelto -Dopplers negative 10. - voiding well with some chronic incontinence 11. Dispo- 01/11/20, progressing towards goals Allergies Coded Allergies: Penicillins (Verified Allergy, Severe, TONGUE SWELLING, DIZINESS, 12/25/19) Quinolones (Verified Allergy, Severe, TONGUE SWELLING,DIZINESS, 12/25/19) codeine (Verified Adverse Reaction, Mild, N/V, 12/25/19) oxycodone (Verified Adverse Reaction, Mild, "KNOCKED OUT", 12/25/19) Vital Signs Vital Signs Date Time Temp Pulse Resp B/P (MAP) Pulse Ox O2 Delivery O2 Flow Rate FiO2 01/07/20 08:34 128/61 01/07/20 05:24 18 01/07/20 05:12 98.5 74 92 Room Air 01/01/20 20:00 0.0 Laboratory Data CBC/BMP Laboratory Tests 01/07/20 06:22 Labs 24H Laboratory Tests 2 01/07/20 06:22: Immature Granulocyte % (Auto) 0.6, Neutrophils (%) (Auto) 67.9H, Lymphocytes (%) (Auto) 15.9L, Monocytes (%) (Auto) 8.7H, Eosinophils (%) (Auto) 6.0H, Basophils (%) (Auto) 0.9, Neutrophils # (Auto) 6.0, Lymphocytes # (Auto) 1.4L, Monocytes # (Auto) 0.8, Eosinophils # (Auto) 0.5, Basophils # (Auto) 0.1, Nucleated Red Blood Cells % (auto) 0.2H, Anion Gap 4L, Glomerular Filtration Rate > 60.0, Calcium Level 8.2L Current Medications Current Medications Current Medications Medications (Trade) Dose Ordered Sig/Kareem Route PRN Reason Start Time Stop Time Status Last Admin Dose Admin Acetaminophen (Tylenol Tab) 1,000 mg TID PO 12/27/19 21:00 01/07/20 08:34 Albuterol/ Ipratropium (Duoneb (Ipr 0.5mg/Alb 2.5mg)) 3 ml RTID NEB 12/28/19 14:00 12/31/19 10:54 DC 12/30/19 18:02 Amlodipine Besylate (Norvasc) 5 mg DAILY PO 12/28/19 09:00 12/28/19 13:47 DC 12/28/19 07:47 Amlodipine Besylate (Norvasc) 10 mg DAILY PO 12/28/19 09:00 12/27/19 16:45 DC Amlodipine Besylate (Norvasc) 10 mg DAILY PO 12/29/19 09:00 01/05/20 09:33 DC 01/05/20 08:46 Artificial Tears ([place]wa Tears) 2 drop QID OU 12/27/19 17:00 01/07/20 08:36 Aspirin (Ecotrin) 81 mg DAILY PO 12/28/19 09:00 01/07/20 08:33 Calcium Carbonate (Tums) 500 mg BID PRN PO INDIGESTION 12/31/19 15:00 Carbamazepine (TEGretol) 200 mg DAILY PO 12/28/19 09:00 01/07/20 08:35 Docusate Sodium (Colace) 100 mg BID PO 12/27/19 21:00 01/07/20 08:34 Ferrous Gluconate (Fergon) 324 mg BID PO 12/27/19 21:00 12/31/19 10:56 DC Gabapentin (Neurontin) 200 mg QHS PO 12/27/19 21:00 12/28/19 13:47 DC 12/27/19 20:02 Gabapentin (Neurontin) 200 mg TID PO 12/28/19 14:00 12/31/19 10:54 DC 12/31/19 07:47 Gabapentin (Neurontin) 300 mg BID@0800,1400 PO 12/31/19 14:00 01/07/20 08:33 Gabapentin (Neurontin) 600 mg QHS PO 12/31/19 21:00 01/06/20 22:02 Hydrochlorothiazide (Hydrodiuril) 12.5 mg DAILY PO 01/04/20 10:30 01/07/20 08:35 Lidocaine (Lidoderm Patch) 1 patch QHS TD 01/03/20 21:00 01/06/20 22:03 Loperamide HCl (Imodium) 2 mg ASDIRECTED PRN PO DIARRHEA 01/01/20 11:00 Multivitamins (Theragram-M) 1 tab DAILY PO 12/28/19 09:00 01/06/20 07:53 Non-Formulary Medication ( See Comment Field Below ) REMOVE LIDODERM PATCH DAILY XX 01/04/20 09:00 01/07/20 08:36 Omeprazole (PriLOSEC) 40 mg DAILY PO 12/28/19 09:00 01/07/20 08:34 Ondansetron HCl (Zofran Odt) 4 mg Q6HP PRN PO NAUSEA OR VOMITING 12/27/19 20:30 12/29/19 20:06 Rivaroxaban (Xarelto) 10 mg DAILY@1800 PO 12/27/19 18:00 01/06/20 17:12 Senna (Senokot) 1 tab QHS PO 12/27/19 21:00 01/05/20 22:54 Sodium Chloride ([place] Nasal [place]) 2 spray TID NA 12/31/19 09:00 01/07/20 08:36 Tramadol HCl (Ultram) 50 mg 0800,1200,1600,2100 PO 12/30/19 21:00 12/31/19 10:54 DC 12/31/19 07:20 Tramadol HCl (Ultram) 50 mg BID@0800,1300 PO 01/02/20 08:00 01/02/20 12:32 DC 01/02/20 07:53 Tramadol HCl (Ultram) 50 mg DAILY PRN PO X 1 DOSE BETWEEN 12AM - 4AM 12/31/19 13:30 01/02/20 12:32 DC 01/02/20 02:09 Tramadol HCl (Ultram) 50 mg Q12HP PRN PO PAIN 12/31/19 11:00 12/31/19 13:22 DC Tramadol HCl (Ultram) 50 mg Q4HP PRN PO MODERATE PAIN (PS 5-7) 12/27/19 12:30 12/28/19 13:47 DC Tramadol HCl (Ultram) 50 mg Q4HP PRN PO MODERATE PAIN >6/10 01/02/20 12:30 9/28/20 04:54 Tramadol HCl (Ultram) 50 mg TID@0800,1200,1600 PO 12/28/19 16:00 12/30/19 18:06 DC 12/30/19 17:20 Tramadol HCl (Ultram) 50 mg TID@0800,1300,1900 PO 12/31/19 19:00 01/01/20 17:58 DC 01/01/20 12:25 Valsartan (Diovan) 80 mg DAILY PO 01/06/20 09:00 01/06/20 09:20 DC 01/06/20 07:55 Valsartan (Diovan) 160 mg DAILY PO 01/07/20 09:00 01/07/20 08:34 DESIRAE BRUCE MD Jan 07, 2020 11:53
[2020-01-07 14:00] VITALS: BP 128/60
[2020-01-07] MEDS: RIVAROXABAN 10 MG TAB (XARELTO) PO SCH (17:43)
[2020-01-07 20:12] VITALS: BP 140/63
[2020-01-07] MEDS: LIDOCAINE 5% (LIDODERM) PATCH TD SCH (20:25)
[2020-01-07] MEDS: SENNA 8.6 MG TAB (SENOKOT) PO SCH (20:27)
[2020-01-08] MEDS: traMADol 50 MG TAB PO PRN ×2 (05:50→20:38)
[2020-01-08 06:08] VITALS: BP 155/69
[2020-01-08] MEDS: MULTIVITAMINS/MINERALS THERAP 1 TAB PO SCH (08:31)
[2020-01-08] MEDS: ASPIRIN 81 MG ENTERIC TAB PO SCH (08:32)
[2020-01-08] MEDS: VALSARTAN 80 MG TAB (DIOVAN) PO SCH (08:33)
[2020-01-08] MEDS: DOCUSATE SODIUM 100 MG CAP PO SCH ×2 (08:33→20:37)
[2020-01-08] MEDS: ACETAMINOPHEN 500 MG TAB PO SCH ×3 (08:34→20:38)
[2020-01-08] MEDS: OMEPRAZOLE 20 MG CAP PO SCH (08:34)
[2020-01-08] MEDS: hydroCHLOROthiazide 12.5 MG CAPSULE PO SCH (08:34)
[2020-01-08] MEDS: carBAMazepine 200 MG TAB PO SCH (08:34)
[2020-01-08] MEDS: GABAPENTIN 300 MG CAP PO SCH ×3 (08:34→20:37)
[2020-01-08] MEDS: POLYVINYL ALCOHOL OPHTH SOLN 15 ML(LIQUITEARS) OU SCH ×4 (08:35→20:32)
[2020-01-08] MEDS: REMEDY PHYTOPLEX Z-GUARD PASTE 113GM TUBE (FROM STOREROOM PRODUCT) TOP SCH ×3 (08:35→21:00)
[2020-01-08] MEDS: SODIUM CHLORIDE NASAL 0.65% SPRAY BTL (OCEAN) SCH ×3 (08:35→20:32)
[2020-01-08] MEDS: **NOTE PATIENT COMMENT** MISC XX SCH (08:36)
[2020-01-08 14:00] VITALS: BP 149/63
--- NOTE | 2020-01-08 14:30 | IPNPDOC ---
PM&R Progress Note DATE OF SERVICE: Jan 08, 2020 Cad Technician Progress Note Subjective: Patient stating she feels well today and other than some left hip ache she is moving around well in therapy. REVIEW OF SYSTEMS: The following is a completed review of systems and has been reviewed. Review of systems otherwise unremarkable. PAIN: Patient self reports left hip pain EYES: No recent vision changes EARS, NOSE, & THROAT: No throat pain, or dysphagia, or rhinorrhea CARDIOVASCULAR: Denies chest pain or palpitations PULMONARY: Denies shortness of breath GASTROINTESTINAL: Denies constipation/diarrhea GENITOURINARY: +urinary incontinence (chronic) MUSCULOSKELETAL: left hip fracture NEUROLOGICAL:denies tremor or paresthesias HEMATOLOGICAL: +anemia SKIN: left hip incision PSYCHIATRIC: Unremarkable All other review of systems found to be negative. PHYSICAL EXAMINATION: VITAL SIGNS: Please see below. GENERAL: Pleasant and cooperative. No acute distress. HEENT: PERRL. Extraocular movements intact. Clear conjunctiva CARDIOVASCULAR: Regular rate and rhythm. No murmurs, rubs, or gallops LUNGS: Clear to auscultation bilaterally. No wheezes. No rhonchi ABDOMEN: Soft, nontender, nondistended. Positive bowel sounds. Normal active bowel sounds NEUROLOGICAL: Alert and oriented times three. Cranial nerves II through XII grossly intact. Sensation grossly intact including 1st web space left foot EXTREMITIES: 5\\5 strength bilateral upper extremities. 5\\5 strength right lower extremity. 5/5 strength in left ankle DF/EHL/PF (limited due to surgery) (-) Mane's SKIN: left hip incision c/d/i ASSESSMENT:84-year-old F with past medical history of htn and aortic stenosis who presents status post left hip fracture PLAN: 1. Rehab- PT/OT advance agit and ADLs, strengthen/stretch/maintain ROM all 4 limbs, ambulating with RW, c/u to work on stairs 2. Cardiac- hx of aortic stenosis and HTN, c/u Amlodipine and ASA,, HCTZ and ARB added back, BPs reasonably well controlled -medicine consulted to assist in overall management 3. Ortho- s/p let hip fracture with ORIF, ortho consulted, WBAT 4. Resp- encourage incentive spirometry, monitor for infection 5. Neuro- hx of trigeminal neural c/u Tegretol 6. Heme- s/p 2 units prbc for post-op anemia, will c/u to monitor and transfuse if Hgb <8 or if becomes symptomatic 7. Pain- Tylenol and gabapentin- c/u tramadol dosing q4h prn, and lidoderm patch 8. GI ppx- omeprazole 9. DVT ppx- Xarelto -Dopplers negative 10. - voiding well 11. Dispo- 01/11/20, progressing towards goals Allergies Coded Allergies: Penicillins (Verified Allergy, Severe, TONGUE SWELLING, DIZINESS, 12/25/19) Quinolones (Verified Allergy, Severe, TONGUE SWELLING,DIZINESS, 12/25/19) codeine (Verified Adverse Reaction, Mild, N/V, 12/25/19) oxycodone (Verified Adverse Reaction, Mild, "KNOCKED OUT", 12/25/19) Vital Signs Vital Signs Date Time Temp Pulse Resp B/P (MAP) Pulse Ox O2 Delivery O2 Flow Rate FiO2 01/08/20 08:33 155/69 01/08/20 06:23 18 01/08/20 06:08 98.4 87 91 Room Air Current Medications Current Medications Current Medications Medications (Trade) Dose Ordered Sig/Kareem Route PRN Reason Start Time Stop Time Status Last Admin Dose Admin Acetaminophen (Tylenol Tab) 1,000 mg TID PO 12/27/19 21:00 01/08/20 08:34 Albuterol/ Ipratropium (Duoneb (Ipr 0.5mg/Alb 2.5mg)) 3 ml RTID NEB 12/28/19 14:00 12/31/19 10:54 DC 12/30/19 18:02 Amlodipine Besylate (Norvasc) 5 mg DAILY PO 12/28/19 09:00 12/28/19 13:47 DC 12/28/19 07:47 Amlodipine Besylate (Norvasc) 10 mg DAILY PO 12/28/19 09:00 12/27/19 16:45 DC Amlodipine Besylate (Norvasc) 10 mg DAILY PO 12/29/19 09:00 01/05/20 09:33 DC 01/05/20 08:46 Artificial Tears (Akwa Tears) 2 drop QID OU 12/27/19 17:00 01/08/20 14:18 Aspirin (Ecotrin) 81 mg DAILY PO 12/28/19 09:00 9/29/20 08:32 Calcium Carbonate (Tums) 500 mg BID PRN PO INDIGESTION 12/31/19 15:00 Carbamazepine (TEGretol) 200 mg DAILY PO 12/28/19 09:00 01/08/20 08:34 Docusate Sodium (Colace) 100 mg BID PO 12/27/19 21:00 01/08/20 08:33 Ferrous Gluconate (Fergon) 324 mg BID PO 12/27/19 21:00 12/31/19 10:56 DC Gabapentin (Neurontin) 200 mg QHS PO 12/27/19 21:00 12/28/19 13:47 DC 12/27/19 20:02 Gabapentin (Neurontin) 200 mg TID PO 12/28/19 14:00 12/31/19 10:54 DC 12/31/19 07:47 Gabapentin (Neurontin) 300 mg BID@0800,1400 PO 12/31/19 14:00 01/08/20 14:18 Gabapentin (Neurontin) 600 mg QHS PO 12/31/19 21:00 01/07/20 20:27 Hydrochlorothiazide (Hydrodiuril) 12.5 mg DAILY PO 01/04/20 10:30 01/08/20 08:34 Lidocaine (Lidoderm Patch) 1 patch QHS TD 01/03/20 21:00 01/07/20 20:25 Loperamide HCl (Imodium) 2 mg ASDIRECTED PRN PO DIARRHEA 01/01/20 11:00 Multivitamins (Theragram-M) 1 tab DAILY PO 12/28/19 09:00 01/08/20 08:31 Non-Formulary Medication ( See Comment Field Below ) REMOVE LIDODERM PATCH DAILY XX 01/04/20 09:00 01/08/20 08:36 Omeprazole (PriLOSEC) 40 mg DAILY PO 12/28/19 09:00 01/08/20 08:34 Ondansetron HCl (Zofran Odt) 4 mg Q6HP PRN PO NAUSEA OR VOMITING 12/27/19 20:30 12/29/19 20:06 Rivaroxaban (Xarelto) 10 mg DAILY@1800 PO 12/27/19 18:00 01/07/20 17:43 Senna (Senokot) 1 tab QHS PO 12/27/19 21:00 01/07/20 20:27 Sodium Chloride ([place] Nasal [place]) 2 spray TID NA 12/31/19 09:00 01/08/20 08:35 Tramadol HCl (Ultram) 50 mg 0800,1200,1600,2100 PO 12/30/19 21:00 12/31/19 10:54 DC 12/31/19 07:20 Tramadol HCl (Ultram) 50 mg BID@0800,1300 PO 01/02/20 08:00 01/02/20 12:32 DC 01/02/20 07:53 Tramadol HCl (Ultram) 50 mg DAILY PRN PO X 1 DOSE BETWEEN 12AM - 4AM 12/31/19 13:30 01/02/20 12:32 DC 01/02/20 02:09 Tramadol HCl (Ultram) 50 mg Q12HP PRN PO PAIN 12/31/19 11:00 12/31/19 13:22 DC Tramadol HCl (Ultram) 50 mg Q4HP PRN PO MODERATE PAIN (PS 5-7) 12/27/19 12:30 12/28/19 13:47 DC Tramadol HCl (Ultram) 50 mg Q4HP PRN PO MODERATE PAIN >6/10 01/02/20 12:30 01/08/20 05:50 Tramadol HCl (Ultram) 50 mg TID@0800,1200,1600 PO 12/28/19 16:00 12/30/19 18:06 DC 12/30/19 17:20 Tramadol HCl (Ultram) 50 mg TID@0800,1300,1900 PO 12/31/19 19:00 01/01/20 17:58 DC 01/01/20 12:25 Valsartan (Diovan) 80 mg DAILY PO 01/06/20 09:00 01/06/20 09:20 DC 01/06/20 07:55 Valsartan (Diovan) 160 mg DAILY PO 01/07/20 09:00 01/08/20 08:33 DESIRAE BRUCE MD Jan 08, 2020 14:30
[2020-01-08] MEDS: RIVAROXABAN 10 MG TAB (XARELTO) PO SCH (16:24)
[2020-01-08 20:00] VITALS: BP 120/56
[2020-01-08] MEDS: LIDOCAINE 5% (LIDODERM) PATCH TD SCH (20:37)
[2020-01-08] MEDS: SENNA 8.6 MG TAB (SENOKOT) PO SCH (20:37)
[2020-01-09] MEDS: traMADol 50 MG TAB PO PRN ×3 (00:39→21:36)
[2020-01-09 05:17] VITALS: BP 125/58
[2020-01-09 07:27] LABS: BASO # 0.1 10^3/uL (0.0-0.2); BASO % 0.7 % (0.0-1.0); EOS # 0.6 10^3/uL (0.0-0.5); EOS % 5.9 % (0.0-3.0); HEMOGLOBIN 8.5 g/dl (12.0-15.5); LYMPH # 1.3 10^3/uL (1.5-5.0); LYMPH % 12.4 % (24.0-44.0); MEAN CORPUSCULAR HEMOGLOBIN 21.9 pg (27.0-33.0); MEAN CORPUSCULAR HGB CONC 29.3 g/dl (32.0-36.5); MEAN CORPUSCULAR VOLUME 74.7 fl (80.0-96.0); MONO # 0.8 10^3/uL (0.0-0.8); MONO % 7.2 % (0.0-5.0); NEUTROPHILS # 7.8 10^3/uL (1.5-8.5); NEUTROPHILS % 73.1 % (36.0-66.0); PLATELET COUNT, AUTOMATED 424 10^3/uL (150-450); RED BLOOD COUNT 3.88 10^6/uL (4.00-5.40); WHITE BLOOD COUNT 10.6 10^3/uL (4.0-10.0)
[2020-01-09 07:51] LABS: BLOOD UREA NITROGEN 17 MG/DL (7-18); CALCIUM LEVEL 8.3 MG/DL (8.8-10.2); CARBON DIOXIDE LEVEL 33 MEQ/L (21-32); CHLORIDE LEVEL 104 MEQ/L (98-107); CREATININE FOR GFR 0.63 MG/DL (0.55-1.30); GLOMERULAR FILTRATION RATE > 60.0 (>32); GLUCOSE, FASTING 98 MG/DL (70-100); POTASSIUM SERUM 3.9 MEQ/L (3.5-5.1); SODIUM LEVEL 139 MEQ/L (136-145)
[2020-01-09] MEDS: VALSARTAN 80 MG TAB (DIOVAN) PO SCH (08:38)
[2020-01-09] MEDS: ACETAMINOPHEN 500 MG TAB PO SCH ×3 (08:39→20:23)
[2020-01-09] MEDS: ASPIRIN 81 MG ENTERIC TAB PO SCH (08:39)
[2020-01-09] MEDS: hydroCHLOROthiazide 12.5 MG CAPSULE PO SCH (08:40)
[2020-01-09] MEDS: SODIUM CHLORIDE NASAL 0.65% SPRAY BTL (OCEAN) SCH ×3 (08:40→20:24)
[2020-01-09] MEDS: POLYVINYL ALCOHOL OPHTH SOLN 15 ML(LIQUITEARS) OU SCH ×4 (08:40→20:24)
[2020-01-09] MEDS: carBAMazepine 200 MG TAB PO SCH (08:40)
[2020-01-09] MEDS: DOCUSATE SODIUM 100 MG CAP PO SCH ×2 (08:40→20:22)
[2020-01-09] MEDS: OMEPRAZOLE 20 MG CAP PO SCH (08:40)
[2020-01-09] MEDS: REMEDY PHYTOPLEX Z-GUARD PASTE 113GM TUBE (FROM STOREROOM PRODUCT) TOP SCH ×3 (08:40→20:24)
[2020-01-09] MEDS: **NOTE PATIENT COMMENT** MISC XX SCH (08:41)
[2020-01-09] MEDS: GABAPENTIN 300 MG CAP PO SCH ×3 (08:41→20:23)
[2020-01-09] MEDS: MULTIVITAMINS/MINERALS THERAP 1 TAB PO SCH (08:43)
--- NOTE | 2020-01-09 11:44 | IPNPDOC ---
PM&R Progress Note DATE OF SERVICE: Jan 09, 2020 Shop Estimator Progress Note Subjective: Patient reporting she feels well overall, denies fevers, chills, or new weakness. REVIEW OF SYSTEMS: The following is a completed review of systems and has been reviewed. Review of systems otherwise unremarkable. PAIN: Patient self reports left hip pain EYES: No recent vision changes EARS, NOSE, & THROAT: No throat pain, or dysphagia, or rhinorrhea CARDIOVASCULAR: Denies chest pain or palpitations PULMONARY: Denies shortness of breath GASTROINTESTINAL: Denies constipation/diarrhea GENITOURINARY: +urinary incontinence (chronic) MUSCULOSKELETAL: left hip fracture NEUROLOGICAL:denies tremor or paresthesias HEMATOLOGICAL: +anemia SKIN: left hip incision PSYCHIATRIC: Unremarkable All other review of systems found to be negative. PHYSICAL EXAMINATION: VITAL SIGNS: Please see below. GENERAL: Pleasant and cooperative. No acute distress. HEENT: PERRL. Extraocular movements intact. Clear conjunctiva CARDIOVASCULAR: Regular rate and rhythm. No murmurs, rubs, or gallops LUNGS: Clear to auscultation bilaterally. No wheezes. No rhonchi ABDOMEN: Soft, nontender, nondistended. Positive bowel sounds. Normal active bowel sounds NEUROLOGICAL: Alert and oriented times three. Cranial nerves II through XII grossly intact. Sensation grossly intact including 1st web space left foot EXTREMITIES: 5\\5 strength bilateral upper extremities. 5\\5 strength right lower extremity. 5/5 strength in left ankle DF/EHL/PF (limited due to surgery) (-) Mane's SKIN: left hip incision c/d/i- leena removed ASSESSMENT:84-year-old F with past medical history of htn and aortic stenosis who presents status post left hip fracture PLAN: 1. Rehab- PT/OT advance agit and ADLs, strengthen/stretch/maintain ROM all 4 limbs, ambulating with RW, c/u to work on stairs 2. Cardiac- hx of aortic stenosis and HTN, c/u Amlodipine and ASA,, HCTZ and ARB added back, BPs reasonably well controlled -medicine consulted to assist in overall management 3. Ortho- s/p let hip fracture with ORIF, ortho consulted, WBAT- leena removed today 4. Resp- encourage incentive spirometry, monitor for infection 5. Neuro- hx of trigeminal neural c/u Tegretol 6. Heme- s/p 2 units prbc for post-op anemia, will c/u to monitor and transfuse if Hgb <8 or if becomes symptomatic 7. Pain- Tylenol and gabapentin- c/u tramadol dosing q4h prn, and lidoderm patch 8. GI ppx- omeprazole 9. DVT ppx- Xarelto -Dopplers negative 10. - voiding well 11. Dispo- 01/11/20, progressing towards goals Allergies Coded Allergies: Penicillins (Verified Allergy, Severe, TONGUE SWELLING, DIZINESS, 12/25/19) Quinolones (Verified Allergy, Severe, TONGUE SWELLING,DIZINESS, 12/25/19) codeine (Verified Adverse Reaction, Mild, N/V, 12/25/19) oxycodone (Verified Adverse Reaction, Mild, "KNOCKED OUT", 12/25/19) Vital Signs Vital Signs Date Time Temp Pulse Resp B/P (MAP) Pulse Ox O2 Delivery O2 Flow Rate FiO2 01/09/20 08:38 125/58 01/09/20 06:14 16 01/09/20 05:17 97.2 83 93 Room Air Laboratory Data CBC/BMP Laboratory Tests 01/09/20 07:06 Labs 24H Laboratory Tests 2 01/09/20 07:06: Immature Granulocyte % (Auto) 0.7, Neutrophils (%) (Auto) 73.1H, Lymphocytes (%) (Auto) 12.4L, Monocytes (%) (Auto) 7.2H, Eosinophils (%) (Auto) 5.9H, Basophils (%) (Auto) 0.7, Neutrophils # (Auto) 7.8, Lymphocytes # (Auto) 1.3L, Monocytes # (Auto) 0.8, Eosinophils # (Auto) 0.6H, Basophils # (Auto) 0.1, Nucleated Red Blood Cells % (auto) 0.2H, Anion Gap 2L, Glomerular Filtration Rate > 60.0, Calcium Level 8.3L Current Medications Current Medications Current Medications Medications (Trade) Dose Ordered Sig/Kareem Route PRN Reason Start Time Stop Time Status Last Admin Dose Admin Acetaminophen (Tylenol Tab) 1,000 mg TID PO 12/27/19 21:00 01/09/20 08:39 Albuterol/ Ipratropium (Duoneb (Ipr 0.5mg/Alb 2.5mg)) 3 ml RTID NEB 12/28/19 14:00 12/31/19 10:54 DC 12/30/19 18:02 Amlodipine Besylate (Norvasc) 5 mg DAILY PO 12/28/19 09:00 12/28/19 13:47 DC 12/28/19 07:47 Amlodipine Besylate (Norvasc) 10 mg DAILY PO 12/28/19 09:00 12/27/19 16:45 DC Amlodipine Besylate (Norvasc) 10 mg DAILY PO 12/29/19 09:00 01/05/20 09:33 DC 01/05/20 08:46 Artificial Tears (Akwa Tears) 2 drop QID OU 12/27/19 17:00 01/09/20 08:40 Aspirin (Ecotrin) 81 mg DAILY PO 12/28/19 09:00 01/09/20 08:39 Calcium Carbonate (Tums) 500 mg BID PRN PO INDIGESTION 12/31/19 15:00 Carbamazepine (TEGretol) 200 mg DAILY PO 12/28/19 09:00 01/09/20 08:40 Docusate Sodium (Colace) 100 mg BID PO 12/27/19 21:00 01/09/20 08:40 Ferrous Gluconate (Fergon) 324 mg BID PO 12/27/19 21:00 12/31/19 10:56 DC Gabapentin (Neurontin) 200 mg QHS PO 12/27/19 21:00 12/28/19 13:47 DC 12/27/19 20:02 Gabapentin (Neurontin) 200 mg TID PO 12/28/19 14:00 12/31/19 10:54 DC 12/31/19 07:47 Gabapentin (Neurontin) 300 mg BID@0800,1400 PO 12/31/19 14:00 01/09/20 08:41 Gabapentin (Neurontin) 600 mg QHS PO 12/31/19 21:00 01/08/20 20:37 Hydrochlorothiazide (Hydrodiuril) 12.5 mg DAILY PO 01/04/20 10:30 01/09/20 08:40 Lidocaine (Lidoderm Patch) 1 patch QHS TD 01/03/20 21:00 01/08/20 20:37 Loperamide HCl (Imodium) 2 mg ASDIRECTED PRN PO DIARRHEA 01/01/20 11:00 Multivitamins (Theragram-M) 1 tab DAILY PO 12/28/19 09:00 01/08/20 08:31 Non-Formulary Medication ( See Comment Field Below ) REMOVE LIDODERM PATCH DAILY XX 01/04/20 09:00 01/09/20 08:41 Omeprazole (PriLOSEC) 40 mg DAILY PO 12/28/19 09:00 01/09/20 08:40 Ondansetron HCl (Zofran Odt) 4 mg Q6HP PRN PO NAUSEA OR VOMITING 12/27/19 20:30 12/29/19 20:06 Rivaroxaban (Xarelto) 10 mg DAILY@1800 PO 12/27/19 18:00 01/08/20 16:24 Senna (Senokot) 1 tab QHS PO 12/27/19 21:00 01/08/20 20:37 Sodium Chloride ([place] Nasal [place]) 2 spray TID NA 12/31/19 09:00 01/09/20 08:40 Tramadol HCl (Ultram) 50 mg 0800,1200,1600,2100 PO 12/30/19 21:00 12/31/19 10:54 DC 12/31/19 07:20 Tramadol HCl (Ultram) 50 mg BID@0800,1300 PO 01/02/20 08:00 01/02/20 12:32 DC 01/02/20 07:53 Tramadol HCl (Ultram) 50 mg DAILY PRN PO X 1 DOSE BETWEEN 12AM - 4AM 12/31/19 13:30 01/02/20 12:32 DC 01/02/20 02:09 Tramadol HCl (Ultram) 50 mg Q12HP PRN PO PAIN 12/31/19 11:00 12/31/19 13:22 DC Tramadol HCl (Ultram) 50 mg Q4HP PRN PO MODERATE PAIN (PS 5-7) 12/27/19 12:30 12/28/19 13:47 DC Tramadol HCl (Ultram) 50 mg Q4HP PRN PO MODERATE PAIN >6/10 01/02/20 12:30 01/09/20 05:15 Tramadol HCl (Ultram) 50 mg TID@0800,1200,1600 PO 12/28/19 16:00 12/30/19 18:06 DC 12/30/19 17:20 Tramadol HCl (Ultram) 50 mg TID@0800,1300,1900 PO 12/31/19 19:00 01/01/20 17:58 DC 01/01/20 12:25 Valsartan (Diovan) 80 mg DAILY PO 01/06/20 09:00 01/06/20 09:20 DC 01/06/20 07:55 Valsartan (Diovan) 160 mg DAILY PO 01/07/20 09:00 01/09/20 08:38 DESIRAE BRUCE MD Jan 09, 2020 11:44
[2020-01-09] MEDS: RIVAROXABAN 10 MG TAB (XARELTO) PO SCH (16:45)
[2020-01-09 20:00] VITALS: BP 128/58
[2020-01-09] MEDS: LIDOCAINE 5% (LIDODERM) PATCH TD SCH (20:22)
[2020-01-09] MEDS: SENNA 8.6 MG TAB (SENOKOT) PO SCH (20:31)
[2020-01-10] MEDS: traMADol 50 MG TAB PO PRN ×3 (05:13→23:27)
[2020-01-10 06:13] VITALS: BP 133/60
[2020-01-10] MEDS: OMEPRAZOLE 20 MG CAP PO SCH (08:17)
[2020-01-10] MEDS: ASPIRIN 81 MG ENTERIC TAB PO SCH (08:17)
[2020-01-10] MEDS: VALSARTAN 80 MG TAB (DIOVAN) PO SCH (08:17)
[2020-01-10] MEDS: carBAMazepine 200 MG TAB PO SCH (08:17)
[2020-01-10] MEDS: hydroCHLOROthiazide 12.5 MG CAPSULE PO SCH (08:17)
[2020-01-10] MEDS: DOCUSATE SODIUM 100 MG CAP PO SCH ×2 (08:17→20:18)
[2020-01-10] MEDS: SODIUM CHLORIDE NASAL 0.65% SPRAY BTL (OCEAN) SCH ×3 (08:18→20:21)
[2020-01-10] MEDS: POLYVINYL ALCOHOL OPHTH SOLN 15 ML(LIQUITEARS) OU SCH ×4 (08:18→20:21)
[2020-01-10] MEDS: MULTIVITAMINS/MINERALS THERAP 1 TAB PO SCH (08:18)
[2020-01-10] MEDS: ACETAMINOPHEN 500 MG TAB PO SCH ×3 (08:18→20:19)
[2020-01-10] MEDS: REMEDY PHYTOPLEX Z-GUARD PASTE 113GM TUBE (FROM STOREROOM PRODUCT) TOP SCH ×4 (08:18→20:25)
[2020-01-10] MEDS: GABAPENTIN 300 MG CAP PO SCH ×3 (08:19→20:19)
[2020-01-10] MEDS: **NOTE PATIENT COMMENT** MISC XX SCH (08:20)
[2020-01-10] MEDS ORDERED: VALS160T2 PO (09:57)
[2020-01-10] MEDS ORDERED: ACET-683 PO (09:57)
[2020-01-10] MEDS ORDERED: CARB20TA PO (09:57)
[2020-01-10] MEDS ORDERED: GABA-843 PO ×2 (09:57)
[2020-01-10] MEDS ORDERED: TRAM50TA2 PO (09:57)
[2020-01-10] MEDS ORDERED: ASPI81TAEC PO (09:57)
[2020-01-10] MEDS ORDERED: OMEP40CA97 PO (09:57)
[2020-01-10] MEDS ORDERED: ASPI-312 PO (12:15)
[2020-01-10 14:00] VITALS: BP 134/58
[2020-01-10] MEDS: RIVAROXABAN 10 MG TAB (XARELTO) PO SCH (16:57)
[2020-01-10 20:00] VITALS: BP 127/61
[2020-01-10] MEDS: SENNA 8.6 MG TAB (SENOKOT) PO SCH (20:19)
[2020-01-10] MEDS: LIDOCAINE 5% (LIDODERM) PATCH TD SCH (20:20)
[2020-01-11] MEDS: traMADol 50 MG TAB PO PRN ×2 (05:36→12:25)
[2020-01-11 05:51] VITALS: BP 139/62
[2020-01-11] MEDS: SODIUM CHLORIDE NASAL 0.65% SPRAY BTL (OCEAN) SCH (09:00)
[2020-01-11] MEDS: REMEDY PHYTOPLEX Z-GUARD PASTE 113GM TUBE (FROM STOREROOM PRODUCT) TOP SCH (09:00)
[2020-01-11] MEDS: POLYVINYL ALCOHOL OPHTH SOLN 15 ML(LIQUITEARS) OU SCH (09:00)
[2020-01-11] MEDS: hydroCHLOROthiazide 12.5 MG CAPSULE PO SCH (09:30)
[2020-01-11] MEDS: carBAMazepine 200 MG TAB PO SCH (09:30)
[2020-01-11] MEDS: MULTIVITAMINS/MINERALS THERAP 1 TAB PO SCH (09:30)
[2020-01-11] MEDS: ASPIRIN 81 MG ENTERIC TAB PO SCH (09:30)
[2020-01-11] MEDS: OMEPRAZOLE 20 MG CAP PO SCH (09:30)
[2020-01-11] MEDS: GABAPENTIN 300 MG CAP PO SCH (09:30)
[2020-01-11] MEDS: DOCUSATE SODIUM 100 MG CAP PO SCH (09:30)
[2020-01-11 09:31] VITALS: BP 139/62
[2020-01-11] MEDS: VALSARTAN 80 MG TAB (DIOVAN) PO SCH (09:31)
[2020-01-11] MEDS: ACETAMINOPHEN 500 MG TAB PO SCH (09:32)
[2020-01-11] MEDS: **NOTE PATIENT COMMENT** MISC XX SCH (09:38)
--- NOTE | 2020-01-11 10:15 | IPNPDOC ---
PM&R Progress Note DATE OF SERVICE: Jan 10, 2020 [employer] Progress Note Subjective: Patient concnerned over cost of XArelto for her DVT prophylaxis, but was told she can take baby aspirin twice a day instead. REVIEW OF SYSTEMS: The following is a completed review of systems and has been reviewed. Review of systems otherwise unremarkable. PAIN: Patient self reports left hip pain EYES: No recent vision changes EARS, NOSE, & THROAT: No throat pain, or dysphagia, or rhinorrhea CARDIOVASCULAR: Denies chest pain or palpitations PULMONARY: Denies shortness of breath GASTROINTESTINAL: Denies constipation/diarrhea GENITOURINARY: +urinary incontinence (chronic) MUSCULOSKELETAL: left hip fracture NEUROLOGICAL:denies tremor or paresthesias HEMATOLOGICAL: +anemia SKIN: left hip incision PSYCHIATRIC: Unremarkable All other review of systems found to be negative. PHYSICAL EXAMINATION: VITAL SIGNS: Please see below. GENERAL: Pleasant and cooperative. No acute distress. HEENT: PERRL. Extraocular movements intact. Clear conjunctiva CARDIOVASCULAR: Regular rate and rhythm. No murmurs, rubs, or gallops LUNGS: Clear to auscultation bilaterally. No wheezes. No rhonchi ABDOMEN: Soft, nontender, nondistended. Positive bowel sounds. Normal active bowel sounds NEUROLOGICAL: Alert and oriented times three. Cranial nerves II through XII grossly intact. Sensation grossly intact including 1st web space left foot EXTREMITIES: 5\\5 strength bilateral upper extremities. 5\\5 strength right lower extremity. 5/5 strength in left ankle DF/EHL/PF (limited due to surgery) (-) Mane's SKIN: left hip incision c/d/i- leena removed ASSESSMENT:84-year-old F with past medical history of htn and aortic stenosis who presents status post left hip fracture PLAN: 1. Rehab- PT/OT advance agit and ADLs, strengthen/stretch/maintain ROM all 4 limbs, ambulating with RW, c/u to work on stairs 2. Cardiac- hx of aortic stenosis and HTN, c/u Amlodipine and ASA,, HCTZ and ARB added back, BPs reasonably well controlled -medicine consulted to assist in overall management 3. Ortho- s/p let hip fracture with ORIF, ortho consulted, WBAT- leena removed 4. Resp- encourage incentive spirometry, monitor for infection 5. Neuro- hx of trigeminal neural c/u Tegretol 6. Heme- s/p 2 units prbc for post-op anemia, will c/u to monitor and transfuse if Hgb <8 or if becomes symptomatic 7. Pain- Tylenol and gabapentin- c/u tramadol dosing q4h prn, and lidoderm patch 8. GI ppx- omeprazole 9. DVT ppx- Xarelto, will be switched to ASA 81mg BID as more affordable, ortho aware and agrees with management -Dopplers negative 10. - voiding well 11. Dispo- 01/11/20, progressing towards goals Allergies Coded Allergies: Penicillins (Verified Allergy, Severe, TONGUE SWELLING, DIZINESS, 12/25/19) Quinolones (Verified Allergy, Severe, TONGUE SWELLING,DIZINESS, 12/25/19) codeine (Verified Adverse Reaction, Mild, N/V, 12/25/19) oxycodone (Verified Adverse Reaction, Mild, "KNOCKED OUT", 12/25/19) Vital Signs Vital Signs Date Time Temp Pulse Resp B/P (MAP) Pulse Ox O2 Delivery O2 Flow Rate FiO2 01/11/20 09:31 139/62 01/11/20 06:23 16 01/11/20 05:51 98.1 85 92 Room Air Current Medications Current Medications Current Medications Medications (Trade) Dose Ordered Sig/Kareem Route PRN Reason Start Time Stop Time Status Last Admin Dose Admin Acetaminophen (Tylenol Tab) 1,000 mg TID PO 12/27/19 21:00 01/11/20 09:32 Albuterol/ Ipratropium (Duoneb (Ipr 0.5mg/Alb 2.5mg)) 3 ml RTID NEB 12/28/19 14:00 12/31/19 10:54 DC 12/30/19 18:02 Amlodipine Besylate (Norvasc) 5 mg DAILY PO 12/28/19 09:00 12/28/19 13:47 DC 12/28/19 07:47 Amlodipine Besylate (Norvasc) 10 mg DAILY PO 12/28/19 09:00 12/27/19 16:45 DC Amlodipine Besylate (Norvasc) 10 mg DAILY PO 12/29/19 09:00 01/05/20 09:33 DC 01/05/20 08:46 Artificial Tears (Akwa Tears) 2 drop QID OU 12/27/19 17:00 01/10/20 20:21 Aspirin (Ecotrin) 81 mg DAILY PO 12/28/19 09:00 01/11/20 09:30 Calcium Carbonate (Tums) 500 mg BID PRN PO INDIGESTION 12/31/19 15:00 Carbamazepine (TEGretol) 200 mg DAILY PO 12/28/19 09:00 01/11/20 09:30 Docusate Sodium (Colace) 100 mg BID PO 12/27/19 21:00 01/11/20 09:30 Ferrous Gluconate (Fergon) 324 mg BID PO 12/27/19 21:00 12/31/19 10:56 DC Gabapentin (Neurontin) 200 mg QHS PO 12/27/19 21:00 12/28/19 13:47 DC 12/27/19 20:02 Gabapentin (Neurontin) 200 mg TID PO 12/28/19 14:00 12/31/19 10:54 DC 12/31/19 07:47 Gabapentin (Neurontin) 300 mg BID@0800,1400 PO 12/31/19 14:00 01/11/20 09:30 Gabapentin (Neurontin) 600 mg QHS PO 12/31/19 21:00 01/10/20 20:19 Hydrochlorothiazide (Hydrodiuril) 12.5 mg DAILY PO 01/04/20 10:30 01/11/20 09:30 Lidocaine (Lidoderm Patch) 1 patch QHS TD 01/03/20 21:00 01/10/20 20:20 Loperamide HCl (Imodium) 2 mg ASDIRECTED PRN PO DIARRHEA 01/01/20 11:00 Multivitamins (Theragram-M) 1 tab DAILY PO 12/28/19 09:00 01/11/20 09:30 Non-Formulary Medication ( See Comment Field Below ) REMOVE LIDODERM PATCH DAILY XX 01/04/20 09:00 01/11/20 09:38 Omeprazole (PriLOSEC) 40 mg DAILY PO 12/28/19 09:00 01/11/20 09:30 Ondansetron HCl (Zofran Odt) 4 mg Q6HP PRN PO NAUSEA OR VOMITING 12/27/19 20:30 12/29/19 20:06 Rivaroxaban (Xarelto) 10 mg DAILY@1800 PO 12/27/19 18:00 01/10/20 16:57 Senna (Senokot) 1 tab QHS PO 12/27/19 21:00 01/10/20 20:19 Sodium Chloride ([place] Nasal [place]) 2 spray TID NA 12/31/19 09:00 01/10/20 20:21 Tramadol HCl (Ultram) 50 mg 0800,1200,1600,2100 PO 12/30/19 21:00 12/31/19 10:54 DC 12/31/19 07:20 Tramadol HCl (Ultram) 50 mg BID@0800,1300 PO 01/02/20 08:00 01/02/20 12:32 DC 01/02/20 07:53 Tramadol HCl (Ultram) 50 mg DAILY PRN PO X 1 DOSE BETWEEN 12AM - 4AM 12/31/19 13:30 01/02/20 12:32 DC 01/02/20 02:09 Tramadol HCl (Ultram) 50 mg Q12HP PRN PO PAIN 12/31/19 11:00 12/31/19 13:22 DC Tramadol HCl (Ultram) 50 mg Q4HP PRN PO MODERATE PAIN (PS 5-7) 12/27/19 12:30 12/28/19 13:47 DC Tramadol HCl (Ultram) 50 mg Q4HP PRN PO MODERATE PAIN >6/10 01/02/20 12:30 01/11/20 05:36 Tramadol HCl (Ultram) 50 mg TID@0800,1200,1600 PO 12/28/19 16:00 12/30/19 18:06 DC 12/30/19 17:20 Tramadol HCl (Ultram) 50 mg TID@0800,1300,1900 PO 12/31/19 19:00 01/01/20 17:58 DC 01/01/20 12:25 Valsartan (Diovan) 80 mg DAILY PO 01/06/20 09:00 01/06/20 09:20 DC 01/06/20 07:55 Valsartan (Diovan) 160 mg DAILY PO 01/07/20 09:00 01/11/20 09:31 DESIRAE BRUCE MD Jan 11, 2020 10:15
--- NOTE | 2020-01-15 13:19 | PMRDS ---
DATE OF ADMISSION: 12/27/2019 DATE OF DISCHARGE: 01/11/2020 CHIEF COMPLAINT/DISCHARGE DIAGNOSIS: 1. Left hip fracture. HISTORY OF PRESENT ILLNESS: This is an 84-year-old female with a past medical history of OA, hypertension, hyperlipidemia, trigeminal neuralgia, aortic stenosis, GERD, who fell at home without syncopal symptoms and presented with the [facility] on 12/25/2019 complaining of pain and difficulty walking. Hip x-ray showed acute proximal left femoral fracture for which she was evaluated by Orthopedics who performed an ORIF on 12/26/2019 complicated by postop anemia requiring two PRBC blood transfusions. She had soft blood pressures requiring IVF and difficulty with pain control. She was evaluated by therapy and found to have significant impairment in mobility and ADLs, was deemed to be medically appropriate for discharge to the ARU on 12/27/2019. On initial evaluation, the patient reports she has a prolapsed rectum and bladder and she has an urge to urinate often and wants to be able to use the bedpan. She was encouraged to begin working on bedside transfers to a commode and therapy in order to improve her safety and efficiency for toileting. PAST MEDICAL HISTORY: As per HPI. HOSPITAL COURSE: The patient was admitted and enrolled in a comprehensive PT and OT program. She received 24 hour nursing supervision and weekly team meetings were held to discuss her progress. The patient was initially started on amlodipine and aspirin for her elevated blood pressures and gradually her home medications were added back for better blood pressure support. The patients hemoglobin and hematocrit remained stable during her hospital course and for pain relief she requested Tramadol and did very well on Gabapentin and Tylenol dosing. She made consistent and steady gains in therapy. She was noted to have slightly lower readings on her pulse oximetry, however reported that she has had many years of low saturations without any respiratory symptoms. She was deemed to be medically and functionally stable to return home with help. DISCHARGE MEDICATIONS: As per instructions. FUNCTIONAL HISTORY ON DISCHARGE: The patient was modified independent, able to ambulate 75 feet and negotiate stairs at a contact guard assist level. Thank you for this referral. [facility] HOSPITALEdgardo
== END 2020-01-11 13:00 | disposition home health service (06) | DRG 561 ==
LOC: M PM&R 15:30
PROVIDERS: ADMIT Physical Medicine & Rehabilitation; ATTEND Physical Medicine & Rehabilitation
DX: S72.002D Fracture of unspecified part of neck of left femur, subsequent encounter for closed fracture with routine healing (principal); W19.XXXD Unspecified fall, subsequent encounter; Y92.009 Unspecified place in unspecified non-institutional (private) residence as the place of occurrence of the external cause; M19.90 Unspecified osteoarthritis, unspecified site; E78.5 Hyperlipidemia, unspecified; I10 Essential (primary) hypertension; G50.0 Trigeminal neuralgia; I35.0 Nonrheumatic aortic (valve) stenosis; K21.9 Gastro-esophageal reflux disease without esophagitis; Z79.82 Long term (current) use of aspirin; Z79.01 Long term (current) use of anticoagulants; Z79.899 Other long term (current) drug therapy; Z88.0 Allergy status to penicillin; Z88.5 Allergy status to narcotic agent

== ENCOUNTER → 2020-11-27 | Outpatient (REF) | payer MEDICARE ==
[~2020-11-27] MED LIST changes: +ACET-683 PO; +ASPI-312 PO; +ASPI-569 PO; +CARB20TA PO; +ERGO500029 PO; +GABA-282 PO; +OMEP40CA4 PO; -OMEP40CA97 PO; +TRAM50TA2 PO; -VITA50005 PO; +XARE10TA PO
== END ==
LOC: M LAB REF 11:08
PROVIDERS: ATTEND Family Medicine
DX: G50.0 Trigeminal neuralgia (principal)

== ENCOUNTER → 2021-01-01 | Outpatient (CLI) | payer MEDICARE ==
--- NOTE | 2021-01-01 15:44 | REP ---
INDICATION: PAIN. COMPARISON: December 25, 2019 and November 27, 2019. TECHNIQUE: Four views. FINDINGS: There is no evidence of left-sided pneumothorax, infiltrate, or hydrothorax. There is diffuse osteopenia. Cardiomegaly is observed. There is evidence of loss of vertebral body height at what appears to be the T7 vertebral body. This is a new finding in the thoracic spine when compared with the 12/25/2019 prior chest x-ray. There is a metallic device projecting over the heart on the left. Multiple views of the left ribcage show cyst fairly smooth cortical deformity of the anterior segment of the left 5th rib which appears to be an old fracture. There is a similar adjacent deformity of the left 4th rib. This appears to be old as well. There is diffuse osteoporosis. No definite acute rib fracture is appreciated. There is a old appearing deformity of the left 11th lateral rib segment as well. IMPRESSION: No definite acute rib fracture. Osteoporosis. Old left-sided rib fractures as above. Interval loss of vertebral body height at T7 question recent osteoporotic compression fracture deformity. <Electronically signed by Shiv Guerra > 01/01/21 [id number]
== END ==
LOC: M WUC 14:10
PROVIDERS: ATTEND Family Medicine
DX: M81.0 Age-related osteoporosis without current pathological fracture (principal)

== ENCOUNTER → 2021-05-29 | Outpatient (REF) | payer MEDICARE | LOC: M LAB REF 11:49 | PROVIDERS: ATTEND Family Medicine | DX: G50.0 Trigeminal neuralgia (principal) ==

== ENCOUNTER → 2022-08-18 | Outpatient (REF) | payer MEDICARE, OTHER | LOC: M LAB REF 16:26 | PROVIDERS: ATTEND Family Medicine | DX: G50.0 Trigeminal neuralgia (principal); D33.3 Benign neoplasm of cranial nerves; Z79.899 Other long term (current) drug therapy ==

== ENCOUNTER 2022-09-30 16:33 | Day surgery (SDC) | payer OTHER ==
[~2022-09-30] VITALS: Ht 160 cm; Wt 67.7 kg
[2022-09-30] MEDS ORDERED: ATROPINE SULF 1MG/10ML SYRINGE IV STA (16:59)
[2022-09-30] MEDS ORDERED: ATROPINE SULF 1MG/10ML SYRINGE As Ordered ONE (16:59)
[2022-09-30] MEDS: DOPamine HCL 400 MG in IV 1 EA IV SCH ×2 (17:18→19:15)
[2022-09-30 17:40] LABS: BASO # 0.1 10^3/uL (0.0-0.2); BASO % 0.3 % (0.0-1.0); EOS % 0.2 % (0.0-3.0); HEMATOCRIT 34.9 % (36.0-47.0); HEMOGLOBIN 10.7 g/dl (12.0-15.5); LYMPH # 1.3 10^3/uL (1.5-5.0); LYMPH % 8.6 % (24.0-44.0); MEAN CORPUSCULAR HEMOGLOBIN 20.9 pg (27.0-33.0); MEAN CORPUSCULAR HGB CONC 30.7 g/dl (32.0-36.5); MEAN CORPUSCULAR VOLUME 68.2 fl (80.0-96.0); MONO # 1.5 10^3/uL (0.0-0.8); NEUTROPHILS # 11.7 10^3/uL (1.5-8.5); NEUTROPHILS % 79.8 % (36.0-66.0); PLATELET COUNT, AUTOMATED 211 10^3/uL (150-450); RED BLOOD COUNT 5.12 10^6/uL (4.00-5.40); WHITE BLOOD COUNT 14.7 10^3/uL (4.0-10.0)
[2022-09-30 17:51] LABS: MONO % 10.5 % (2.0-8.0)
[2022-09-30 17:52] LABS: INR 1.14; PROTHROMBIN TIME 14.8 SECONDS (12.5-14.5)
[2022-09-30 17:53] LABS: PARTIAL THROMBOPLASTIN TIME 26.4 SECONDS (24.8-34.2)
[2022-09-30] MEDS ORDERED: AMLO1TAB25 (17:53)
[2022-09-30] MEDS ORDERED: ASPI81CH33 PO (17:53)
[2022-09-30] MEDS ORDERED: OMEP40CA5 (17:53)
[2022-09-30] MEDS ORDERED: LIDOCAINE 1% SDV 30ML VIAL As Ordered ONE (18:23)
[2022-09-30] MEDS ORDERED: AMIODARONE HCL 360 MG/200 ML PREMIXED BAG (NEXTERONE) As Ordered ONE (18:23)
[2022-09-30] MEDS ORDERED: ISOVUE-300 61% 100ML VIAL As Ordered ONE (18:23)
[2022-09-30] MEDS ORDERED: VANCOMYCIN 1000MG/20ML VIAL As Ordered ONE (18:26)
[2022-09-30] MEDS ORDERED: propofoL 200 MG/20 ML VIAL As Ordered ONE (19:29)
[2022-09-30] MEDS ORDERED: fentaNYL 100 MCG/2 ML INJECTION IV PRN (19:35)
[2022-09-30] MEDS ORDERED: LR 1,000 ML IV SCH (19:35)
[2022-09-30] MEDS ORDERED: ONDANSETRON 4MG 2ML VIAL IV PRN (19:35)
[2022-09-30] MEDS ORDERED: ACETAMINOPHEN TAB 650MG DOSE (2X325MG) PO PRN (21:40)
[2022-09-30 23:32] VITALS: BP 119/60; TEMP 97.6; O2SAT 98
[2022-09-30] MEDS ORDERED: VALS160T2 PO (23:38)
[2022-09-30] MEDS ORDERED: AMLO1TAB25 PO (23:38)
[2022-09-30] MEDS ORDERED: OMEP40CA5 PO (23:38)
[2022-09-30] MEDS ORDERED: ASPI-161 PO (23:38)
[2022-09-30] MEDS ORDERED: HOME MED LIST COMPLETE! XX SCH (23:40)
[2022-10-01 00:34] VITALS: BP 104/56; TEMP 97.6; O2SAT 98
[2022-10-01 01:52] VITALS: BP 109/55; TEMP 97.5; O2SAT 97
[2022-10-01] MEDS ORDERED: VANCOMYCIN HCL 500 MG in D5W MINI-BAG PLUS 100 ML IV ONE (04:00)
[2022-10-01 04:16] VITALS: BP 110/57; TEMP 97.8; O2SAT 96
[2022-10-01] MEDS ORDERED: ASPIRIN 81MG ENTERIC TABLET PO SCH (05:00)
[2022-10-01] MEDS ORDERED: CLOPIDOGREL 75 MG TAB PO SCH (05:00)
[2022-10-01 07:26] VITALS: BP 111/55; TEMP 97.1; O2SAT 97
[2022-10-01] MEDS ORDERED: D5W/0.45% SODIUM CHLORIDE 1,000 ML IV SCH (09:00)
== END 2022-10-01 09:11 | disposition other institution (70) ==
LOC: EDBD 16:33 → M ED 16:33 → M SDC 18:00 → M ED 18:00 → ENRESERV 19:41 → M PCU 20:59 → M SDC 10-01 09:11
PROVIDERS: ATTEND Internal Medicine Cardiovascular Disease
DX: I44.2 Atrioventricular block, complete (principal); R55 Syncope and collapse; R94.31 Abnormal electrocardiogram [ECG] [EKG]; I11.9 Hypertensive heart disease without heart failure; I25.10 Atherosclerotic heart disease of native coronary artery without angina pectoris; J45.909 Unspecified asthma, uncomplicated; D64.9 Anemia, unspecified; G50.0 Trigeminal neuralgia; Z79.899 Other long term (current) drug therapy; I25.2 Old myocardial infarction; Z79.82 Long term (current) use of aspirin; Z88.0 Allergy status to penicillin; Z88.5 Allergy status to narcotic agent; Z88.8 Allergy status to other drugs, medicaments and biological substances
CPT/HCPCS: 33208; 71045; 71046; 76000; 80047; 84484; 85025; 85610; 85730; 86850; 86900; 86901; 87635; 93005; 96365; 96375; 99284; C1785; C1898; J0283; J0461; J1265

== ENCOUNTER → 2022-10-14 | Outpatient (REF) | payer OTHER ==
[~2022-10-14] MED LIST changes: +AMLO1TAB25; +ASPI81CH33 PO; +OMEP40CA5; +OMEP40CA5 PO
== END ==
LOC: M LAB REF 12:11
PROVIDERS: ATTEND Family Medicine
DX: I50.21 Acute systolic (congestive) heart failure (principal)

== ENCOUNTER 2022-10-22 15:38 | Emergency (ER) | payer OTHER ==
[~2022-10-22] VITALS: Ht 160 cm; Wt 63.2 kg
[2022-10-22 19:25] LABS: BASO # 0.1 10^3/uL (0.0-0.2); BASO % 0.8 % (0.0-1.0); EOS # 0.4 10^3/uL (0.0-0.5); EOS % 4.3 % (0.0-3.0); HEMATOCRIT 32.7 % (36.0-47.0); LYMPH # 1.5 10^3/uL (1.5-5.0); LYMPH % 17.5 % (24.0-44.0); MEAN CORPUSCULAR HGB CONC 30.6 g/dl (32.0-36.5); MEAN CORPUSCULAR VOLUME 68.6 fl (80.0-96.0); MONO # 0.8 10^3/uL (0.0-0.8); MONO % 9.3 % (2.0-8.0); NEUTROPHILS # 5.7 10^3/uL (1.5-8.5); NEUTROPHILS % 67.9 % (36.0-66.0); PLATELET COUNT, AUTOMATED 185 10^3/uL (150-450); RED BLOOD COUNT 4.77 10^6/uL (4.00-5.40); WHITE BLOOD COUNT 8.5 10^3/uL (4.0-10.0)
[2022-10-22 19:36] LABS: INR 0.98; LIPASE 36 U/L (12-53); PARTIAL THROMBOPLASTIN TIME 25.8 SECONDS (24.8-34.2); PROTHROMBIN TIME 13.2 SECONDS (12.5-14.5)
[2022-10-22 19:39] LABS: ALBUMIN 2.7 G/DL (3.2-5.2); ALKALINE PHOSPHATASE 90 U/L (46-116); ALT/SGPT < 9 U/L (7.0-40); AST/SGOT 10 U/L (<34); BILIRUBIN,DIRECT 0.2 MG/DL (<0.4); BILIRUBIN,TOTAL 0.5 MG/DL (0.3-1.2); BLOOD UREA NITROGEN 22 MG/DL (9-23); CALCIUM LEVEL 8.4 MG/DL (8.3-10.6); CARBON DIOXIDE LEVEL 35 MMOL/L (20-31); CHLORIDE LEVEL 103 MMOL/L (98-107); CK-MB VALUE MASS < 1.0 NG/ML (<3.6); CPK CREATINE PHOSPHOKINASE 27 U/L (34-145); CREATININE FOR GFR 0.75 MG/DL (0.55-1.30); GLOMERULAR FILTRATION RATE > 60.0 (>32); GLUCOSE, FASTING 91 MG/DL (74-106); POTASSIUM SERUM 4.6 MMOL/L (3.5-5.1); SODIUM LEVEL 141 MMOL/L (136-145); TOTAL PROTEIN 6.8 G/DL (5.7-8.2)
[2022-10-22] MEDS ORDERED: ISOVUE-370 76% 100ML VIAL As Ordered ONE (21:59)
[2022-10-22 22:59] LABS: CK-MB VALUE MASS 1.7 NG/ML (<3.6)
[2022-10-22 23:02] LABS: FREE T4 0.71 NG/DL (0.89-1.76)
[2022-10-22 23:03] LABS: THYROID STIMULATING HORMONE 2.144 uIU/ML (0.55-4.78)
[2022-10-22 23:30] VITALS: BP 129/64; TEMP 98
[2022-10-22 23:32] LABS: MB/CK RELATIVE INDEX 3.54 (< OR =4); PHOSPHORUS LEVEL 3.5 MG/DL (2.4-5.1)
[2022-10-22 23:53] VITALS: O2SAT 98
[2022-10-23 00:21] LABS: MAGNESIUM LEVEL 1.8 MG/DL (1.8-2.4)
== END 2022-10-23 00:40 | disposition home or self-care (01) ==
LOC: M ED 15:38
DX: R20.9 Unspecified disturbances of skin sensation (principal); I44.0 Atrioventricular block, first degree; I45.10 Unspecified right bundle-branch block; I44.4 Left anterior fascicular block; G43.909 Migraine, unspecified, not intractable, without status migrainosus; K21.9 Gastro-esophageal reflux disease without esophagitis; I10 Essential (primary) hypertension; Z88.0 Allergy status to penicillin; Z88.1 Allergy status to other antibiotic agents; Z88.5 Allergy status to narcotic agent; Z95.0 Presence of cardiac pacemaker; Z79.82 Long term (current) use of aspirin; Z79.899 Other long term (current) drug therapy
CPT/HCPCS: 36415; 70450; 70496; 70498; 71046; 80048; 80076; 82550; 82553; 83690; 83735; 83880; 84100; 84439; 84443; 84484; 85025; 85610; 85730; 93005; 93970; 99284; Q9967

== ENCOUNTER → 2022-11-18 | Outpatient (CLI) | payer OTHER ==
[2022-11-18 16:35] LABS: PERCENT SATURATION 27.1 % (13.2-45.0)
== END ==
LOC: M WUC 12:11
PROVIDERS: ATTEND Family Medicine
DX: D56.8 Other thalassemias (principal)

== ENCOUNTER → 2022-11-18 | Outpatient (CLI) | payer OTHER ==
[2022-11-18 16:35] LABS: IRON (FE) 68 UG/DL (50-170)
[2022-11-18 16:36] LABS: ALBUMIN 2.5 G/DL (3.2-5.2); ALKALINE PHOSPHATASE 95 U/L (46-116); ALT/SGPT < 9 U/L (7.0-40); AST/SGOT 12 U/L (<34); BILIRUBIN,TOTAL 0.4 MG/DL (0.3-1.2); BLOOD UREA NITROGEN 18 MG/DL (9-23); CALCIUM LEVEL 8.4 MG/DL (8.3-10.6); CARBON DIOXIDE LEVEL 37 MMOL/L (20-31); CHLORIDE LEVEL 101 MMOL/L (98-107); CREATININE FOR GFR 0.57 MG/DL (0.55-1.30); GLOMERULAR FILTRATION RATE > 60.0 (>32); GLUCOSE, FASTING 96 MG/DL (74-106); POTASSIUM SERUM 3.9 MMOL/L (3.5-5.1); SODIUM LEVEL 142 MMOL/L (136-145); TOTAL PROTEIN 6.6 G/DL (5.7-8.2)
[2022-11-18 16:38] LABS: FERRITIN 87.8 NG/ML (7.3-270.7)
[2022-11-18 17:09] LABS: BASO # 0.1 10^3/uL (0.0-0.2); BASO % 0.8 % (0.0-1.0); EOS # 0.3 10^3/uL (0.0-0.5); EOS % 4.1 % (0.0-3.0); HEMATOCRIT 31.7 % (36.0-47.0); HEMOGLOBIN 9.3 g/dl (12.0-15.5); LYMPH # 1.2 10^3/uL (1.5-5.0); LYMPH % 15.7 % (24.0-44.0); MEAN CORPUSCULAR HEMOGLOBIN 20.4 pg (27.0-33.0); MEAN CORPUSCULAR HGB CONC 29.3 g/dl (32.0-36.5); MEAN CORPUSCULAR VOLUME 69.7 fl (80.0-96.0); MONO # 0.8 10^3/uL (0.0-0.8); MONO % 10.5 % (2.0-8.0); NEUTROPHILS # 5.2 10^3/uL (1.5-8.5); NEUTROPHILS % 68.5 % (36.0-66.0); PLATELET COUNT, AUTOMATED 219 10^3/uL (150-450); RED BLOOD COUNT 4.55 10^6/uL (4.00-5.40); WHITE BLOOD COUNT 7.6 10^3/uL (4.0-10.0)
== END ==
LOC: M WUC 12:13
PROVIDERS: ATTEND Internal Medicine Cardiovascular Disease
DX: I50.42 Chronic combined systolic (congestive) and diastolic (congestive) heart failure (principal); D50.0 Iron deficiency anemia secondary to blood loss (chronic); I25.10 Atherosclerotic heart disease of native coronary artery without angina pectoris; I35.0 Nonrheumatic aortic (valve) stenosis; I11.0 Hypertensive heart disease with heart failure; R06.02 Shortness of breath; J84.9 Interstitial pulmonary disease, unspecified; R91.8 Other nonspecific abnormal finding of lung field; D56.8 Other thalassemias

== ENCOUNTER → 2023-02-23 | Outpatient (REF) | payer OTHER | LOC: M LAB REF 12:09 | PROVIDERS: ATTEND Family Medicine | DX: E53.8 Deficiency of other specified B group vitamins (principal) ==

== ENCOUNTER → 2023-07-20 | Outpatient (CLI) | payer OTHER ==
[~2023-07-20] MED LIST changes: -ASPI-161 PO; +ASPI-615 PO
== END ==
LOC: M WHC 07:39
PROVIDERS: ATTEND Family Medicine
DX: Z12.31 Encounter for screening mammogram for malignant neoplasm of breast (principal); Z13.820 Encounter for screening for osteoporosis; M81.0 Age-related osteoporosis without current pathological fracture

== ENCOUNTER → 2023-08-16 | Outpatient (CLI) | payer OTHER | LOC: M WUC 11:50 | PROVIDERS: ATTEND Physician Assistant | DX: J98.11 Atelectasis (principal); R05.9 Cough, unspecified; R53.83 Other fatigue; Z20.828 Contact with and (suspected) exposure to other viral communicable diseases ==

== ENCOUNTER → 2023-11-09 | Outpatient (CLI) | payer OTHER | LOC: M PLAIMG 10:06 | PROVIDERS: ATTEND Internal Medicine Pulmonary Disease | DX: R06.02 Shortness of breath (principal); J98.11 Atelectasis ==

== ENCOUNTER → 2023-12-05 | Outpatient (CLI) | payer OTHER | LOC: M PLAIMG 09:52 | PROVIDERS: ATTEND Internal Medicine Cardiovascular Disease | DX: I35.0 Nonrheumatic aortic (valve) stenosis (principal) ==

== ENCOUNTER → 2024-01-20 | Outpatient (REF) | payer OTHER ==
[~2024-01-20] MED LIST changes: +GABA-1172 PO; -GABA-282 PO
[2024-01-20 17:25] LABS: FERRITIN 30.9 NG/ML (7.3-270.7)
[2024-01-20 17:26] LABS: FOLATE 5.5 NG/ML (>5.4)
== END ==
LOC: M LAB REF 16:25
PROVIDERS: ATTEND Family Medicine
DX: I50.22 Chronic systolic (congestive) heart failure (principal); D64.9 Anemia, unspecified

== ENCOUNTER → 2024-02-01 | Outpatient (CLI) | payer OTHER ==
[2024-02-01 17:48] LABS: CALCIUM LEVEL 9.4 MG/DL (8.3-10.6); CREATININE FOR GFR 0.96 MG/DL (0.55-1.30); GLOMERULAR FILTRATION RATE 58.4 (>32); POTASSIUM SERUM 4.9 MMOL/L (3.5-5.1)
== END ==
LOC: M WUC 14:55
PROVIDERS: ATTEND Internal Medicine Pulmonary Disease
DX: I50.33 Acute on chronic diastolic (congestive) heart failure (principal); I11.0 Hypertensive heart disease with heart failure

== ENCOUNTER → 2024-07-31 | Outpatient (CLI) | payer OTHER ==
[2024-07-31 19:07] LABS: BASO # 0.1 10^3/uL (0.0-0.2); BASO % 0.7 % (0.0-1.0); EOS # 0.2 10^3/uL (0.0-0.5); EOS % 1.7 % (0.0-3.0); HEMATOCRIT 34.2 % (36.0-47.0); HEMOGLOBIN 10.2 g/dl (12.0-15.5); LYMPH % 9.9 % (24.0-44.0); MEAN CORPUSCULAR HEMOGLOBIN 20.2 pg (27.0-33.0); MEAN CORPUSCULAR HGB CONC 29.8 g/dl (32.0-36.5); MEAN CORPUSCULAR VOLUME 67.7 fl (80.0-96.0); MONO # 0.9 10^3/uL (0.0-0.8); MONO % 9.2 % (2.0-8.0); NEUTROPHILS # 7.8 10^3/uL (1.5-8.5); NEUTROPHILS % 78.2 % (36.0-66.0); PLATELET COUNT, AUTOMATED 281 10^3/uL (150-450); RED BLOOD COUNT 5.05 10^6/uL (4.00-5.40)
[2024-07-31 19:10] LABS: ALBUMIN 2.7 G/DL (3.2-5.2); CALCIUM LEVEL 8.5 MG/DL (8.3-10.6); CREATININE FOR GFR 0.92 MG/DL (0.55-1.30); GLOMERULAR FILTRATION RATE 59.9 (>32); PHOSPHORUS LEVEL 3.8 MG/DL (2.4-5.1); POTASSIUM SERUM 4.1 MMOL/L (3.5-5.1)
== END ==
LOC: M WUC 12:50
PROVIDERS: ATTEND Registered Nurse
DX: R06.02 Shortness of breath (principal)

== ENCOUNTER → 2024-11-22 | Outpatient (CLI) | payer MEDICARE, MEDICAID | LOC: M PLAIMG 12:44 | PROVIDERS: ATTEND Registered Nurse | DX: I08.0 Rheumatic disorders of both mitral and aortic valves (principal) ==

== ENCOUNTER → 2024-12-12 | Outpatient (REF) | payer MEDICARE, MEDICAID ==
[~2024-12-12] MED LIST changes: -IBUP1TAB6 PO; +SFHIBU600 PO
== END ==
LOC: M LAB REF 17:42
PROVIDERS: ATTEND Family Medicine
DX: I50.22 Chronic systolic (congestive) heart failure (principal)

== ENCOUNTER → 2025-01-02 | Outpatient (REF) | payer MEDICARE, MEDICAID ==
[~2025-01-02] MED LIST changes: +CARB-19 PO; -CARB1TAB20 PO
[2025-01-02 18:42] LABS: BASO # 0.1 10^3/uL (0.0-0.2); BASO % 0.5 % (0.0-1.0); EOS # 0.2 10^3/uL (0.0-0.5); EOS % 1.7 % (0.0-3.0); LYMPH # 1.2 10^3/uL (1.5-5.0); LYMPH % 11.8 % (24.0-44.0); MONO # 1.0 10^3/uL (0.0-0.8); MONO % 9.9 % (2.0-8.0); NEUTROPHILS # 7.5 10^3/uL (1.5-8.5); NEUTROPHILS % 75.8 % (36.0-66.0); PLATELET COUNT, AUTOMATED 188 10^3/uL (150-450)
[2025-01-02 19:14] LABS: VITAMIN B12 LEVEL 1023.0 PG/ML (211-911)
[2025-01-02 19:15] LABS: IRON (FE) 76.0 UG/DL (50-170)
[2025-01-02 19:17] LABS: PERCENT SATURATION 26.3 % (13.2-45.0)
== END ==
LOC: M LAB REF 17:28
PROVIDERS: ATTEND Family Medicine
DX: D64.9 Anemia, unspecified (principal)

== ENCOUNTER → 2025-01-08 | Outpatient (REF) | payer MEDICARE, MEDICAID | LOC: M LAB REF 14:33 | PROVIDERS: ATTEND Nurse Practitioner Adult Health | DX: I50.33 Acute on chronic diastolic (congestive) heart failure (principal) ==

== ENCOUNTER → 2025-01-22 | Outpatient (CLI) | payer MEDICARE, MEDICAID ==
[2025-01-22 18:37] LABS: CALCIUM LEVEL 8.5 MG/DL (8.3-10.6); CARBON DIOXIDE LEVEL 31.0 MMOL/L (20-31); CHLORIDE LEVEL 101.0 MMOL/L (98-107); CREATININE FOR GFR 0.97 MG/DL (0.55-1.30); GLOMERULAR FILTRATION RATE 56.2 (>32); POTASSIUM SERUM 4.4 MMOL/L (3.5-5.1); SODIUM LEVEL 142.0 MMOL/L (136-145)
== END ==
LOC: M WUC 14:23
PROVIDERS: ATTEND Nurse Practitioner Family
DX: I50.32 Chronic diastolic (congestive) heart failure (principal)

== ENCOUNTER → 2025-04-02 | Outpatient (CLI) | payer MEDICARE, MEDICAID ==
[~2025-04-02] MED LIST changes: -ASPI-312 PO; +[UNRECOGNIZED DRUG - CODE] PO
== END ==
LOC: M WUC 12:43
DX: I50.22 Chronic systolic (congestive) heart failure (principal); R06.02 Shortness of breath